=== PATIENT | female | born 1950 | race Caucasian/White ===

== ENCOUNTER → 2018-02-17 13:16 | Outpatient (CLI) | payer OTHER, SELFPAY ==
--- NOTE | 2018-02-17 13:21 | CDU_ITS ---
Reason For Study: Carotid Stenosis Rt. Velocities/BP Lt. Velocities/BP Prox CCA 139/27 cm/sec. Prox CCA 100/20 cm/sec. Mid CCA 121/24 cm/sec. Mid CCA 78/18 cm/sec. Dist CCA 74/17 cm/sec. Dist CCA 72/22 cm/sec. Prox ICA 59/21 cm/sec. Prox ICA 71/24 cm/sec. Mid ICA 83/29 cm/sec. Mid ICA 75/26 cm/sec. Dist ICA 94/30 cm/sec. Dist ICA 111/36 cm/sec. Rt. ICA/CCA = 0.77. Lt. ICA/CCA = 1.42. Prox ECA 85/9 cm/sec. Prox ECA 86/8 cm/sec. Rt. Vert. 29/6 cm/sec. Lt. Vert. 70/29 cm/sec. Right Extracranial There is intimal thickening but no significant atherosclerotic plaque noted in the right common carotid artery. There is homogeneous, smooth atherosclerotic plaque noted in the right internal carotid artery. There is no significant atherosclerotic plaque noted in the right external carotid artery. Antegrade flow is noted in the right vertebral artery. Left Extracranial There is intimal thickening but no significant atherosclerotic plaque noted in the left common carotid artery. There is heterogeneous, irregular atherosclerotic plaque noted in the left internal carotid artery. There is no significant atherosclerotic plaque noted in the left external carotid artery. Antegrade flow is noted in the left vertebral artery. Procedure Carotid Duplex 03644. Exam performed in department. Interpretation Summary Mild (<50%) stenosis right extracranial internal carotid. Mild (<50%) stenosis left extracranial internal carotid. Flow within the vertebral arteries is antegrade bilaterally. Ordering Physician: Cecelia Denny Referring Physician: Cecelia Denny Performed By: Amy Iniguez, KAYLEE, RVT
== END ==
PROVIDERS: Family Provider Internal Medicine; PCP Internal Medicine; Visit Provider Internal Medicine
DX: I65.23 Occlusion and stenosis of bilateral carotid arteries (principal)
CPT/HCPCS: 93880

== ENCOUNTER 2021-07-12 19:44 | Emergency (ER) | payer MEDICARE, OTHER, SELFPAY ==
[2021-07-12 19:45] VITALS: BP 139/72; PULSE 87; RESP 18; TEMP 37.4; O2SAT 95; BMI 47.2
[2021-07-12 20:51] LABS: Absolute Lymphocyte Count 0.68 X10^3/uL (0.83-4.51); Absolute Neutrophil Count 3.7 X10^3/uL (2.0-7.7); Basophil# 0.01 X10^3/uL; Basophil% 0.2 % (0-1); Hematocrit 41.7 % (37-47); Lymphocyte # 0.68 X10^3/ul (0.83-4.51); Lymphocyte % 13.9 % (19-41); Mean Corp Hgb Conc 33.6 g/dL (32-36); Mean Corpuscular Volume 92.5 fL (81-99); Mean Platelet Vol. 10.8 fl (6.2-12.0); Monocyte# 0.48 X10^3/uL; Monocyte% 9.8 % (0-10); NRBC Flagged by Analyzer 0 % (0-5); Neutrophil # 3.69 X10^3/uL (2.7-7.7); Neutrophil % 75.7 % (47-70); Platelet Count 129 K/mm3 (150-450); RBC Distribution Width CV 13.1 % (11.6-14.6); RBC Distribution Width SD 44.3 fl (35.1-43.9); Red Blood Count 4.51 M/mm3 (4.2-5.4); White Blood Count 4.9 K/mm3 (4.4-11.0)
[2021-07-12 21:11] LABS: Anion Gap 9 (5-15); BUN 19 mg/dL (7-18); BUN/Creat Ratio 18.4 RATIO (10-20); Calcium,Total 8.3 mg/dL (8.5-10.1); Chloride 97 mmol/L (98-107); Creatinine, Serum 1.03 mg/dL (0.55-1.02); EST Glomerular Filtration Rate 56 mL/min (>60); Est Glom Filt Rate - Afr Amer 68 mL/min (>60); Estimated Creatinine Clearance 35.46 ml/min; Glucose 116 mg/dL (74-106); Potassium 3.7 mmol/L (3.5-5.1); Sodium Level 132 mmol/L (136-145)
--- NOTE | 2021-07-12 21:20 | EDS_ITS ---
HPI History of Present Illness Chief Complaint: General Illness Informant: patient Onset/Context/Timing Onset: Days (Onset of symptoms July 07) Context: Sudden Onset Timing: Continuous Quality: Upper respiratory and GI Location: Viral illness Current Severity: Mild Maximum Severity: Moderate Worsened by: Nothing Relieved by: Nothing Associated Symptoms Associated Symptoms: Symptoms consistent with Covid Narrative Narrative: Patient is a 70-year-old woman who is unvaccinated and presents because of headache, myalgias, arthralgias, subjective fever, loss of taste and smell, cough and not feeling well. She also reports nausea with diarrhea. Prior similar symptoms: No Recent Illness/Hospitalization: No PFSH PFSH no medical history Allergy/AdvReac Type Severity Reaction Status Date / Time metal Allergy Rash Uncoded 07/12/21 19:48 Social History (Updated 07/12/21 @ 21:[address] Richard José MD) household members: none Smoking Status: Never smoker alcohol intake: current alcohol intake frequency: other substance use type: does not use ROS ROS ED Constitutional Constitutional ED: Reports chills, fever(s), subjective and sweats; Denies weight loss Eyes Eyes: Denies blurry vision, change in vision or diplopia ENT ENT ED: Reports rhinorrhea and sore throat; Denies ear pain Cardiovascular Cardiovascular: Denies chest pain, orthopnea, palpitations or paroxysmal nocturnal dyspnea Respiratory/Chest Respiratory/Chest: Reports cough, dyspnea and dyspnea on exertion; Denies orthopnea, paroxysmal nocturnal dyspnea or sputum Gastrointestinal Gastrointestinal: Reports abdominal pain, diarrhea and nausea; Denies constipa tion or vomiting Genitourinary Genitourinary ED: Denies dysuria, hematuria or urinary frequency Musculoskeletal Musculoskeletal: Denies arthralgias, myalgias or neck pain Integumentary Denies rash Neurologic Neurologic: Reports paresthesias; Denies headache(s) Endocrine Endocrinology: Denies polydipsia, polyphagia or polyuria EXAM Physical Exam Const Vital Signs: 07/12/21 19:45 Temperature 99.3 F H Temperature Source Temporal Pulse Rate 87 Respiratory Rate 18 Blood Pressure 139/72 H Blood Pressure Mean 94 Pulse Ox 95 Oxygen Delivery Method Room Air Positive well nourished, well developed and obese General Appearance ED: well developed and other Patient appears ill but not toxic Nutritional Appearance: obese HEENT Reports TM's clear and moist mucous membranes HEENT Narrative: Nares patent with clear drainage. Tympanic Membrane ED: Yes TM's clear Eyes PERRL and EOMs intact bilaterally General Eye ED: Negative for pale conjunctiva or scleral icterus Neck no lymphadenopathy, supple and no JVD Chest Wall inspection of chest normal Resp normal respiratory effort and No clear to auscultation bilaterally Auscultation: rales bilateral lower Cardio regular rate, regular rhythm, S1 normal heart sound, S2 normal heart sound and no murmurs GI normal to inspection, nondistended, normoactive bowel sounds, non-tender and non-distended Palpation: soft Back/Spine no CVA tenderness Cervical Spine: Negative for cervical spine tenderness Thoracic Spine / Upper Back: Negative for thoracic spinal tenderness or paraspinal muscle tenderness Extremity normal to inspection General Extremety ED: Negative for edema or tenderness General Extremity: Negative for edema Neuro oriented x3 and CN's II-XII intact bilaterally Sensorium / Orientation: alert Motor Exam: strength 5/5 throughout Psych mental status grossly normal Skin no rashes or lesions noted and no wounds MDM MDM MDM Narrative Medical decision making narrative: Patient presents with symptoms consistent with Covid. Patient's Covid test is positive. Since she has bilateral rales she has Covid pneumonia. X-ray will not change diagnosis or treatment. She was referred for monoclonal antibody treatment. Lab Data Attestation: I reviewed the patient's lab results. Lab results narrative: Patient's blood work reveals slight elevation in creatinine of 1.03 with a estimated GFR of 56. Labs: Laboratory Results - last 24 hr 07/12/21 07/12/21 20:40 20:40 WBC 4.9 RBC 4.51 Hgb 14.0 Hct 41.7 MCV 92.5 MCH 31.0 MCHC 33.6 RDW Std Deviation 44.3 H RDW Coeff of Nicola 13.1 Plt Count 129 L MPV 10.8 Immature Gran % (Auto) 0.400 Neut % (Auto) 75.7 H Lymph % (Auto) 13.9 L [place] % (Auto) 9.8 Eos % (Auto) 0.0 Baso % (Auto) 0.2 Absolute Neuts (auto) 3.7 Absolute Lymphs (auto) 0.68 L Nucleated RBC % 0 Sodium 132 L Potassium 3.7 Chloride 97 L Carbon Dioxide 26.0 Anion Gap 9 BUN 19 H Creatinine 1.03 H Estim Creat Clear Calc 35.46 Est GFR (MDRD) Af Amer 68 Est GFR (MDRD) Non-Af 56 L BUN/Creatinine Ratio 18.4 Glucose 116 H Calcium 8.3 L Discharge Plan Triage Chief Complaint: General Illness ED Provider: Richard José Dx/Rx/DC Orders Clinical Impression: Pneumonia due to 2019-nCoV Instructions: Coronavirus Disease 2019 (COVID-19): Caring for Yourself or Others Other Ambulatory Orders: COVID Outpatient Monoclonal Antibody Referral (Routine) Timeframe: 1 Day Facility: [facility] - Location: [facility] Ordered By: Dr. Richard José Primary Care Provider: Cecelia Denny Referrals: Cecelia Denny DO [Primary Care Provider] - Disposition Disposition: Home, Self Care
[2021-07-12 22:02] VITALS: BP 106/73; PULSE 86; RESP 22; O2SAT 92
== END 2021-07-12 22:04 | disposition home or self-care (01) ==
LOC: ED 21:44
PROVIDERS: Emergency Provider Emergency Medicine; PCP Internal Medicine
DX: U07.1 COVID-19 (principal); J12.82 Pneumonia due to coronavirus disease 2019; E66.9 Obesity, unspecified; Z68.42 Body mass index [BMI] 45.0-49.9, adult
CPT/HCPCS: 80048; 85025; 87426; 99282; A4216

== ENCOUNTER 2021-07-13 18:46 | Inpatient (IN) | payer MEDICARE, OTHER, SELFPAY ==
[2021-07-13 18:48] VITALS: BP 128/73; PULSE 51; RESP 16; TEMP 36; O2SAT 89; BMI 48.6
[2021-07-13 20:37] VITALS: BP 123/49; PULSE 93; RESP 28; O2SAT 88; O2SAT 93
[2021-07-13 20:55] VITALS: BP 124/73; PULSE 86; RESP 32; O2SAT 93
--- NOTE | 2021-07-13 21:06 | EKG12_ITS ---
Test Reason : SOB Blood Pressure : / mmHG Vent. Rate : 089 BPM Atrial Rate : 089 BPM P-R Int : 154 ms QRS Dur : 074 ms QT Int : 338 ms P-R-T Axes : 027 -38 032 degrees QTc Int : 411 ms Normal sinus rhythm Left axis deviation Nonspecific ST and T wave abnormality Abnormal ECG Confirmed by MURPHY CAMPA, GABINO ([id number]), news video editor MARTIN CHOU ([id number]) on 07/15/2021 1:32:38 PM Referred By: KHRIS Confirmed By:GABINO ARRINGTON MD
--- NOTE | 2021-07-13 21:07 | ED.VIS.DYS ---
HPI History of Present Illness Chief Complaint: Shortness of Breath Informant: patient Onset/Context/Timing Onset: Days (2) Context: gradual Timing: Continuous Quality: Positive for Dyspnea on exertion Current Severity: Mild Maximum Severity: Moderate Worsened by: Exertion Relieved by: Rest Associated Symptoms cough Chest Pain: Positive for None Narrative Narrative: Patient had a positive outpatient Covid test yesterday for symptoms that are on day #7 today of cough, fatigue, fevers, chills, myalgias, diarrhea, change in taste. She is being referred for outpatient monoclonal antibody infusion, but she was watching her pulse oximeter before she could get the infusion confirmation, she began getting hypoxic today at 88% at home. She has no past medical history otherwise and takes no medications at home before this illness. Patient was not vaccinated for Covid. She lives at home alone and has been feeling so weak she is having trouble getting around. [facility] Medical History Non-smoker Varicose veins of bilateral lower extremities with other complications Home Medications NK 07/12/21 [History Last Taken Unknown] Allergy/AdvReac Type Severity Reaction Status Date / Time metal Allergy Rash Uncoded 07/13/21 18:48 Surgical History (Updated 07/13/21 @ 20:38 by Bert Caputo) History of bilateral knee replacement Social History household members: none Smoking Status: Never smoker alcohol intake: current alcohol intake frequency: other substance use type: does not use ROS ROS ED Constitutional Constitutional ED: Reports body ache(s), chills, fatigue, fever(s), headache(s) and malaise Eyes Eyes: Denies change in vision or diplopia ENT ENT ED: Denies rhinorrhea or sore throat Cardiovascular Cardiovascular: Denies chest pain or palpitations Respiratory/Chest Respiratory/Chest: Reports cough, dyspnea and dyspnea on exertion Gastrointestinal Gastrointestinal: Reports diarrhea; Denies abdominal pain, nausea or vomiting Genitourinary Genitourinary ED: Denies dysuria or hematuria Musculoskeletal Musculoskeletal: Denies back pain or neck pain Integumentary Denies abscess or rash Neurologic Neurologic: Reports headache(s); Denies paresthesias or weakness Psychiatric Psychiatric: Denies anxiety or suicidal thoughts EXAM Physical Exam Const Vital Signs: 07/13/21 18:48 07/13/21 20:37 07/13/21 20:55 Temperature 96.8 F L Temperature Source Temporal Pulse Rate 51 L 93 86 Respiratory Rate 16 28 H 32 H Respiratory Effort Short of Breath Respiratory Depth Shallow Respiratory Pattern Irregular Blood Pressure 128/73 H 123/49 H 124/73 H Blood Pressure Mean 91 73 90 Pulse Ox 89 88 93 Oxygen Delivery Method Room Air Nasal Cannula Nasal Cannula Oxygen Flow Rate (L/min) 3 3 07/13/21 21:15 07/13/21 21:51 07/13/21 22:12 Temperature 98.6 F 98.0 F Temperature Source Temporal Temporal Pulse Rate 85 87 Respiratory Rate 24 H 20 H Respiratory Effort Respiratory Depth Respiratory Pattern Blood Pressure 117/61 107/70 Blood Pressure Mean 79 82 Pulse Ox 94 93 93 Oxygen Delivery Method Room Air Nasal Cannula Nasal Cannula Oxygen Flow Rate (L/min) 3 3 3 07/14/21 00:23 Temperature 96.9 F L Temperature Source Temporal Pulse Rate 76 Respiratory Rate 29 H Respiratory Effort Respiratory Depth Respiratory Pattern Blood Pressure 109/63 Blood Pressure Mean 78 Pulse Ox 93 Oxygen Delivery Method Nasal Cannula Oxygen Flow Rate (L/min) 3 Positive well nourished and well developed Constitutional Narrative: Malaised-appearing, no distress General Appearance ED: well developed and NAD HEENT Reports moist mucous membranes normocephalic and atraumatic Eyes PERRL and EOMs intact bilaterally Neck full ROM and supple Resp normal respiratory effort and clear to auscultation bilaterally Resp Narrative: Frequent bronchospasm Cardio regular rate, regular rhythm and no murmurs Rate: Negative for tachycardic GI non-tender and non-distended Auscultation: normoactive bowel sounds Palpation: soft Back/Spine no CVA tenderness General Back: other FROM Extremity normal to inspection and no calf tenderness General Extremety ED: Negative for edema, pulses abnormal or tenderness General Extremity: Negative for edema or pulses abnormal Neuro oriented x3, CN's II-XII intact bilaterally and no sensory deficits noted Sensorium / Orientation: awake and alert Motor Exam: strength 5/5 throughout Skin no rashes or lesions noted and no wounds MDM MDM MDM Narrative Medical decision making narrative: Patient is hemodynamically stable, and clinically stable on a 2 L nasal cannula satting at 93%. She feels she is too weak to go home on oxygen even if we have that is an option. She was given Decadron 6 mg, and she was ruled out for pulmonary embolus. Discussed with hospitalist. Lab Data Attestation: I reviewed the patient's lab results. Labs: Laboratory Results - last 24 hr 07/13/21 07/13/21 07/13/21 20:43 20:43 21:41 WBC 5.4 RBC 4.44 Hgb 13.7 Hct 41.2 MCV 92.8 MCH 30.9 MCHC 33.3 RDW Std Deviation 44.7 H RDW Coeff of Nicola 13.1 Plt Count 132 L MPV 10.9 Immature Gran % (Auto) 0.600 Neut % (Auto) 75.5 H Lymph % (Auto) 15.4 L Campbell % (Auto) 8.3 Eos % (Auto) 0.0 Baso % (Auto) 0.2 Absolute Neuts (auto) 4.1 Absolute Lymphs (auto) 0.84 Nucleated RBC % 0 Differential Comment SCANNED D-Dimer Quant (PE/DVT) Sodium 133 L Potassium 3.8 Chloride 97 L Carbon Dioxide 26.0 Anion Gap 10 BUN 26 H Creatinine 1.11 H Estim Creat Clear Calc 79.06 Est GFR (MDRD) Af Amer 62 Est GFR (MDRD) Non-Af 51 L BUN/Creatinine Ratio 23.4 H Glucose 114 H Lactic Acid 1.3 Calcium 8.3 L Total Bilirubin 0.40 AST 79 H ALT 58 H Alkaline Phosphatase 61 Troponin I High Sens 14 Total Protein 7.7 Albumin 2.9 L Globulin 4.8 H Albumin/Globulin Ratio 0.6 L 07/13/21 21:41 WBC RBC Hgb Hct MCV MCH MCHC RDW Std Deviation RDW Coeff of Nicola Plt Count MPV Immature Gran % (Auto) Neut % (Auto) Lymph % (Auto) Campbell % (Auto) Eos % (Auto) Baso % (Auto) Absolute Neuts (auto) Absolute Lymphs (auto) Nucleated RBC % Differential Comment D-Dimer Quant (PE/DVT) 2.85 H* Sodium Potassium Chloride Carbon Dioxide Anion Gap BUN Creatinine Estim Creat Clear Calc Est GFR (MDRD) Af Amer Est GFR (MDRD) Non-Af BUN/Creatinine Ratio Glucose Lactic Acid Calcium Total Bilirubin AST ALT Alkaline Phosphatase Troponin I High Sens Total Protein Albumin Globulin Albumin/Globulin Ratio Radiography Diagnostic Testing: Radiology Impression Chest X-Ray 07/13/21 21:20 IMPRESSION: Perihilar and lower lobe reticular and alveolar opacities suspicious for pneumonia. Electronically Signed: Elroy Joseph DO at 22:11 EDT Tel , Service support , Chest CTA 07/13/21 22:32 IMPRESSION: Findings suggest multifocal pneumonia. Normal CTA chest examination, without a demonstrated pulmonary embolism or arterial dissection. Electronically Signed: Adryan Meza MD at 0:18 EDT Tel , Service support , EKG Initial EKG: Attestation: I personally reviewed and interpreted this EKG as follows: Interpretation: Sinus Rhythm, No Acute Injury Pattern and LAFB Comments: PAC, PVC Discharge Plan Dx/Rx/DC Orders Clinical Impression: Pneumonia due to 2019-nCoV, Hypoxemia, Generalized weakness Disposition Disposition: [facility]
[2021-07-13 21:15] VITALS: O2SAT 94
--- NOTE | 2021-07-13 21:20 | RAD_ITS ---
INDICATION: cough EXAMINATION/TECHNIQUE: X-RAY - XR Chest 1 View COMPARISON: Chest x-ray 06/02/2012 FINDINGS: LINES/DEVICES: None. LUNGS: Mixed reticular and alveolar opacities perihilar and lower lobe distribution. No pleural effusion. No pneumothorax. No mass or nodule. MEDIASTINUM AND CARDIOVASCULAR STRUCTURES: Normal size heart with no evidence of pulmonary vascular congestion. BONES AND SOFT TISSUES: Age expected degenerative changes. No fracture or malalignment. RAD/Chest 1 View (Portable) IMPRESSION: Perihilar and lower lobe reticular and alveolar opacities suspicious for pneumonia. Electronically Signed: Elroy Joseph DO at 22:11 EDT Tel , Service support ,
[2021-07-13 21:40] LABS: Absolute Lymphocyte Count 0.84 X10^3/uL (0.83-4.51); Absolute Neutrophil Count 4.1 X10^3/uL (2.0-7.7); Basophil# 0.01 X10^3/uL; Basophil% 0.2 % (0-1); Hematocrit 41.2 % (37-47); Hemoglobin 13.7 g/dL (12.0-15.0); Lymphocyte # 0.84 X10^3/ul (0.83-4.51); Lymphocyte % 15.4 % (19-41); Mean Corp Hgb Conc 33.3 g/dL (32-36); Mean Corpuscular Hgb 30.9 pg (27.0-32.0); Mean Corpuscular Volume 92.8 fL (81-99); Mean Platelet Vol. 10.9 fl (6.2-12.0); Monocyte# 0.45 X10^3/uL; Monocyte% 8.3 % (0-10); NRBC Flagged by Analyzer 0 % (0-5); Neutrophil # 4.11 X10^3/uL (2.7-7.7); Neutrophil % 75.5 % (47-70); POSITIVE MORPHOLOGY YES; Platelet Count 132 K/mm3 (150-450); RBC Distribution Width CV 13.1 % (11.6-14.6); RBC Distribution Width SD 44.7 fl (35.1-43.9); Red Blood Count 4.44 M/mm3 (4.2-5.4); White Blood Count 5.4 K/mm3 (4.4-11.0)
[2021-07-13 21:42] LABS: Differential Indicated SCAN CRITERIA MET
[2021-07-13] MEDS: dexAMETHasone 4 MG/ML Vial 6 MG IV (21:50)
[2021-07-13 21:51] VITALS: BP 117/61; PULSE 85; RESP 24; TEMP 37; O2SAT 93
[2021-07-13 21:52] LABS: ALB/GLOB Ratio 0.6 RATIO (0.9-2.4); AST(SGOT) 79 U/L (15-37); Alanine Aminotransfer ALT/SGPT 58 U/L (13-56); Albumin, Serum 2.9 g/dL (3.2-5.0); Alkaline Phosphatase 61 U/L (45-117); Anion Gap 10 (5-15); BUN 26 mg/dL (7-18); BUN/Creat Ratio 23.4 RATIO (10-20); Calcium,Total 8.3 mg/dL (8.5-10.1); Chloride 97 mmol/L (98-107); Creatinine, Serum 1.11 mg/dL (0.55-1.02); EST Glomerular Filtration Rate 51 mL/min (>60); Est Glom Filt Rate - Afr Amer 62 mL/min (>60); Estimated Creatinine Clearance 79.06 ml/min; Globulin 4.8 g/dL (2.2-4.2); Glucose 114 mg/dL (74-106); Potassium 3.8 mmol/L (3.5-5.1); Protein, Total 7.7 g/dL (6.4-8.2); Sodium Level 133 mmol/L (136-145); Troponin-I HS 14 pg/mL (3.0-54.0)
[2021-07-13 22:05] LABS: Differential Comment SCANNED
[2021-07-13 22:09] LABS: D-Dimer Quantitative (DVT/PE) 2.85 FEU/ug/m (0.27-0.49)
[2021-07-13 22:12] VITALS: BP 107/70; PULSE 87; RESP 20; RESP 25; TEMP 36.7; O2SAT 93
--- NOTE | 2021-07-13 22:32 | CT_ITS ---
STUDY: CTA CHEST REASON FOR EXAM: Female, 70 years old. Covid, hypoxia, elevated d-dimer RADIATION DOSAGE (If Supplied By Facility): CTDIvol = ( 19.76 ) mGy, DLP = ( 524.44 ) mGycm TECHNIQUE: The examination was performed with the intravenous administration of IV 100mL Isovue-370. Post-processing of the angiographic images was performed, with multiplanar reformation and 3D reconstruction. Individualized dose optimization techniques were used for this CT. COMPARISON: None. FINDINGS: Normal enhancement of the main pulmonary artery and right and left pulmonary arteries. Normal enhancement of the bilateral peripheral pulmonary arteries. Respiratory motion complicates evaluation of the peripheral pulmonary arteries. There is no demonstrated central or segmental pulmonary embolism. There is prominence of the main pulmonary arteries without peripheral pulmonary vascular congestion, suggesting pulmonary hypertension. Normal thoracic aorta and visualized great vessels. There is no demonstrated aortic dissection. Normal heart and pericardium. Normal mediastinum. Normal hilar regions. Normal visualized trachea and bronchi. The lungs are well expanded. Diffuse scattered bilateral groundglass densities. Normal pleura. Normal chest wall structures. There are degenerative changes of thoracic spine. No acute abnormal finding in the visualized upper abdomen. CT/CTA Chest W/WO Contrast IMPRESSION: Findings suggest multifocal pneumonia. Normal CTA chest examination, without a demonstrated pulmonary embolism or arterial dissection. Electronically Signed: Adryan Meza MD at 0:18 EDT Tel , Service support ,
[2021-07-13 22:34] LABS: Lactic Acid 1.3 mmol/L (0.4-1.9)
[2021-07-14] VITALS (10 sets, daily range): BP systolic 108–132; BP diastolic 62–83; PULSE 68–100; RESP 18–29; TEMP 36.1–37.2; O2SAT 92–95; BMI 47.5
[2021-07-14] MEDS: 0.9% Normal Saline 1,000 ML 999 ML IV (00:05)
--- NOTE | 2021-07-14 00:45 | HP.PCM.HOS_ITS ---
HPI - General General Date of Admission: 07/14/21 HPI Narrative CHRIS CURRAN, is a 70 F who presents with hypoxia as well as persistent cough and fatigue. Symptoms of Covid started about 7 days ago and she is unvaccinated. She is supposed to get the monoclonal antibody infusion after presentation to the ER yesterday so she was watching her pulse oximetry at home, however she notes that she was becoming hypoxic and came in when she found that her oxygen saturation was 88%. She was found to have an elevated D-dimer so CTA was performed which was negative for PEs but did show Covid pneumonia. [facility] Medical History Non-smoker Varicose veins of bilateral lower extremities with other complications Home Medications NK 07/12/21 [History Last Taken Unknown] Allergy/AdvReac Type Severity Reaction Status Date / Time metal Allergy Rash Uncoded 07/13/21 18:48 Family History (Updated 07/14/21 @ 02:[address] Jesus Manuel Carty MD) Other Diabetes Surgical History (Updated 07/13/21 @ 20:38 by Bert Caputo) History of bilateral knee replacement Social History household members: none Smoking Status: Never smoker alcohol intake: current alcohol intake frequency: other substance use type: does not use ROS Constitutional Constitutional: Reports chills, fatigue and fever(s); Denies malaise Eyes Eyes: Denies blurry vision ENT HEENT: Reports headache(s); Denies nasal discharge Cardiovascular Cardiovascular: Denies chest pain, dyspnea on exertion or syncope Respiratory/Chest Respiratory/Chest: Reports cough; Denies shortness of breath at rest or shortn ess of breath with exertion Gastrointestinal Gastrointestinal: Reports diarrhea; Denies constipation, nausea or vomiting Genitourinary Genitourinary: Denies dysuria Neurologic Neurologic: Denies focal weakness, numbness or tremor(s) Psychiatric Psychiatric: Denies anxiety or depression Vital Signs Vital Signs Vital Signs: 07/13/21 18:48 07/13/21 20:37 07/13/21 20:55 Temperature 96.8 F L Temperature Source Temporal Pulse Rate 51 L 93 86 Respiratory Rate 16 28 H 32 H Respiratory Effort Short of Breath Respiratory Depth Shallow Respiratory Pattern Irregular Blood Pressure 128/73 H 123/49 H 124/73 H Blood Pressure Mean 91 73 90 Pulse Ox 89 88 93 Oxygen Delivery Method Room Air Nasal Cannula Nasal Cannula Oxygen Flow Rate (L/min) 3 3 07/13/21 21:15 07/13/21 21:51 07/13/21 22:12 Temperature 98.6 F 98.0 F Temperature Source Temporal Temporal Pulse Rate 85 87 Respiratory Rate 24 H 20 H Respiratory Effort Respiratory Depth Respiratory Pattern Blood Pressure 117/61 107/70 Blood Pressure Mean 79 82 Pulse Ox 94 93 93 Oxygen Delivery Method Room Air Nasal Cannula Nasal Cannula Oxygen Flow Rate (L/min) 3 3 3 07/14/21 00:23 Temperature 96.9 F L Temperature Source Temporal Pulse Rate 76 Respiratory Rate 29 H Respiratory Effort Respiratory Depth Respiratory Pattern Blood Pressure 109/63 Blood Pressure Mean 78 Pulse Ox 93 Oxygen Delivery Method Nasal Cannula Oxygen Flow Rate (L/min) 3 Weight Weight: 241 lb Body Mass Index (BMI) 48.6 Physical Exam Const alert, oriented x3 and no apparent distress General Appearance: cooperative HEENT normocephalic and moist oral mucous membranes Eyes PERRL, EOMs intact bilaterally and conjunctivae normal Neck supple and no JVD Resp normal respiratory effort, no retractions, no use of accessory muscles and clear to auscultation bilaterally Auscultation: Negative for crackles, rales, rhonchi or wheezes Cardio regular rate, regular rhythm, S1 normal heart sound, S2 normal heart sound and no murmurs GI soft to palpation, non-tender and non-distended; Negative for hepatosplenomegaly Extremity no clubbing, cyanosis or edema Skin no rashes or lesions noted Neuro no focal motor deficits and no sensory deficits noted Psych affect normal Appearance: appropriate Results Lab / Micro Data Result Diagrams: 07/13/21 20:43 07/13/21 20:43 Labs: Laboratory Results - last 24 hr 07/13/21 20:43: WBC 5.4, RBC 4.44, Hgb 13.7, Hct 41.2, MCV 92.8, MCH 30.9, MCHC 33.3, RDW Std Deviation 44.7 H, RDW Coeff of Nicola 13.1, Plt Count 132 L, MPV 10.9, Immature Gran % (Auto) 0.600, Neut % (Auto) 75.5 H, Lymph % (Auto) 15.4 L, [place] % (Auto) 8.3, Eos % (Auto) 0.0, Baso % (Auto) 0.2, Absolute Neuts (auto) 4.1, Absolute Lymphs (auto) 0.84, Nucleated RBC % 0, Differential Comment SCANNED 07/13/21 20:43: Sodium 133 L, Potassium 3.8, Chloride 97 L, Carbon Dioxide 26.0, Anion Gap 10, BUN 26 H, Creatinine 1.11 H, Estim Creat Clear Calc 79.06, Est GFR (MDRD) Af Amer 62, Est GFR (MDRD) Non-Af 51 L, BUN/Creatinine Ratio 23.4 H, Glucose 114 H, Calcium 8.3 L, Total Bilirubin 0.40, AST 79 H, ALT 58 H, Alkaline Phosphatase 61, Troponin I High Sens 14, Total Protein 7.7, Albumin 2.9 L, Globulin 4.8 H, Albumin/Globulin Ratio 0.6 L 07/13/21 21:41: Lactic Acid 1.3 07/13/21 21:41: D-Dimer Quant (PE/DVT) 2.85 H* Micro: Microbiology 07/13/21 21:41 Nasal Secretion SARS-CoV-2 Antigen (Rapid) - Final SARS-CoV-2 (COVID 19) Radiology Impression Chest X-Ray 07/13/21 21:20 IMPRESSION: Perihilar and lower lobe reticular and alveolar opacities suspicious for pneumonia. Electronically Signed: Elroy Joseph DO at 22:11 EDT Tel , Service support , Chest CTA 07/13/21 22:32 IMPRESSION: Findings suggest multifocal pneumonia. Normal CTA chest examination, without a demonstrated pulmonary embolism or arterial dissection. Electronically Signed: Adryan Meza MD at 0:18 EDT Tel , Service support , Assessment & Plan Assessment/Plan (1) Pneumonia due to 2019-nCoV: (2) Acute respiratory failure with hypoxia: PLAN: 1. Acute hypoxic respiratory failure secondary to COVID-19 pneumonia -We will continue with remdesivir and Decadron since symptoms onset is within the last 7 days -Continue with Lovenox, CT of the chest was negative for PE -Encourage incentive spirometry -Encourage ambulation -Continue with nasal cannula -PT/OT for evaluation and possible placement as she is complaining of being a li ttle bit weak -Sputum culture pending DVT: Lovenox Charges/Coding Visit Charges Inpatient E&M: 37193 Init Hosp L2
--- NOTE | 2021-07-14 04:58 | PCS.PANDOC ---
PANDEMIC DOCUMENTATION INITIATED: Date: 06/17/2021 Time: 190
[2021-07-14 07:02] LABS: Absolute Lymphocyte Count 0.67 X10^3/uL (0.83-4.51); Absolute Neutrophil Count 3.2 X10^3/uL (2.0-7.7); Hematocrit 38.7 % (37-47); Hemoglobin 12.7 g/dL (12.0-15.0); Lymphocyte # 0.67 X10^3/ul (0.83-4.51); Lymphocyte % 16.3 % (19-41); Mean Corp Hgb Conc 32.8 g/dL (32-36); Mean Corpuscular Hgb 31.1 pg (27.0-32.0); Mean Corpuscular Volume 94.6 fL (81-99); Mean Platelet Vol. 11.1 fl (6.2-12.0); Monocyte# 0.27 X10^3/uL; Monocyte% 6.6 % (0-10); NRBC Flagged by Analyzer 0 % (0-5); Neutrophil # 3.15 X10^3/uL (2.7-7.7); Neutrophil % 76.6 % (47-70); POSITIVE MORPHOLOGY YES; Platelet Count 142 K/mm3 (150-450); RBC Distribution Width CV 13.3 % (11.6-14.6); RBC Distribution Width SD 46.8 fl (35.1-43.9); Red Blood Count 4.09 M/mm3 (4.2-5.4); White Blood Count 4.1 K/mm3 (4.4-11.0)
[2021-07-14 07:08] LABS: Differential Indicated SCAN CRITERIA MET
[2021-07-14 07:22] LABS: ALB/GLOB Ratio 0.5 RATIO (0.9-2.4); AST(SGOT) 68 U/L (15-37); Alanine Aminotransfer ALT/SGPT 50 U/L (13-56); Albumin, Serum 2.6 g/dL (3.2-5.0); Alkaline Phosphatase 58 U/L (45-117); Anion Gap 8 (5-15); BUN 21 mg/dL (7-18); BUN/Creat Ratio 30.3 RATIO (10-20); Calcium,Total 8.4 mg/dL (8.5-10.1); Chloride 101 mmol/L (98-107); Creatinine, Serum 0.69 mg/dL (0.55-1.02); EST Glomerular Filtration Rate 88 mL/min (>60); Est Glom Filt Rate - Afr Amer 107 mL/min (>60); Estimated Creatinine Clearance 36.53 ml/min; Globulin 4.8 g/dL (2.2-4.2); Glucose 151 mg/dL (74-106); Potassium 4.2 mmol/L (3.5-5.1); Protein, Total 7.4 g/dL (6.4-8.2); Sodium Level 136 mmol/L (136-145)
[2021-07-14 08:11] LABS: Differential Comment SCANNED
[2021-07-14 09:26] LABS: Reactive Lymphocyte 1+
[2021-07-14] MEDS: dexAMETHasone 4 MG Tablet 6 MG PO (09:41)
[2021-07-14] MEDS: Enoxaparin 40 MG/0.4 ML Syringe SC ×2 (09:41→22:09)
[2021-07-14] MEDS: guaiFENesin/D-Methorphan TAB.SR.12H 1 TABLET PO ×2 (13:16→22:09)
--- NOTE | 2021-07-14 13:23 | PCM.PN.HOSP ---
Subjective Subjective Patient admitted with 7 days of cold symptoms started with cough, shortness of breath on exertion, weakness, loss of taste and smell, diarrhea. Patient did not had Covid vaccine. She was found hypoxic at home 88% on room air. Elevated D-dimer CTA negative for PE but showed Covid 19 pneumonia Objective Data Objective Data Vital Signs: Vital Signs Temp Pulse Resp BP Pulse Ox 98.1 F 77 18 110/67 92 07/14/21 13:17 07/14/21 13:17 07/14/21 13:17 07/14/21 13:17 07/14/21 13:17 Oxygen Flow Rate (L/min) 4 Oxygen Delivery Method Room Air Weight: 243 lb 3.2 oz Body Mass Index (BMI) 47.5 Intake & Output: Intake and Output for Last 24 Hours 07/12/21 07/13/21 07/14/21 23:59 23:59 23:59 Intake Total 1620 / 1620 Balance 1620 / 1620 Lab / Micro Data Result Diagrams: 07/14/21 05:58 07/14/21 05:58 Labs: Laboratory Results - last 24 hr 07/13/21 20:43: WBC 5.4, RBC 4.44, Hgb 13.7, Hct 41.2, MCV 92.8, MCH 30.9, MCHC 33.3, RDW Std Deviation 44.7 H, RDW Coeff of Nicola 13.1, Plt Count 132 L, MPV 10.9, Immature Gran % (Auto) 0.600, Neut % (Auto) 75.5 H, Lymph % (Auto) 15.4 L, [place] % (Auto) 8.3, Eos % (Auto) 0.0, Baso % (Auto) 0.2, Absolute Neuts (auto) 4.1, Absolute Lymphs (auto) 0.84, Nucleated RBC % 0, Differential Comment SCANNED 07/13/21 20:43: Sodium 133 L, Potassium 3.8, Chloride 97 L, Carbon Dioxide 26.0, Anion Gap 10, BUN 26 H, Creatinine 1.11 H, Estim Creat Clear Calc 79.06, Est GFR (MDRD) Af Amer 62, Est GFR (MDRD) Non-Af 51 L, BUN/Creatinine Ratio 23.4 H, Glucose 114 H, Calcium 8.3 L, Total Bilirubin 0.40, AST 79 H, ALT 58 H, Alkaline Phosphatase 61, Troponin I High Sens 14, Total Protein 7.7, Albumin 2.9 L, Globulin 4.8 H, Albumin/Globulin Ratio 0.6 L 07/13/21 21:41: Lactic Acid 1.3 07/13/21 21:41: D-Dimer Quant (PE/DVT) 2.85 H* 07/14/21 05:58: WBC 4.1 L, RBC 4.09 L, Hgb 12.7, Hct 38.7, MCV 94.6, MCH 31.1, MCHC 32.8, RDW Std Deviation 46.8 H, RDW Coeff of Nicola 13.3, Plt Count 142 L, MPV 11.1, Immature Gran % (Auto) 0.500, Neut % (Auto) 76.6 H, Lymph % (Auto) 16.3 L, [place] % (Auto) 6.6, Eos % (Auto) 0.0, Baso % (Auto) 0.0, Absolute Neuts (auto) 3.2, Absolute Lymphs (auto) 0.67 L, Nucleated RBC % 0, Differential Comment SCANNED, Atypical Lymphocytes DELIVERY MERCHANDISER, Reactive Lymphocytes 1+ 07/14/21 05:58: Sodium 136, Potassium 4.2, Chloride 101, Carbon Dioxide 27.0, Anion Gap 8, BUN 21 H, Creatinine 0.69, Estim Creat Clear Calc 36.53, Est GFR (MDRD) Af Amer 107, Est GFR (MDRD) Non-Af 88, BUN/Creatinine Ratio 30.3 H, Glucose 151 H, Calcium 8.4 L, Total Bilirubin 0.40, AST 68 H, ALT 50, Alkaline Phosphatase 58, Total Protein 7.4, Albumin 2.6 L, Globulin 4.8 H, Albumin/Globulin Ratio 0.5 L Micro: Microbiology 07/13/21 21:41 Nasal Secretion SARS-CoV-2 Antigen (Rapid) - Final SARS-CoV-2 (COVID 19) Radiography Diagnostic Testing: Radiology Impression Chest X-Ray 07/13/21 21:20 IMPRESSION: Perihilar and lower lobe reticular and alveolar opacities suspicious for pneumonia. Electronically Signed: Elroy Joseph DO at 22:11 EDT Tel , Service support , Chest CTA 07/13/21 22:32 IMPRESSION: Findings suggest multifocal pneumonia. Normal CTA chest examination, without a demonstrated pulmonary embolism or arterial dissection. Electronically Signed: Adryan Meza MD at 0:18 EDT Tel , Service support , Physical Exam Narrative Physical exam. General: Alert, Oriented x3, Cooperative HEENT: Atraumatic, PERRLA, EOMI, Normocephalic Oral: No Gingival or Mucosal Lesions/ Ulcerations Neck: Supple, No JVD, Negative Carotid Bruits Lungs: Air entry diminished in bilateral lung bases. Mild bilateral fine crackles. Cardiovascular: Regular rate, Regular Rhythm, Normal S1, Normal S2, No murmurs Abdomen: Bowel Sounds Present, Soft, Non Tender, Non-Distended : No renal angle tenderness. No suprapubic tenderness. Extremities: No edema, Capillary Refill Less than 3 Seconds Skin: No rashes, No breakdown Musculoskeletal: No Tenderness to Palpation of Joints or Extremities Neurological: Cranial nerves II-XII grossly intact, DTR 2+/4 and Symmetrical, Neuro grossly intact Psych/Mental Status: Normal Affect, Appropriate. Assessment & Plan Assessment/Plan (1) Acute respiratory failure with hypoxia: (2) Pneumonia due to 2019-nCoV: PLAN: This is a 70-year-old female admitted with cough, shortness of breath on exertion nonspecific generalized symptoms of COVID-19 pneumonia. 1. Acute hypoxic respiratory failure secondary to COVID-19 pneumonia: Patient is started on remdesivir and Decadron and discontinued. CTA chest negative for PE as mentioned below. Incentive spirometry, Pep and Mucinex D. Monitor labs CBC CMP while patient on remdesivir. Blood cultures are negative. PT and OT evaluation. Sputum culture ordered. 2. Mild acute viral hepatitis due to COVID-19: AST 68. VTE prophylaxis: Lovenox 40 mgl subcu twice daily. Discontinue if platelet count drops less than 50,000 or hemoglobin less than 8 g% Clinical Impression(s) from Imaging Studies Chest X-Ray 07/13/21 21:20 IMPRESSION: Perihilar and lower lobe reticular and alveolar opacities suspicious for pneumonia. Chest CTA 09/11/21 22:32 IMPRESSION: Findings suggest multifocal pneumonia. Normal CTA chest examination, without a demonstrated pulmonary embolism or arterial dissection. Electronically Signed: Adryan Meza MD at 0:18 EDT Tel , Service support , Charges/Coding Visit Charges Inpatient E&M: 00045 Subs Hosp L2
[2021-07-15] VITALS (7 sets, daily range): BP systolic 104–116; BP diastolic 62–74; PULSE 88–101; RESP 18–24; TEMP 36.6–37; O2SAT 86–94
[2021-07-15 06:47] LABS: Absolute Lymphocyte Count 0.88 X10^3/uL (0.83-4.51); Absolute Neutrophil Count 6.7 X10^3/uL (2.0-7.7); Basophil# 0.02 X10^3/uL; Basophil% 0.2 % (0-1); Hemoglobin 13.4 g/dL (12.0-15.0); Lymphocyte # 0.88 X10^3/ul (0.83-4.51); Lymphocyte % 10.6 % (19-41); Mean Corp Hgb Conc 32.7 g/dL (32-36); Mean Corpuscular Hgb 30.7 pg (27.0-32.0); Monocyte# 0.62 X10^3/uL; Monocyte% 7.5 % (0-10); NRBC Flagged by Analyzer 0 % (0-5); Neutrophil # 6.73 X10^3/uL (2.7-7.7); Neutrophil % 81.1 % (47-70); Platelet Count 169 K/mm3 (150-450); RBC Distribution Width CV 12.9 % (11.6-14.6); Red Blood Count 4.36 M/mm3 (4.2-5.4); White Blood Count 8.3 K/mm3 (4.4-11.0)
[2021-07-15 07:28] LABS: ALB/GLOB Ratio 0.5 RATIO (0.9-2.4); AST(SGOT) 68 U/L (15-37); Alanine Aminotransfer ALT/SGPT 56 U/L (13-56); Albumin, Serum 2.5 g/dL (3.2-5.0); Alkaline Phosphatase 63 U/L (45-117); Anion Gap 7 (5-15); BUN 25 mg/dL (7-18); BUN/Creat Ratio 40.7 RATIO (10-20); Calcium,Total 8.7 mg/dL (8.5-10.1); Chloride 105 mmol/L (98-107); Creatinine, Serum 0.61 mg/dL (0.55-1.02); EST Glomerular Filtration Rate 101 mL/min (>60); Est Glom Filt Rate - Afr Amer 123 mL/min (>60); Estimated Creatinine Clearance 36.53 ml/min; Globulin 4.7 g/dL (2.2-4.2); Glucose 133 mg/dL (74-106); Potassium 3.8 mmol/L (3.5-5.1); Protein, Total 7.2 g/dL (6.4-8.2); Sodium Level 138 mmol/L (136-145)
--- NOTE | 2021-07-15 10:47 | NURSING ---
PTS O2 SAT DROPPED TO 85% ON 7L NC - HIGH FLOW - WHILE AMBULATING IN BR.
[2021-07-15] MEDS: dexAMETHasone 4 MG Tablet 6 MG PO (10:49)
[2021-07-15] MEDS: Enoxaparin 40 MG/0.4 ML Syringe SC ×2 (10:49→21:55)
[2021-07-15] MEDS: guaiFENesin/D-Methorphan TAB.SR.12H 1 TABLET PO ×2 (10:50→21:55)
--- NOTE | 2021-07-15 13:36 | CASEMGMT ---
JOSE GUADALUPE MONTES Assessment: Face to Face with pt for initial transition planning/care coordination assessment. JOSE GUADALUPE MONTES introduced self and role at [facility], pt voices understanding and consents to assessment. Pt is A/O x4 and answers all questions appropriately at this time. Pt sitting up in bed with O2 on in no distress. Care providers, pharmacy, and demographics verified/updated. Admitting Dx: COVID PNA PCP:[facility] Specialists: Pt has a massage therapist, accupuncturist and chiropractor. [facility]erred [facility] Insurance: PhyliciaJANINE Gutiérrez Prescription Benefit: yes LW/HPOA: Pt states she has a LW/DPOA and her DPOA is her son Ervin Rene. She is aware that it is not on file at [facility] and she may bring it in when she is better. LNOK: rEvin Rene, son Living Arrangements: Pt lives alone in a single story condo with no steps to enter. Pt reports being I in ADL's and denies concerns at home. Transportation: Pt drives self and denies concerns with transportation. DME/HHC/SNF: Pt has a cane and walker at home but does not use. Pt states she has had [facility] HHC in the past and has no hx of SNF stays. Pt states she was tested for COVID at the drive [place] area of 's office. Pt states she has family who can provide her with groceries and supplies. Pt provided with a verbal list of local in network DME companies. Pt chose [employer]. Pt states no concerns with going home at time of dc. Pt states no further concerns/needs. CM to follow. Advised pt to ask CM if any further question/concerns/needs arise, voices understanding. Pt Goal: Home Plan: Home
--- NOTE | 2021-07-15 16:07 | PN.HOSP_ITS ---
Subjective Subjective Patient on 6 L of oxygen. Mild dyspnea on exertion. Has cough Objective Data Objective Data Vital Signs: Vital Signs Temp Pulse Resp BP Pulse Ox 97.9 F 101 H 20 H 105/70 92 07/15/21 15:43 07/15/21 15:43 07/15/21 15:43 07/15/21 15:43 07/15/21 15:43 Oxygen Flow Rate (L/min) 7 Oxygen Delivery Method Nasal Cannula Weight: 241 lb 10.026 oz Body Mass Index (BMI) 47.5 Intake & Output: Intake and Output for Last 24 Hours 07/13/21 07/14/21 07/15/21 23:59 23:59 23:59 Intake Total 1919 / 1919 1050 / 1050 Balance 1919 / 1919 1050 / 1050 Lab / Micro Data Result Diagrams: 07/15/21 06:36 07/15/21 06:36 Labs: Laboratory Results - last 24 hr 07/15/21 06:36: WBC 8.3, RBC 4.36, Hgb 13.4, Hct 41.0, MCV 94.0, MCH 30.7, MCHC 32.7, RDW Std Deviation 45.0 H, RDW Coeff of Nicola 12.9, Plt Count 169, MPV 11.0, Immature Gran % (Auto) 0.600, Neut % (Auto) 81.1 H, Lymph % (Auto) 10.6 L, [place] % (Auto) 7.5, Eos % (Auto) 0.0, Baso % (Auto) 0.2, Absolute Neuts (auto) 6.7, Absolute Lymphs (auto) 0.88, Nucleated RBC % 0 07/15/21 06:36: Sodium 138, Potassium 3.8, Chloride 105, Carbon Dioxide 26.0, Anion Gap 7, BUN 25 H, Creatinine 0.61, Estim Creat Clear Calc 36.53, Est GFR (MDRD) Af Amer 123, Est GFR (MDRD) Non-Af 101, BUN/Creatinine Ratio 40.7 H, Glucose 133 H, Calcium 8.7, Total Bilirubin 0.30, AST 68 H, ALT 56, Alkaline Phosphatase 63, Total Protein 7.2, Albumin 2.5 L, Globulin 4.7 H, Albumin/Globulin Ratio 0.5 L Micro: Microbiology 07/14/21 06:25 Sputum, Expectorated/Coughed Gram Stain - Final 07/14/21 06:25 Sputum, Expectorated/Coughed Respiratory Culture - Preliminary Appears to be normal respiratory deny. Further studies to follow. 07/13/21 21:41 Nasal Secretion SARS-CoV-2 Antigen (Rapid) - Final SARS-CoV-2 (COVID 19) Physical Exam Narrative Physical exam. General: Alert, Oriented x3, Cooperative HEENT: Atraumatic, PERRLA, EOMI, Normocephalic Oral: No Gingival or Mucosal Lesions/ Ulcerations Neck: Supple, No JVD, Negative Carotid Bruits Lungs: Air entry diminished in bilateral lung bases. Mild bilateral fine crackles. Cardiovascular: Regular rate, Regular Rhythm, Normal S1, Normal S2, No murmurs Abdomen: Bowel Sounds Present, Soft, Non Tender, Non-Distended : No renal angle tenderness. No suprapubic tenderness. Extremities: No edema, Capillary Refill Less than 3 Seconds Skin: No rashes, No breakdown Musculoskeletal: No Tenderness to Palpation of Joints or Extremities Neurological: Cranial nerves II-XII grossly intact, DTR 2+/4 and Symmetrical, Neuro grossly intact Psych/Mental Status: Normal Affect, Appropriate. Assessment & Plan Assessment/Plan (1) Acute respiratory failure with hypoxia: (2) Pneumonia due to 2019-nCoV: PLAN: This is a 70-year-old female admitted with cough, shortness of breath on exertion nonspecific generalized symptoms of COVID-19 pneumonia. 1. Acute hypoxic respiratory failure secondary to COVID-19 pneumonia: Patient is started on remdesivir and Decadron and discontinued. CTA chest negative for PE as mentioned below. Incentive spirometry, Pep and Mucinex D. Monitor labs CBC CMP while patient on remdesivir. Blood cultures are negative. PT and OT evaluation. Sputum culture ordered. 07/15: Clinical update was given to patient's son Mr. Mueller. Labs reviewed with him. Currently patient saturation 92% on 7 L of oxygen. Incentive spirometry and Pep encouraged. 2. Mild acute viral hepatitis due to COVID-19: AST 68. VTE prophylaxis: Lovenox 40 mgl subcu twice daily. Discontinue if platelet count drops less than 50,000 or hemoglobin less than 8 g% Clinical Impression(s) from Imaging Studies Chest X-Ray 07/13/21 21:20 IMPRESSION: Perihilar and lower lobe reticular and alveolar opacities suspicious for pneumonia. Chest CTA 07/13/21 22:32 IMPRESSION: Findings suggest multifocal pneumonia. Normal CTA chest examination, without a demonstrated pulmonary embolism or arterial dissection. Electronically Signed: Adryan Meza MD at 0:18 EDT Tel , Service support , Charges/Coding Visit Charges Inpatient E&M: 40822 Subs Hosp L2
[2021-07-15] MEDS: 0.9% Saline Lock 10 ML Syringe IV (21:56)
[2021-07-16] VITALS (17 sets, daily range): BP systolic 123–147; BP diastolic 80–94; PULSE 74–120; RESP 18–22; TEMP 36.6–36.7; O2SAT 84–93
--- NOTE | 2021-07-16 00:06 | EKG12_ITS ---
Test Reason : IRREG HEART RATE Blood Pressure : / mmHG Vent. Rate : 103 BPM Atrial Rate : 097 BPM P-R Int : 000 ms QRS Dur : 082 ms QT Int : 310 ms P-R-T Axes : 000 -30 019 degrees QTc Int : 406 ms Atrial fibrillation Left axis deviation Nonspecific ST and T wave abnormality Abnormal ECG Confirmed by DC CAMPA, THANH ([id number]), mapping editor MARTIN CHOU ([id number]) on 07/17/2021 10:44:50 AM Referred By: JOSE Confirmed By:THANH IRWIN MD
--- NOTE | 2021-07-16 01:44 | PCM.PN.BLA ---
Progress Note Patient found to have atrial fibrillation. Reportedly no history of atrial fibrillation. Supplement potassium. Check magnesium. Check TSH. Discontinue prophylactic Lovenox and put on therapeutic dose of Lovenox.
[2021-07-16] MEDS: Potassium Chloride Oral Tablet 20 MEQ PO (02:22)
[2021-07-16 07:31] LABS: Absolute Lymphocyte Count 0.86 X10^3/uL (0.83-4.51); Absolute Neutrophil Count 5.2 X10^3/uL (2.0-7.7); Basophil# 0.02 X10^3/uL; Basophil% 0.3 % (0-1); Hematocrit 43.1 % (37-47); Hemoglobin 13.9 g/dL (12.0-15.0); Lymphocyte # 0.86 X10^3/ul (0.83-4.51); Lymphocyte % 12.9 % (19-41); Mean Corp Hgb Conc 32.3 g/dL (32-36); Mean Corpuscular Hgb 30.8 pg (27.0-32.0); Mean Corpuscular Volume 95.4 fL (81-99); Mean Platelet Vol. 10.6 fl (6.2-12.0); Monocyte# 0.61 X10^3/uL; Monocyte% 9.1 % (0-10); NRBC Flagged by Analyzer 0 % (0-5); Neutrophil # 5.15 X10^3/uL (2.7-7.7); POSITIVE MORPHOLOGY YES; Platelet Count 218 K/mm3 (150-450); RBC Distribution Width CV 13.2 % (11.6-14.6); RBC Distribution Width SD 47.2 fl (35.1-43.9); Red Blood Count 4.52 M/mm3 (4.2-5.4); White Blood Count 6.7 K/mm3 (4.4-11.0)
[2021-07-16 07:33] LABS: Differential Indicated SCAN CRITERIA MET
[2021-07-16] MEDS: Enoxaparin 120 MG/0.8 ML Syringe 110 MG SC ×2 (08:13→22:28)
[2021-07-16] MEDS: dexAMETHasone 4 MG Tablet 6 MG PO (08:14)
[2021-07-16] MEDS: guaiFENesin/D-Methorphan TAB.SR.12H 1 TABLET PO ×2 (08:14→22:27)
[2021-07-16 08:30] LABS: ALB/GLOB Ratio 0.5 RATIO (0.9-2.4); AST(SGOT) 51 U/L (15-37); Alanine Aminotransfer ALT/SGPT 54 U/L (13-56); Albumin, Serum 2.4 g/dL (3.2-5.0); Alkaline Phosphatase 64 U/L (45-117); Anion Gap 8 (5-15); BUN 21 mg/dL (7-18); BUN/Creat Ratio 35.9 RATIO (10-20); Calcium,Total 8.6 mg/dL (8.5-10.1); Chloride 108 mmol/L (98-107); Creatinine, Serum 0.58 mg/dL (0.55-1.02); EST Glomerular Filtration Rate 107 mL/min (>60); Est Glom Filt Rate - Afr Amer 130 mL/min (>60); Estimated Creatinine Clearance 36.53 ml/min; Globulin 4.8 g/dL (2.2-4.2); Glucose 123 mg/dL (74-106); Magnesium 2.2 mg/dL (1.6-2.6); Potassium 3.9 mmol/L (3.5-5.1); Protein, Total 7.2 g/dL (6.4-8.2); Sodium Level 143 mmol/L (136-145)
[2021-07-16 08:35] LABS: Reactive Lymphocyte 1+
--- NOTE | 2021-07-16 08:54 | NURSING ---
DR GARCIA HERE ON UNIT - MADE MD AWARE PT REQUIRING 9L HIGH FLOW O2 TO KEEP SATS 88-90%. ALSO, PT HAS BEEN TACHY. STATES CALL RT TO PLACE PT ON AIRVO.
--- NOTE | 2021-07-16 09:44 | CPS ---
turned flow all the way down, patient had difficulty tolerating it.
--- NOTE | 2021-07-16 11:02 | EKG12_ITS ---
Test Reason : Blood Pressure : / mmHG Vent. Rate : 117 BPM Atrial Rate : 068 BPM P-R Int : 000 ms QRS Dur : 068 ms QT Int : 360 ms P-R-T Axes : 000 -28 032 degrees QTc Int : 502 ms Atrial fibrillation Nonspecific ST and T wave abnormality Abnormal ECG Confirmed by DC CAMPA, THANH ([id number]), editor in chief newspaper MARTIN CHOU ([id number]) on 07/18/2021 10:15:45 AM Referred By: JOSE Confirmed By:THANH IRWIN MD
[2021-07-16] MEDS: dilTIAZem 30 MG Tablet PO ×2 (11:12→11:13)
--- NOTE | 2021-07-16 11:42 | NURSING ---
CALLED PT DAUGHTER IN LAW, TENZIN Ordoñez/RICHY
--- NOTE | 2021-07-16 12:46 | PN.HOSP_ITS ---
Subjective Subjective Overnight events noted. Patient went into A. fib with RVR. Patient does not have history of prior cardiac disease or atrial fibrillation. Potassium was supplemented. Prophylactic Lovenox was converted to therapeutic dose. Potassium magnesium and TSH level normal. I talked to the patient's [id number]. Objective Data Objective Data Vital Signs: Vital Signs Temp Pulse Resp BP Pulse Ox 97.9 F 120 H 20 H 123/84 H 87 07/16/21 08:05 07/16/21 10:00 07/16/21 08:05 07/16/21 08:05 07/16/21 08:19 Oxygen Flow Rate (L/min) 9 Oxygen Delivery Method Nasal Cannula Weight: 242 lb 11.663 oz Body Mass Index (BMI) 47.5 Intake & Output: Intake and Output for Last 24 Hours 07/14/21 07/15/21 07/16/21 23:59 23:59 23:59 Intake Total 1920 / 1920 2450 / 2750 1150 / 1150 Balance 1920 / 1920 2450 / 2750 1150 / 1150 Lab / Micro Data Result Diagrams: 07/16/21 07:00 07/16/21 06:50 Labs: Laboratory Results - last 24 hr 07/16/21 06:50: Sodium 143, Potassium 3.9, Chloride 108 H, Carbon Dioxide 27.0, Anion Gap 8, BUN 21 H, Creatinine 0.58, Estim Creat Clear Calc 36.53, Est GFR (MDRD) Af Amer 130, Est GFR (MDRD) Non-Af 107, BUN/Creatinine Ratio 35.9 H, Glucose 123 H, Calcium 8.6, Magnesium 2.2, Total Bilirubin 0.30, AST 51 H, ALT 54, Alkaline Phosphatase 64, Total Protein 7.2, Albumin 2.4 L, Globulin 4.8 H, Albumin/Globulin Ratio 0.5 L, TSH 1.20 07/16/21 07:00: WBC 6.7, RBC 4.52, Hgb 13.9, Hct 43.1, MCV 95.4, MCH 30.8, MCHC 32.3, RDW Std Deviation 47.2 H, RDW Coeff of Nicola 13.2, Plt Count 218, MPV 10.6, Immature Gran % (Auto) 0.700, Neut % (Auto) 77.0 H, Lymph % (Auto) 12.9 L, [place] % (Auto) 9.1, Eos % (Auto) 0.0, Baso % (Auto) 0.3, Absolute Neuts (auto) 5.2, Absolute Lymphs (auto) 0.86, Nucleated RBC % 0, Reactive Lymphocytes 1+ Micro: Microbiology 07/14/21 06:25 Sputum, Expectorated/Coughed Gram Stain - Final 07/14/21 06:25 Sputum, Expectorated/Coughed Respiratory Culture - Final 07/13/21 21:41 Nasal Secretion SARS-CoV-2 Antigen (Rapid) - Final SARS-CoV-2 (COVID 19) Physical Exam Narrative Physical exam. General: Alert, Oriented x3, Cooperative HEENT: Atraumatic, PERRLA, EOMI, Normocephalic Oral: No Gingival or Mucosal Lesions/ Ulcerations Neck: Supple, No JVD, Negative Carotid Bruits Lungs: Air entry diminished in bilateral lung bases. Mild bilateral fine crackles. No palpable crepitus. Cardiovascular: A. fib with RVR, Normal S1, Normal S2, No murmurs Abdomen: Bowel Sounds Present, Soft, Non Tender, Non-Distended : No renal angle tenderness. No suprapubic tenderness. Extremities: No edema, Capillary Refill Less than 3 Seconds Skin: No rashes, No breakdown Musculoskeletal: No Tenderness to Palpation of Joints or Extremities Neurological: Cranial nerves II-XII grossly intact, DTR 2+/4 and Symmetrical, Neuro grossly intact Psych/Mental Status: Normal Affect, Appropriate. Assessment & Plan Assessment/Plan (1) Acute respiratory failure with hypoxia: (2) Pneumonia due to 2019-nCoV: PLAN: This is a 70-year-old female admitted with cough, shortness of breath on exertion nonspecific generalized symptoms of COVID-19 pneumonia. 1. Acute hypoxic respiratory failure secondary to COVID-19 pneumonia: Patient is started on remdesivir and Decadron and discontinued. CTA chest negative for PE as mentioned below. Incentive spirometry, Pep and Mucinex D. Monitor labs CBC CMP while patient on remdesivir. Blood cultures are negative. PT and OT evaluation. Sputum culture ordered. 07/15: Clinical update was given to patient's son Mr. Mueller. Labs reviewed with him. Currently patient saturation 92% on 7 L of oxygen. Incentive spirometry and Pep encouraged. 07/16: Continue treatment. Patient's [id number], Dinah asked about Tocilizumab. I discussed with ID and usually this is indicated for someone who needs ICU level of care, on BiPAP variable therefore she meets the criteria. We further talked about Baricitinib which is JAK2 inhibitor, nonformulary given for similar indication. He asked to see how senior c software developer feels about it. A. fib with RVR, new onset: Started on Cardizem 60 mg every 6 hourly. Patient on therapeutic dose of Lovenox. No prior history of cardiac or lung disease. May be precipitated by pneumonia/COVID-19 or pulmonary cause. 2. Mild acute viral hepatitis due to COVID-19: AST 68. VTE prophylaxis: Lovenox 40 mgl subcu twice daily. Discontinue if platelet count drops less than 50,000 or hemoglobin less than 8 g% Total time of the visit including total time spent in counseling or coordination of care, (more than 50% of the total time, spent in obtaining medical information from nurses and other ancillary care providers,explaining to the patient about labs, imaging, diagnosis and management), discussion with architectural practice manager/senior c software developer, ID and patient's [id number], review of labs and imaging is 30 minutes. Clinical Impression(s) from Imaging Studies Chest X-Ray 07/13/21 21:20 IMPRESSION: Perihilar and lower lobe reticular and alveolar opacities suspicious for pneumonia. Chest CTA 07/13/21 22:32 IMPRESSION: Findings suggest multifocal pneumonia. Normal CTA chest examination, without a demonstrated pulmonary embolism or arterial dissection. Electronically Signed: Adryan Meza MD at 0:18 EDT Tel , Service support , Charges/Coding Visit Charges Inpatient E&M: 19738 Subs Hosp L3
--- NOTE | 2021-07-16 14:15 | NURSING ---
CALLED TO PT ROOM BY SUPERVISOR OF WAY STATING PT FEELS LIKE SHE IS GOING TO PASS OUT, O2 SATS DROPPED INTO 70'S WHEN UP. SUPERVISOR OF WAY ASSISTED PT INTO CHAIR @ BS & PT O2 SAT RECOVERED FAIRLY QUICKLY. O2 SAT 92% ON AIRVO 40L O2.
--- NOTE | 2021-07-16 16:35 | EX.PCM.CONCC ---
Assessment & Plan Assessment/Plan (1) Acute respiratory failure with hypoxia: (2) Pneumonia due to 2019-nCoV: (3) Generalized weakness: PLAN: RECOMMENDATIONS: 1. Consider DELFINA therapy. Defer to ID 2. Continue with Decadron therapy 3. Attempt mild diuresis as tolerated 4. BiPAP rescue if necessary 5. Consider cardiology consult for A. fib with RVR IMPRESSIONS: 1. Acute hypoxic respiratory failure secondary to COVID-19 pneumonia Patient with significant worsening in hypoxia over the course of the hospitalization. This could be exacerbated by A. fib with RVR, but COVID-19 is suspected as the major etiology. Will attempt to diuresis patient tolerates. Patient is on Remdesivir and Decadron therapy. Patient appears to be tolerating these well. Patient would be a marginal candidate for DELFINA therapy given that symptom onset was approximately 10 days ago. Would defer to ID. Patient's liver function would not preclude therapy in my opinion. 2. New onset A. fib with RVR Patient likely has an element of diastolic dysfunction given age. This would be exacerbated by A. fib with RVR. Patient should have an echocardiogram for quantification clarification of heart function. 3. Advanced age/poor primary care/poor insight Complicates care, management, recovery and prognosis. Patient may have other diagnoses that have not been made secondary to poor follow-up with PCP. Blood sugars are only mildly elevated on Decadron therapy. HPI Consult Data Date of Consult: 07/16/21 HPI Narrative HPI Narrative: CHRIS CURRAN is a 70 F, with no reported past medical history, who presented to [facility] on 07/13/2021 secondary to progressive shortness of breath. Patient did have an outpatient Covid test that was positive on the day prior to presentation. Patient had reported 7 days of cough, fever, chills, fatigue and change in taste. Patient had been referred for monoclonal antibody, but was found to be hypoxic at home. Patient reportedly lives alone and has been feeling weak for a couple of days. In the ER, patient was afebrile, normotensive and not tachycardic. Patient was requiring 3 L nasal cannula to maintain saturations. Laboratory work-up showed a relatively normal CBC except for decreased platelets at 132. Patient did have an elevated creatinine of 1.11. CMP was within normal limits, along with lactate. D-dimer was elevated at 2.85, so patient had a CTA of the chest showing multifocal pneumonia with groundglass opacities and no pulmonary embolism. Patient was admitted to the floor and initiated on Remdesivir and Decadron. Patient also received Mucinex and Lovenox prophylaxis. Patient's oxygenation has continued to worsen over the course of the hospitalization. Patient is currently requiring Airvo to maintain saturations, so a pulmonary consult was obtained. Patient denies any history of respiratory complaints. Patient is not a smoker. Patient states she has no past medical history, but readily admits that she does not follow-up with the PCP like she should. Patient states last time she saw her PCP was approximately 2-1/2 years ago. Patient states that she is very adamant that she should not use medications unless they are absolutely necessary. Patient does use multiple herbal and vitamin supplements. Patient also has acupuncture and massage therapy on a monthly basis. Review of systems otherwise negative from a constitutional, HEENT, respiratory, cardiovascular, GI, genitourinary, musculoskeletal, skin, neurologic, psychiatric and hematologic system unless stated above. [facility] Medical History Non-smoker Varicose veins of bilateral lower extremities with other complications Home Medications NK 07/12/21 [History Last Taken Unknown] Allergy/AdvReac Type Severity Reaction Status Date / Time metal Allergy Rash Uncoded 07/13/21 18:48 Family History (Updated 07/14/21 @ 02:[address] Jesus Manuel Carty MD) Other Diabetes Surgical History History of bilateral knee replacement Social History household members: none Smoking Status: Never smoker alcohol intake: current alcohol intake frequency: other substance use type: does not use ROS ROS Narrative See HPI Physical Exam Const alert, oriented x3 and no apparent distress General Appearance: cooperative HEENT normocephalic and moist oral mucous membranes Eyes PERRL, EOMs intact bilaterally and conjunctivae normal Neck supple and no JVD Chest inspection of chest normal Chest: symmetrical chest wall rise; Negative for crepitus Resp no retractions and no use of accessory muscles Auscultation: diminished lung sounds; Negative for rales, rhonchi or wheezes Cardio regular rate, regular rhythm, S1 normal heart sound, S2 normal heart sound and no murmurs GI soft to palpation, non-tender and non-distended; Negative for hepatosplenomegaly Extremity General Extremity: edema bilateral lower extremity Details: mild; Negative for clubbing or cyanosis Skin no rashes or lesions noted Neuro no focal motor deficits and no sensory deficits noted Psych affect normal Appearance: appropriate Lab / Micro Data Result Diagrams: 07/16/21 07:00 07/16/21 06:50 Labs: Laboratory Results - last 24 hr 07/16/21 06:50: Sodium 143, Potassium 3.9, Chloride 108 H, Carbon Dioxide 27.0, Anion Gap 8, BUN 21 H, Creatinine 0.58, Estim Creat Clear Calc 36.53, Est GFR (MDRD) Af Amer 130, Est GFR (MDRD) Non-Af 107, BUN/Creatinine Ratio 35.9 H, Glucose 123 H, Calcium 8.6, Magnesium 2.2, Total Bilirubin 0.30, AST 51 H, ALT 54, Alkaline Phosphatase 64, Total Protein 7.2, Albumin 2.4 L, Globulin 4.8 H, Albumin/Globulin Ratio 0.5 L, TSH 1.20 07/16/21 07:00: WBC 6.7, RBC 4.52, Hgb 13.9, Hct 43.1, MCV 95.4, MCH 30.8, MCHC 32.3, RDW Std Deviation 47.2 H, RDW Coeff of Nicola 13.2, Plt Count 218, MPV 10.6, Immature Gran % (Auto) 0.700, Neut % (Auto) 77.0 H, Lymph % (Auto) 12.9 L, [place] % (Auto) 9.1, Eos % (Auto) 0.0, Baso % (Auto) 0.3, Absolute Neuts (auto) 5.2, Absolute Lymphs (auto) 0.86, Nucleated RBC % 0, Reactive Lymphocytes 1+ Micro: Microbiology 07/13/21 21:57 Blood Culture (Wb) - Left Hand Blood Culture - Preliminary No growth in 48 hours. 07/13/21 21:41 Blood Culture (Wb) - Anticubital Left Blood Culture - Preliminary No growth in 48 hours. 07/14/21 06:25 Sputum, Expectorated/Coughed Gram Stain - Final 07/14/21 06:25 Sputum, Expectorated/Coughed Respiratory Culture - Final Charges/Coding Visit Charges Inpatient E&M: 10948 Init Hosp L3
[2021-07-16] MEDS: dilTIAZem 60 MG Tablet PO ×2 (17:58→22:51)
[2021-07-16] MEDS: 0.9% Saline Lock 10 ML Syringe IV (22:30)
[2021-07-17] VITALS (20 sets, daily range): BP systolic 109–137; BP diastolic 69–97; PULSE 72–99; RESP 16–63; TEMP 36.1–36.9; O2SAT 89–95
[2021-07-17] MEDS: dilTIAZem 60 MG Tablet PO ×3 (05:16→17:48)
[2021-07-17 06:16] LABS: Absolute Lymphocyte Count 0.96 X10^3/uL (0.83-4.51); Basophil# 0.04 X10^3/uL; Basophil% 0.6 % (0-1); Hematocrit 43.4 % (37-47); Lymphocyte # 0.96 X10^3/ul (0.83-4.51); Lymphocyte % 14.3 % (19-41); Mean Corp Hgb Conc 32.3 g/dL (32-36); Mean Corpuscular Hgb 30.4 pg (27.0-32.0); Mean Corpuscular Volume 94.1 fL (81-99); Mean Platelet Vol. 10.3 fl (6.2-12.0); Monocyte# 0.58 X10^3/uL; Monocyte% 8.7 % (0-10); NRBC Flagged by Analyzer 0 % (0-5); Neutrophil # 5.02 X10^3/uL (2.7-7.7); Neutrophil % 75.1 % (47-70); POSITIVE MORPHOLOGY YES; Platelet Count 241 K/mm3 (150-450); RBC Distribution Width CV 13.1 % (11.6-14.6); RBC Distribution Width SD 45.2 fl (35.1-43.9); Red Blood Count 4.61 M/mm3 (4.2-5.4); White Blood Count 6.7 K/mm3 (4.4-11.0)
[2021-07-17 06:21] LABS: Differential Indicated SCAN CRITERIA MET
[2021-07-17 06:41] LABS: ALB/GLOB Ratio 0.5 RATIO (0.9-2.4); AST(SGOT) 54 U/L (15-37); Alanine Aminotransfer ALT/SGPT 61 U/L (13-56); Albumin, Serum 2.4 g/dL (3.2-5.0); Alkaline Phosphatase 68 U/L (45-117); Anion Gap 7 (5-15); BUN 22 mg/dL (7-18); BUN/Creat Ratio 51.2 RATIO (10-20); Calcium,Total 8.5 mg/dL (8.5-10.1); Chloride 106 mmol/L (98-107); Creatinine, Serum 0.43 mg/dL (0.55-1.02); EST Glomerular Filtration Rate 153 mL/min (>60); Est Glom Filt Rate - Afr Amer 185 mL/min (>60); Estimated Creatinine Clearance 36.53 ml/min; Globulin 4.7 g/dL (2.2-4.2); Glucose 132 mg/dL (74-106); Potassium 3.7 mmol/L (3.5-5.1); Protein, Total 7.1 g/dL (6.4-8.2); Sodium Level 139 mmol/L (136-145)
[2021-07-17 06:47] LABS: Differential Comment SCANNED
--- NOTE | 2021-07-17 08:25 | ECHOD_ITS ---
Reason For Study: New onset Afib Procedure This was a 2D Doppler, Color Flow transthoracic echocardiogram. Technically difficult study due to patients body habitus.. Echo done with patient sitting in the chair. Exam performed portable in patient room. The exam was abbreviated due to the COVID 19 protocol. Left Ventricle Normal LV size. Left ventricular systolic function is normal. The estimated ejection fraction is 55 %. No regional wall motion abnormalities noted. Right Ventricle Normal RV size. Normal systolic function. Atria Normal left atrium. Normal right atrium. Mitral Valve Normal mitral valve. Aortic Valve Trisinus/trileaflet aortic valve. Pulmonic Valve Normal pulmonic valve. Great Vessels Normal aortic root. Pericardium/Pleural Small pericardial effusion. There are no echocardiographic indications of cardiac tamponade. MMode/2D Measurements & Calculations LVIDd: 4.4 cm IVSd: 1.1 cm LA dimension: 4.3 cm LVIDs: 2.8 cm LVPWd: 1.2 cm FS: 36.0 % ECHO/Echo Complete Interpretation Summary Normal LV size. Left ventricular systolic function is normal. The estimated ejection fraction is 55 %. Small pericardial effusion. There are no echocardiographic indications of cardiac tamponade. Ordering Physician: Elio Vera Referring Physician: Cecelia Denny D.O. Performed By: Mat Vicente RCS
--- NOTE | 2021-07-17 10:01 | PCM.PN.INT ---
Assessment & Plan Assessment/Plan (1) Acute respiratory failure with hypoxia: (2) Pneumonia due to 2019-nCoV: (3) Generalized weakness: PLAN: RECOMMENDATIONS: 1. Consider DELFINA therapy. Defer to ID 2. Continue with Decadron therapy 3. Continue diuresis as tolerated 4. BiPAP rescue if necessary 5. Consider cardiology consult for new onset A. fib with RVR IMPRESSIONS: 1. Acute hypoxic respiratory failure secondary to COVID-19 pneumonia Patient with significant worsening in hypoxia over the course of the hospitalization. This could be exacerbated by A. fib with RVR, but COVID-19 is suspected as the major etiology. Will attempt to diuresis patient tolerates. Potassium supplementation has been ordered. Patient is on Remdesivir and Decadron therapy. Patient appears to be tolerating these well. Patient would be a marginal candidate for DELFINA therapy given that symptom onset was approximately 10 days ago. Would defer to ID. Patient's liver function would not preclude therapy in my opinion. 2. New onset A. fib with RVR Patient likely has an element of diastolic dysfunction given age. Rate is controlled at this time. This would be exacerbated by A. fib with RVR. Patient should have an echocardiogram for quantification clarification of heart function. 3. Advanced age/poor primary care/poor insight Complicates care, management, recovery and prognosis. Patient may have other diagnoses that have not been made secondary to poor follow-up with PCP. Blood sugars are only mildly elevated on Decadron therapy. Subjective Subjective Patient did okay overnight. No significant change in overall condition was reported by the patient. She continues to report a cough, but feels this is slightly improved. Patient still having significant dyspnea on exertion. Objective Data Objective Data Vital Signs: Vital Signs Temp Pulse Resp BP Pulse Ox 36.7 C 86 24 H 109/70 90 07/17/21 08:19 07/17/21 08:30 07/17/21 08:30 07/17/21 08:19 07/17/21 08:30 Oxygen Flow Rate (L/min) 40 Oxygen Delivery Method Airvo Weight: 110.1 kg Body Mass Index (BMI) 47.5 Intake & Output: Intake and Output for Last 24 Hours 07/15/21 07/16/21 07/17/21 23:59 23:59 23:59 Intake Total 2450 / 2750 1570 / 1570 250 / 250 Balance 2450 / 2750 1570 / 1570 250 / 250 Lab / Micro Data Result Diagrams: 07/17/21 06:10 07/17/21 06:10 Labs: Laboratory Results - last 24 hr 07/17/21 06:10: WBC 6.7, RBC 4.61, Hgb 14.0, Hct 43.4, MCV 94.1, MCH 30.4, MCHC 32.3, RDW Std Deviation 45.2 H, RDW Coeff of Nicola 13.1, Plt Count 241, MPV 10.3, Immature Gran % (Auto) 1.300 H, Neut % (Auto) 75.1 H, Lymph % (Auto) 14.3 L, [place] % (Auto) 8.7, Eos % (Auto) 0.0, Baso % (Auto) 0.6, Absolute Neuts (auto) 5.0, Absolute Lymphs (auto) 0.96, Nucleated RBC % 0, Differential Comment SCANNED 07/17/21 06:10: Sodium 139, Potassium 3.7, Chloride 106, Carbon Dioxide 26.0, Anion Gap 7, BUN 22 H, Creatinine 0.43 L, Estim Creat Clear Calc 36.53, Est GFR (MDRD) Af Amer 185, Est GFR (MDRD) Non-Af 153, BUN/Creatinine Ratio 51.2 H, Glucose 132 H, Calcium 8.5, Total Bilirubin 0.40, AST 54 H, ALT 61 H, Alkaline Phosphatase 68, Total Protein 7.1, Albumin 2.4 L, Globulin 4.7 H, Albumin/Globulin Ratio 0.5 L Micro: Microbiology 07/13/21 21:57 Blood Culture (Wb) - Left Hand Blood Culture - Preliminary No growth in 48 hours. 07/13/21 21:41 Blood Culture (Wb) - Anticubital Left Blood Culture - Preliminary No growth in 48 hours. 07/14/21 06:25 Sputum, Expectorated/Coughed Gram Stain - Final 07/14/21 06:25 Sputum, Expectorated/Coughed Respiratory Culture - Final 07/13/21 21:41 Nasal Secretion SARS-CoV-2 Antigen (Rapid) - Final SARS-CoV-2 (COVID 19) Physical Exam Const alert and oriented x3 Constitutional Narrative: On Airvo General Appearance: anxious HEENT normocephalic Eyes PERRL, EOMs intact bilaterally, conjunctivae normal and no scleral icterus Chest inspection of chest normal Chest: symmetrical chest wall rise; Negative for crepitus Resp no retractions and no use of accessory muscles Auscultation: diminished lung sounds; Negative for rales, rhonchi or wheezes Cardio regular rate, S1 normal heart sound, S2 normal heart sound, no murmurs, no rub and no gallops Rhythm: abnormal rhythm irregularly irregular GI normal to inspection, nondistended, normoactive bowel sounds Inspection: central obesity Extremity General Extremity: edema bilateral lower extremity Details: mild; Negative for clubbing or cyanosis Skin no rashes or lesions noted Neuro oriented x3, CN's II-XII intact bilaterally, moves all extremities and no focal motor deficits Psych mental status grossly normal and thought process normal Charges/Coding Visit Charges Inpatient E&M: 27039 Subs Hosp L3
[2021-07-17] MEDS: guaiFENesin/D-Methorphan TAB.SR.12H 1 TABLET PO ×2 (10:03→22:10)
[2021-07-17] MEDS: dexAMETHasone 4 MG Tablet 6 MG PO (10:03)
[2021-07-17] MEDS: Furosemide 40 MG/4 ML Vial IV (10:03)
[2021-07-17] MEDS: Enoxaparin 120 MG/0.8 ML Syringe 110 MG SC ×2 (10:03→22:11)
[2021-07-17] MEDS: 0.9% Saline Lock 10 ML Syringe IV ×2 (10:04→22:06)
--- NOTE | 2021-07-17 13:28 | PN.HOSP_ITS ---
Subjective Subjective Patient heart rate is controlled in the 80S. In A. fib. On therapeutic coagulation patient does not have chest pain/palpitation or dizziness. Short of breath. Patient wanted me to call his son but I said we have been talking to his [id number] as per her statement yesterday and will maintain 1 person for communication to avoid misunderstanding. Objective Data Objective Data Vital Signs: Vital Signs Temp Pulse Resp BP Pulse Ox 97.0 F L 82 18 137/69 H 94 07/17/21 10:13 07/17/21 11:00 07/17/21 10:13 07/17/21 10:13 07/17/21 10:13 Oxygen Flow Rate (L/min) 40 Oxygen Delivery Method Airvo Weight: 242 lb 11.663 oz Body Mass Index (BMI) 47.5 Intake & Output: Intake and Output for Last 24 Hours 07/15/21 07/16/21 07/17/21 23:59 23:59 23:59 Intake Total 2450 / 2750 1570 / 1570 800 / 800 Output Total 1000 / 1000 Balance 2450 / 2750 1570 / 1570 -200 / -200 Lab / Micro Data Result Diagrams: 07/17/21 06:10 07/17/21 06:10 Labs: Laboratory Results - last 24 hr 07/17/21 06:10: WBC 6.7, RBC 4.61, Hgb 14.0, Hct 43.4, MCV 94.1, MCH 30.4, MCHC 32.3, RDW Std Deviation 45.2 H, RDW Coeff of Nicola 13.1, Plt Count 241, MPV 10.3, Immature Gran % (Auto) 1.300 H, Neut % (Auto) 75.1 H, Lymph % (Auto) 14.3 L, [place] % (Auto) 8.7, Eos % (Auto) 0.0, Baso % (Auto) 0.6, Absolute Neuts (auto) 5.0, Absolute Lymphs (auto) 0.96, Nucleated RBC % 0, Differential Comment SCANNED 07/17/21 06:10: Sodium 139, Potassium 3.7, Chloride 106, Carbon Dioxide 26.0, Anion Gap 7, BUN 22 H, Creatinine 0.43 L, Estim Creat Clear Calc 36.53, Est GFR (MDRD) Af Amer 185, Est GFR (MDRD) Non-Af 153, BUN/Creatinine Ratio 51.2 H, Glucose 132 H, Calcium 8.5, Total Bilirubin 0.40, AST 54 H, ALT 61 H, Alkaline Phosphatase 68, Total Protein 7.1, Albumin 2.4 L, Globulin 4.7 H, Albumin/Globulin Ratio 0.5 L Micro: Microbiology 07/13/21 21:57 Blood Culture (Wb) - Left Hand Blood Culture - Preliminary No growth in 48 hours. 07/13/21 21:41 Blood Culture (Wb) - Anticubital Left Blood Culture - Preliminary No growth in 48 hours. 07/14/21 06:25 Sputum, Expectorated/Coughed Gram Stain - Final 07/14/21 06:25 Sputum, Expectorated/Coughed Respiratory Culture - Final 07/13/21 21:41 Nasal Secretion SARS-CoV-2 Antigen (Rapid) - Final SARS-CoV-2 (COVID 19) Physical Exam Narrative Physical exam. General: Alert, Oriented x3, Cooperative HEENT: Atraumatic, PERRLA, EOMI, Normocephalic Oral: No Gingival or Mucosal Lesions/ Ulcerations Neck: Supple, No JVD, Negative Carotid Bruits Lungs: Air entry diminished in bilateral lung bases. Mild bilateral fine crackles. Dyspnea on exertion. No palpable crepitus. Cardiovascular: A. fib, heart rate controlled. Normal S1, Normal S2, No murmurs Abdomen: Bowel Sounds Present, Soft, Non Tender, Non-Distended : No renal angle tenderness. No suprapubic tenderness. Extremities: No edema, Capillary Refill Less than 3 Seconds Skin: No rashes, No breakdown Musculoskeletal: No Tenderness to Palpation of Joints or Extremities Neurological: Cranial nerves II-XII grossly intact, DTR 2+/4 and Symmetrical, Neuro grossly intact Psych/Mental Status: Normal Affect, Appropriate. Assessment & Plan Assessment/Plan (1) Acute respiratory failure with hypoxia: (2) Pneumonia due to 2019-nCoV: PLAN: This is a 70-year-old female admitted with cough, shortness of breath on exertion nonspecific generalized symptoms of COVID-19 pneumonia. 1. Acute hypoxic respiratory failure secondary to COVID-19 pneumonia: Patient is started on remdesivir and Decadron and discontinued. CTA chest negative for PE as mentioned below. Incentive spirometry, Pep and Mucinex D. Monitor labs CBC CMP while patient on remdesivir. Blood cultures are negative. PT and OT evaluation. Sputum culture ordered. 07/15: Clinical update was given to patient's son Mr. Mueller. Labs reviewed with him. Currently patient saturation 92% on 7 L of oxygen. Incentive spirometry and Pep encouraged. 07/16: Continue treatment. Patient's [id number], Dinah asked about Tocilizumab. I discussed with ID and usually this is indicated for someone who needs ICU level of care, on BiPAP variable therefore she meets the criteria. We further talked about Baricitinib which is JAK2 inhibitor, nonformulary given for similar indication. He asked to see how business operations coordinator feels about it. 07/17: Discussed with the business operations coordinator and consult appreciated. He deferred Baricitinib negative to ID. Will maintain communication to patient's [id number], Dinah as I talked to her yesterday. A. fib with RVR, new onset: Started on Cardizem 60 mg every 6 hourly. Patient on therapeutic dose of Lovenox. No prior history of cardiac or lung disease. May be precipitated by pneumonia/COVID-19 or pulmonary cause. 07/17: 2D echo is ordered. Heart rate is controlled. Patient asymptomatic from A. fib. 2. Mild acute viral hepatitis due to COVID-19: AST 68. VTE prophylaxis: Lovenox 40 mgl subcu twice daily. Discontinue if platelet count drops less than 50,000 or hemoglobin less than 8 g% Total time of the visit including total time spent in counseling or coordination of care, (more than 50% of the total time, spent in obtaining medical information from nurses and other ancillary care providers,explaining to the patient about labs, imaging, diagnosis and management), discussion with taper printed circuit layout/business operations coordinator, ID and patient's [id number], review of labs and imaging is 30 minutes. Clinical Impression(s) from Imaging Studies Chest X-Ray 07/13/21 21:20 IMPRESSION: Perihilar and lower lobe reticular and alveolar opacities suspicious for pneumonia. Chest CTA 07/13/21 22:32 IMPRESSION: Findings suggest multifocal pneumonia. Normal CTA chest examination, without a demonstrated pulmonary embolism or arterial dissection. Charges/Coding Visit Charges Inpatient E&M: 33772 Subs Hosp L2
[2021-07-17] MEDS: Potassium Chloride Oral Tablet 20 MEQ PO (17:48)
--- NOTE | 2021-07-17 19:59 | CON.PCM.ID_ITS ---
Assessment & Plan Assessment/Plan (1) Acute respiratory failure with hypoxia: (2) Pneumonia due to 2019-nCoV: PLAN: Sx started 07/07. Unvaccinated. On dex, remdesivir. Worsening resp failure, now on airvo. Reviewed EUA and risks/benefits, she agrees to start baricitinib. D/w pharmacy who will start now. Quarantine for 20 days until 07/27, after that recommend covid vaccine. Will follow, thank you, d/w Dr. Basurto HPI Consult Data Date of Consult: 07/17/21 HPI Narrative HPI Narrative: CHRIS CURRAN, is a 70 F who presented 07/14 with sx starting around 07/07 with n/v/d, headache, aches, change in taste, cough, not feeling well. Unvaccinated. Had progressive dyspnea, came to ED. Lives alone. Children are all vaccinated. Admitted on dex and remdesivir, 07/16 with worsening O2, put on airvo. Feeling frustrated and anxious, has never had to take medicine before, concerned about side effects. Goes to acupuncture, massage therapy, and chiropracter regularly. Full ROS performed and neg except as noted above. [facility] Medical History Non-smoker Varicose veins of bilateral lower extremities with other complications Home Medications NK 07/12/21 [History Last Taken Unknown] Allergy/AdvReac Type Severity Reaction Status Date / Time metal Allergy Rash Uncoded 07/13/21 18:48 Family History (Updated 07/14/21 @ 02:[address] Jesus Manuel Carty MD) Other Diabetes Surgical History History of bilateral knee replacement Social History household members: none Smoking Status: Never smoker alcohol intake: current alcohol intake frequency: other substance use type: does not use Physical Exam Const alert and oriented x3 General Appearance: cooperative Exam Limitations: no limitations HEENT normocephalic and head/scalp atraumatic Eyes PERRL and EOMs intact bilaterally Neck supple and No nodes Resp Auscultation: diminished lung sounds Cardio regular rate and regular rhythm GI normal to inspection, nondistended, normoactive bowel sounds Extremity no clubbing, cyanosis or edema Skin no rashes or lesions noted Neuro CN's II-XII intact bilaterally Lab / Micro Data Result Diagrams: 07/17/21 06:10 07/17/21 06:10 Labs: Laboratory Results - last 24 hr 07/17/21 06:10: WBC 6.7, RBC 4.61, Hgb 14.0, Hct 43.4, MCV 94.1, MCH 30.4, MCHC 32.3, RDW Std Deviation 45.2 H, RDW Coeff of Nicola 13.1, Plt Count 241, MPV 10.3, Immature Gran % (Auto) 1.300 H, Neut % (Auto) 75.1 H, Lymph % (Auto) 14.3 L, [place] % (Auto) 8.7, Eos % (Auto) 0.0, Baso % (Auto) 0.6, Absolute Neuts (auto) 5.0, Absolute Lymphs (auto) 0.96, Nucleated RBC % 0, Differential Comment SCANNED 07/17/21 06:10: Sodium 139, Potassium 3.7, Chloride 106, Carbon Dioxide 26.0, Anion Gap 7, BUN 22 H, Creatinine 0.43 L, Estim Creat Clear Calc 36.53, Est GFR (MDRD) Af Amer 185, Est GFR (MDRD) Non-Af 153, BUN/Creatinine Ratio 51.2 H, Glucose 132 H, Calcium 8.5, Total Bilirubin 0.40, AST 54 H, ALT 61 H, Alkaline Phosphatase 68, Total Protein 7.1, Albumin 2.4 L, Globulin 4.7 H, Albumin/Globulin Ratio 0.5 L Radiology Impression Echocardiogram 07/17/21 08:25 Interpretation Summary Normal LV size. Left ventricular systolic function is normal. The estimated ejection fraction is 55 %. Small pericardial effusion. There are no echocardiographic indications of cardiac tamponade. _ Ordering Physician: Elio Vera Referring Physician: Cecelia Denny D.O. Performed By: Mat Vicente RCS
[2021-07-18] VITALS (17 sets, daily range): BP systolic 94–130; BP diastolic 64–90; PULSE 64–91; RESP 18–26; TEMP 36.2–36.8; O2SAT 83–93
[2021-07-18] MEDS: dilTIAZem 60 MG Tablet PO ×4 (00:11→17:40)
[2021-07-18] MEDS: Sodium Chloride 0.65% 1 SPRAY SPRAY.BTL 2 SPRAY NASAL (05:51)
[2021-07-18 06:36] LABS: Absolute Lymphocyte Count 0.99 X10^3/uL (0.83-4.51); Absolute Neutrophil Count 4.4 X10^3/uL (2.0-7.7); Basophil# 0.06 X10^3/uL; Eosinophil# 0.03 X10^3/uL; Eosinophils% 0.5 % (0-5); Hematocrit 42.7 % (37-47); Hemoglobin 14.2 g/dL (12.0-15.0); Lymphocyte # 0.99 X10^3/ul (0.83-4.51); Lymphocyte % 16.1 % (19-41); Mean Corp Hgb Conc 33.3 g/dL (32-36); Mean Corpuscular Hgb 30.7 pg (27.0-32.0); Mean Corpuscular Volume 92.4 fL (81-99); Mean Platelet Vol. 10.3 fl (6.2-12.0); Monocyte% 8.1 % (0-10); NRBC Flagged by Analyzer 0 % (0-5); Neutrophil % 71.5 % (47-70); POSITIVE MORPHOLOGY YES; Platelet Count 299 K/mm3 (150-450); RBC Distribution Width SD 43.8 fl (35.1-43.9); Red Blood Count 4.62 M/mm3 (4.2-5.4); White Blood Count 6.2 K/mm3 (4.4-11.0)
[2021-07-18 06:47] LABS: Differential Indicated SCAN CRITERIA MET
[2021-07-18 07:01] LABS: ALB/GLOB Ratio 0.5 RATIO (0.9-2.4); AST(SGOT) 33 U/L (15-37); Alanine Aminotransfer ALT/SGPT 59 U/L (13-56); Albumin, Serum 2.3 g/dL (3.2-5.0); Alkaline Phosphatase 74 U/L (45-117); Anion Gap 7 (5-15); BUN 23 mg/dL (7-18); BUN/Creat Ratio 40.6 RATIO (10-20); Calcium,Total 8.6 mg/dL (8.5-10.1); Chloride 103 mmol/L (98-107); Creatinine, Serum 0.57 mg/dL (0.55-1.02); EST Glomerular Filtration Rate 111 mL/min (>60); Est Glom Filt Rate - Afr Amer 135 mL/min (>60); Estimated Creatinine Clearance 35.99 ml/min; Globulin 4.7 g/dL (2.2-4.2); Glucose 147 mg/dL (74-106); Potassium 3.8 mmol/L (3.5-5.1); Sodium Level 138 mmol/L (136-145)
[2021-07-18 07:14] LABS: Differential Comment SCANNED
[2021-07-18] MEDS: Potassium Chloride Oral Tablet 20 MEQ PO (08:05)
[2021-07-18] MEDS: Enoxaparin 120 MG/0.8 ML Syringe 110 MG SC ×2 (08:06→22:11)
[2021-07-18] MEDS: dexAMETHasone 4 MG Tablet 6 MG PO (08:06)
[2021-07-18] MEDS: guaiFENesin/D-Methorphan TAB.SR.12H 1 TABLET PO ×2 (08:07→22:11)
--- NOTE | 2021-07-18 08:14 | NURSING ---
pt did 2 incentive spirometry and pox dropped to 87% with slow recovery. teaching given to not do again till alarm goes away for a bit.
[2021-07-18] MEDS: QUEtiapine 25 MG Tablet PO ×2 (10:31→22:11)
--- NOTE | 2021-07-18 10:35 | PN.CC_ITS ---
Assessment & Plan Assessment/Plan (1) Acute respiratory failure with hypoxia: (2) Pneumonia due to 2019-nCoV: (3) Generalized weakness: PLAN: RECOMMENDATIONS: 1. DELFINA therapy per ID. Monitor liver function daily 2. Continue with Decadron therapy 3. Continue diuresis as tolerated 4. BiPAP rescue if necessary 5. Add Seroquel IMPRESSIONS: 1. Acute hypoxic respiratory failure secondary to COVID-19 pneumonia Patient with significant worsening in hypoxia over the course of the hospitalization. This could be exacerbated by A. fib with RVR, but COVID-19 is suspected as the major etiology. Will attempt to diuresis patient tolerates. Potassium supplementation has been ordered. Patient is on Remdesivir and Decadron therapy. Patient appears to be tolerating these well. Patient on DELFINA therapy per ID. Patient's liver function would not preclude therapy in my opinion. Unclear if anxiety is complicating pulmonary mechanics. Patient was open to initiation of Seroquel therapy 2. New onset A. fib with RVR Patient likely has an element of diastolic dysfunction given age. Rate is controlled at this time. This would be exacerbated by A. fib with RVR. Echocardiogram was relatively unremarkable except for a small pericardial effusion with no signs of tamponade. 3. Advanced age/poor primary care/poor insight Complicates care, management, recovery and prognosis. Patient may have other diagnoses that have not been made secondary to poor follow-up with PCP. Blood sugars are only mildly elevated on Decadron therapy. However, blood sugars are trending up and glargine may be necessary. Subjective Subjective Patient did okay overnight. Patient subjectively feels unchanged compared to previous. Patient does report that she is anxious and not used to being limited like this. Patient has not needed medications previously for anxiety. Objective Data Objective Data Vital Signs: Vital Signs Temp Pulse Resp BP Pulse Ox 36.2 C L 73 20 H 104/84 H 90 07/18/21 08:01 07/18/21 08:01 07/18/21 08:01 07/18/21 08:01 07/18/21 08:01 Oxygen Flow Rate (L/min) 50 Oxygen Delivery Method Airvo Weight: 109.6 kg Body Mass Index (BMI) 47.5 Intake & Output: Intake and Output for Last 24 Hours 07/16/21 07/17/21 07/18/21 23:59 23:59 23:59 Intake Total 1570 / 1570 1320 / 1320 250 / 250 Output Total 2200 / 2200 300 / 300 Balance 1570 / 1570 -880 / -880 -50 / -50 Lab / Micro Data Result Diagrams: 07/18/21 06:16 07/18/21 06:16 Labs: Laboratory Results - last 24 hr 07/18/21 06:16: WBC 6.2, RBC 4.62, Hgb 14.2, Hct 42.7, MCV 92.4, MCH 30.7, MCHC 33.3, RDW Std Deviation 43.8, RDW Coeff of Nicola 13.0, Plt Count 299, MPV 10.3, Immature Gran % (Auto) 2.800 H, Neut % (Auto) 71.5 H, Lymph % (Auto) 16.1 L, [place] % (Auto) 8.1, Eos % (Auto) 0.5, Baso % (Auto) 1.0, Absolute Neuts (auto) 4.4, Absolute Lymphs (auto) 0.99, Nucleated RBC % 0, Differential Comment SCANNED 07/18/21 06:16: Sodium 138, Potassium 3.8, Chloride 103, Carbon Dioxide 28.0, Anion Gap 7, BUN 23 H, Creatinine 0.57, Estim Creat Clear Calc 35.99, Est GFR (MDRD) Af Amer 135, Est GFR (MDRD) Non-Af 111, BUN/Creatinine Ratio 40.6 H, Glucose 147 H, Calcium 8.6, Total Bilirubin 0.30, AST 33, ALT 59 H, Alkaline Angelo sphatase 74, Total Protein 7.0, Albumin 2.3 L, Globulin 4.7 H, Albumin/Globulin Ratio 0.5 L Micro: Microbiology 07/13/21 21:57 Blood Culture (Wb) - Left Hand Blood Culture - Preliminary No growth in 48 hours. 07/13/21 21:41 Blood Culture (Wb) - Anticubital Left Blood Culture - Preliminary No growth in 48 hours. 07/14/21 06:25 Sputum, Expectorated/Coughed Gram Stain - Final 07/14/21 06:25 Sputum, Expectorated/Coughed Respiratory Culture - Final 07/13/21 21:41 Nasal Secretion SARS-CoV-2 Antigen (Rapid) - Final SARS-CoV-2 (COVID 19) Radiography Diagnostic Testing: Radiology Impression Echocardiogram 07/17/21 08:25 Interpretation Summary Normal LV size. Left ventricular systolic function is normal. The estimated ejection fraction is 55 %. Small pericardial effusion. There are no echocardiographic indications of cardiac tamponade. Ordering Physician: Elio Vera Referring Physician: Cecelia Denny D.O. Performed By: Mat Vicente RCS Physical Exam Const alert and oriented x3 Constitutional Narrative: On Airvo General Appearance: anxious HEENT normocephalic Eyes PERRL, EOMs intact bilaterally, conjunctivae normal and no scleral icterus Chest inspection of chest normal Chest: symmetrical chest wall rise; Negative for crepitus Resp no retractions and no use of accessory muscles Auscultation: diminished lung sounds; Negative for rales, rhonchi or wheezes Cardio regular rate, S1 normal heart sound, S2 normal heart sound, no murmurs, no rub and no gallops Rhythm: abnormal rhythm irregularly irregular GI normal to inspection, nondistended, normoactive bowel sounds Inspection: central obesity Extremity General Extremity: edema bilateral lower extremity Details: mild; Negative for clubbing or cyanosis Skin no rashes or lesions noted Neuro oriented x3, CN's II-XII intact bilaterally, moves all extremities and no focal motor deficits Psych Attitude: engaged Activity / Motor Behavior: restless Mood & Affect: anxious Charges/Coding Visit Charges Inpatient E&M: 15110 Subs Hosp L3
[2021-07-18] MEDS: Furosemide 40 MG/4 ML Vial IV (11:17)
--- NOTE | 2021-07-18 16:56 | PCM.PN.HOSP ---
Subjective Subjective The patient was started on baricitinib yesterday. She feels better in regard of shortness of breath or dyspnea, unclear medication or placebo effect. On airVo 67% FiO2 Afebrile Objective Data Objective Data Vital Signs: Vital Signs Temp Pulse Resp BP Pulse Ox 98.3 F 81 26 H 94/64 93 07/18/21 13:14 07/18/21 14:00 07/18/21 13:55 07/18/21 13:14 07/18/21 13:55 Oxygen Flow Rate (L/min) 50 Oxygen Delivery Method Airvo Weight: 241 lb 10.026 oz Body Mass Index (BMI) 47.5 Intake & Output: Intake and Output for Last 24 Hours 07/16/21 07/17/21 07/18/21 23:59 23:59 23:59 Intake Total 1570 / 1570 1320 / 1320 790 / 790 Output Total 2200 / 2200 1300 / 1300 Balance 1570 / 1570 -880 / -880 -510 / -510 Lab / Micro Data Result Diagrams: 07/18/21 06:16 07/18/21 06:16 Labs: Laboratory Results - last 24 hr 07/18/21 06:16: WBC 6.2, RBC 4.62, Hgb 14.2, Hct 42.7, MCV 92.4, MCH 30.7, MCHC 33.3, RDW Std Deviation 43.8, RDW Coeff of Nicola 13.0, Plt Count 299, MPV 10.3, Immature Gran % (Auto) 2.800 H, Neut % (Auto) 71.5 H, Lymph % (Auto) 16.1 L, [place] % (Auto) 8.1, Eos % (Auto) 0.5, Baso % (Auto) 1.0, Absolute Neuts (auto) 4.4, Absolute Lymphs (auto) 0.99, Nucleated RBC % 0, Differential Comment SCANNED 07/18/21 06:16: Sodium 138, Potassium 3.8, Chloride 103, Carbon Dioxide 28.0, Anion Gap 7, BUN 23 H, Creatinine 0.57, Estim Creat Clear Calc 35.99, Est GFR (MDRD) Af Amer 135, Est GFR (MDRD) Non-Af 111, BUN/Creatinine Ratio 40.6 H, Glucose 147 H, Calcium 8.6, Total Bilirubin 0.30, AST 33, ALT 59 H, Alkaline Phosphatase 74, Total Protein 7.0, Albumin 2.3 L, Globulin 4.7 H, Albumin/Globulin Ratio 0.5 L Micro: Microbiology 07/13/21 21:57 Blood Culture (Wb) - Left Hand Blood Culture - Preliminary No growth in 48 hours. 07/13/21 21:41 Blood Culture (Wb) - Anticubital Left Blood Culture - Preliminary No growth in 48 hours. 07/14/21 06:25 Sputum, Expectorated/Coughed Gram Stain - Final 07/14/21 06:25 Sputum, Expectorated/Coughed Respiratory Culture - Final 07/13/21 21:41 Nasal Secretion SARS-CoV-2 Antigen (Rapid) - Final SARS-CoV-2 (COVID 19) Physical Exam Narrative Physical exam. General: Alert, Oriented x3, Cooperative HEENT: Atraumatic, PERRLA, EOMI, Normocephalic Oral: No Gingival or Mucosal Lesions/ Ulcerations Neck: Supple, No JVD, Negative Carotid Bruits Lungs: Air entry diminished in bilateral lung bases. Bilateral lung bases crepitations. Dyspnea on exertion. No palpable crepitus. Cardiovascular: A. fib, heart rate controlled. Normal S1, Normal S2, No murmurs Abdomen: Bowel Sounds Present, Soft, Non Tender, Non-Distended : No renal angle tenderness. No suprapubic tenderness. Extremities: No edema, Capillary Refill Less than 3 Seconds Skin: No rashes, No breakdown Musculoskeletal: No Tenderness to Palpation of Joints or Extremities Neurological: Cranial nerves II-XII grossly intact, DTR 2+/4 and Symmetrical, Neuro grossly intact Psych/Mental Status: Normal Affect, Appropriate. Assessment & Plan Assessment/Plan (1) Acute respiratory failure with hypoxia: (2) Pneumonia due to 2019-nCoV: PLAN: This is a 70-year-old female admitted with cough, shortness of breath on exertion nonspecific generalized symptoms of COVID-19 pneumonia. 1. Acute hypoxic respiratory failure secondary to COVID-19 pneumonia: Patient is started on remdesivir and Decadron and discontinued. CTA chest negative for PE as mentioned below. Incentive spirometry, Pep and Mucinex D. Monitor labs CBC CMP while patient on remdesivir. Blood cultures are negative. PT and OT evaluation. Sputum culture ordered. 07/15: Clinical update was given to patient's son Mr. Mueller. Labs reviewed with him. Currently patient saturation 92% on 7 L of oxygen. Incentive spirometry and Pep encouraged. 07/16: Continue treatment. Patient's [id number], Dinah asked about Tocilizumab. I discussed with ID and usually this is indicated for someone who needs ICU level of care, on BiPAP variable therefore she meets the criteria. We further talked about Baricitinib which is JAK2 inhibitor, nonformulary given for similar indication. He asked to see how eco industrial development consultant feels about it. 07/17: Discussed with the eco industrial development consultant and consult appreciated. He deferred Baricitinib negative to ID. Will maintain communication to patient's [id number], Dinah as I talked to her yesterday. 07/18: Bariticinib started yesterday. Patient reports shortness of breath better. Monitor liver function daily. Patient on Decadron. Pulmonary consult reviewed. BiPAP rescue if necessary A. fib with RVR, new onset: Started on Cardizem 60 mg every 6 hourly. Patient on therapeutic dose of Lovenox. No prior history of cardiac or lung disease. May be precipitated by pneumonia/COVID-19 or pulmonary cause. 07/17: 2D echo is ordered. Heart rate is controlled. Patient asymptomatic from A. fib. 07/18: EF 55%. LV systolic function normal. Normal RV size. Small pericardial effusion but no cardiac tamponade. 2. Mild acute viral hepatitis due to COVID-19: AST 68. VTE prophylaxis: Lovenox 40 mgl subcu twice daily. Discontinue if platelet count drops less than 50,000 or hemoglobin less than 8 g% Total time of the visit including total time spent in counseling or coordination of care, (more than 50% of the total time, spent in obtaining medical information from nurses and other ancillary care providers,explaining to the patient about labs, imaging, diagnosis and management), discussion with riding double/eco industrial development consultant, ID and patient's [id number], review of labs and imaging is 30 minutes. Clinical Impression(s) from Imaging Studies Chest X-Ray 07/13/21 21:20 IMPRESSION: Perihilar and lower lobe reticular and alveolar opacities suspicious for pneumonia. Chest CTA 07/13/21 22:32 IMPRESSION: Findings suggest multifocal pneumonia. Normal CTA chest examination, without a demonstrated pulmonary embolism or arterial dissection. Charges/Coding Visit Charges Inpatient E&M: 35641 [facility] Hosp L3
--- NOTE | 2021-07-18 20:28 | CPS ---
o2 increased to 70% for low sat
[2021-07-19] VITALS (17 sets, daily range): BP systolic 105–139; BP diastolic 70–90; PULSE 66–91; RESP 20–26; TEMP 36.4–36.9; O2SAT 88–95
[2021-07-19] MEDS: dilTIAZem 60 MG Tablet PO ×5 (02:03→22:45)
[2021-07-19 08:12] LABS: Hematocrit 43.2 % (37-47); Hemoglobin 14.5 g/dL (12.0-15.0); Mean Corp Hgb Conc 33.6 g/dL (32-36); Mean Corpuscular Hgb 30.9 pg (27.0-32.0); Mean Corpuscular Volume 92.1 fL (81-99); POSITIVE COUNT YES; POSITIVE MORPHOLOGY YES; Platelet Count 331 K/mm3 (150-450); RBC Distribution Width CV 13.1 % (11.6-14.6); RBC Distribution Width SD 44.4 fl (35.1-43.9); Red Blood Count 4.69 M/mm3 (4.2-5.4); White Blood Count 8.7 K/mm3 (4.4-11.0)
[2021-07-19 08:14] LABS: Differential Indicated MANUAL DIFF
[2021-07-19 08:27] LABS: ALB/GLOB Ratio 0.5 RATIO (0.9-2.4); AST(SGOT) 25 U/L (15-37); Alanine Aminotransfer ALT/SGPT 53 U/L (13-56); Albumin, Serum 2.3 g/dL (3.2-5.0); Alkaline Phosphatase 72 U/L (45-117); Anion Gap 7 (5-15); BUN 33 mg/dL (7-18); Calcium,Total 8.5 mg/dL (8.5-10.1); Chloride 105 mmol/L (98-107); Creatinine, Serum 0.67 mg/dL (0.55-1.02); EST Glomerular Filtration Rate 91 mL/min (>60); Est Glom Filt Rate - Afr Amer 110 mL/min (>60); Estimated Creatinine Clearance 35.99 ml/min; Globulin 4.8 g/dL (2.2-4.2); Glucose 185 mg/dL (74-106); Potassium 3.9 mmol/L (3.5-5.1); Protein, Total 7.1 g/dL (6.4-8.2); Sodium Level 138 mmol/L (136-145)
--- NOTE | 2021-07-19 08:35 | PCM.PN.INT ---
Assessment & Plan Assessment/Plan (1) Acute respiratory failure with hypoxia: (2) Pneumonia due to 2019-nCoV: (3) Generalized weakness: PLAN: RECOMMENDATIONS: 1. DELFINA therapy per ID. Monitor liver function daily. No indication for cessation 2. Continue with Decadron therapy 3. Continue diuresis as tolerated 4. BiPAP rescue if necessary 5. Continue Seroquel IMPRESSIONS: 1. Acute hypoxic respiratory failure secondary to COVID-19 pneumonia Patient with significant worsening in hypoxia over the course of the hospitalization. This could be exacerbated by A. fib with RVR, but COVID-19 is suspected as the major etiology. Will continue to attempt to diuresis patient tolerates. Potassium supplementation has been ordered as indicated. Completed Remdesivir. Plan to complete course of Decadron therapy. Patient appears to be tolerating these well. Patient on DELFINA therapy per ID. Patient's liver function would not preclude therapy in my opinion. Unclear if anxiety is complicating pulmonary mechanics. Patient was open to continuation of Seroquel therapy 2. New onset A. fib with RVR Patient likely has an element of diastolic dysfunction given age. Rate is controlled at this time. This would be exacerbated by A. fib with RVR. Echocardiogram was relatively unremarkable except for a small pericardial effusion with no signs of tamponade. 3. Advanced age/poor primary care/poor insight Complicates care, management, recovery and prognosis. Patient may have other diagnoses that have not been made secondary to poor follow-up with PCP. Blood sugars are only mildly elevated on Decadron therapy. However, blood sugars are trending up and glargine may be necessary in the future. Subjective Subjective Patient did well overnight. No acute issues were reported. Patient states that she thought that the angiolytic was helpful. Patient is not requesting an increased dose. Patient subjectively feels unchanged compared to previous. Objective Data Objective Data Vital Signs: Vital Signs Temp Pulse Resp BP Pulse Ox 36.7 C 83 20 H 139/70 H 88 07/19/21 06:45 07/19/21 08:08 07/19/21 08:08 07/19/21 06:45 07/19/21 08:08 Oxygen Flow Rate (L/min) 50 Oxygen Delivery Method Airvo Weight: 109.4 kg Body Mass Index (BMI) 47.5 Intake & Output: Intake and Output for Last 24 Hours 07/17/21 07/18/21 07/19/21 23:59 23:59 23:59 Intake Total 1320 / 1320 1030 / 1030 100 / 100 Output Total 2200 / 2200 1750 / 1750 Balance -880 / -880 -720 / -720 100 / 100 Lab / Micro Data Result Diagrams: 07/19/21 07:53 07/19/21 07:53 Labs: Laboratory Results - last 24 hr 07/19/21 07:53: WBC 8.7, RBC 4.69, Hgb 14.5, Hct 43.2, MCV 92.1, MCH 30.9, MCHC 33.6, RDW Std Deviation 44.4 H, RDW Coeff of Nicola 13.1, Plt Count 331, MPV 10.0, Neut % (Auto) Not Reportable 07/19/21 07:53: Sodium 138, Potassium 3.9, Chloride 105, Carbon Dioxide 26.0, Anion Gap 7, BUN 33 H, Creatinine 0.67, Estim Creat Clear Calc 35.99, Est GFR (MDRD) Af Amer 110, Est GFR (MDRD) Non-Af 91, BUN/Creatinine Ratio 49.0 H, Glucose 185 H, Calcium 8.5, Total Bilirubin 0.50, AST 25, ALT 53, Alkaline Phosphatase 72, Total Protein 7.1, Albumin 2.3 L, Globulin 4.8 H, Albumin/Globulin Ratio 0.5 L Micro: Microbiology 07/13/21 21:57 Blood Culture (Wb) - Left Hand Blood Culture - Final No growth in 5 days. 07/13/21 21:41 Blood Culture (Wb) - Anticubital Left Blood Culture - Final No growth in 5 days. 07/14/21 06:25 Sputum, Expectorated/Coughed Gram Stain - Final 07/14/21 06:25 Sputum, Expectorated/Coughed Respiratory Culture - Final 07/13/21 21:41 Nasal Secretion SARS-CoV-2 Antigen (Rapid) - Final SARS-CoV-2 (COVID 19) Physical Exam Const alert and oriented x3 Constitutional Narrative: On Airvo General Appearance: anxious HEENT normocephalic Eyes PERRL, EOMs intact bilaterally, conjunctivae normal and no scleral icterus Chest inspection of chest normal Chest: symmetrical chest wall rise; Negative for crepitus Resp no retractions and no use of accessory muscles Auscultation: diminished lung sounds; Negative for rales, rhonchi or wheezes Cardio regular rate, S1 normal heart sound, S2 normal heart sound, no murmurs, no rub and no gallops Rhythm: abnormal rhythm irregularly irregular GI normal to inspection, nondistended, normoactive bowel sounds Inspection: central obesity Extremity General Extremity: edema bilateral lower extremity Details: mild; Negative for clubbing or cyanosis Skin no rashes or lesions noted Neuro oriented x3, CN's II-XII intact bilaterally, moves all extremities and no focal motor deficits Psych mental status grossly normal and thought process normal Attitude: engaged Activity / Motor Behavior: restless Mood & Affect: anxious Charges/Coding Visit Charges Inpatient E&M: 46627 Subs Hosp L3
[2021-07-19 08:49] LABS: Lymphocyte 10 % (19-41); Monocyte 6 % (0-10); Neutrophil-Band 1 % (0-5); Neutrophil-Segmented 82 % (47-70); Plasma Cell 1 %; Platelet Estimate ADEQUATE (ADEQ); Red Cell Morphology NORM C+C NORMAL (NORM C&C); Total Cells Counted 100 (MANUAL DIFF)
[2021-07-19 08:50] LABS: Absolute Lymphocyte Count 0.87 X10^3/uL (0.83-4.51); Absolute Neutrophil Count 7.2 X10^3/uL (2.0-7.7); Lymphocyte # 0.87 X10^3/ul (0.83-4.51)
[2021-07-19] MEDS: Furosemide 40 MG/4 ML Vial IV (09:17)
[2021-07-19] MEDS: Enoxaparin 120 MG/0.8 ML Syringe 110 MG SC ×2 (09:18→22:41)
[2021-07-19] MEDS: QUEtiapine 25 MG Tablet PO ×2 (09:19→22:41)
[2021-07-19] MEDS: dexAMETHasone 4 MG Tablet 6 MG PO (09:20)
[2021-07-19] MEDS: guaiFENesin/D-Methorphan TAB.SR.12H 1 TABLET PO ×2 (09:20→22:41)
--- NOTE | 2021-07-19 16:24 | NURSING ---
Update given to Ervin Per patients request.
--- NOTE | 2021-07-19 20:02 | PN.HOSP_ITS ---
Subjective Subjective Patient was seen and examined today, she is currently on Airvo at an FiO2 of 0.71. Patient question whether she could have physical therapy, I told her that she would be too limited to participate in any physical therapy or occupational therapy at this time due to her high oxygen flow rate. She stated she wanted somebody to massage her legs I told her it was not something that physical therapy did and that was not a reason to have physical therapy see her. I told her that if she improved her oxygenation, I would have PT and OT see the patient. Patient denies any fevers or chills Objective Data Objective Data Vital Signs: Vital Signs Temp Pulse Resp BP Pulse Ox 97.6 F L 87 24 H 109/81 H 91 07/19/21 14:00 07/19/21 18:47 07/19/21 16:37 07/19/21 14:00 07/19/21 16:37 Oxygen Flow Rate (L/min) 50 Oxygen Delivery Method Airvo Weight: 109.4 kg Body Mass Index (BMI) 47.5 Intake & Output: Intake and Output for Last 24 Hours 07/17/21 07/18/21 07/19/21 23:59 23:59 23:59 Intake Total 1320 / 1320 1030 / 1030 810 / 810 Output Total 2200 / 2200 1750 / 1750 800 / 800 Balance -880 / -880 -720 / -720 Lab / Micro Data Result Diagrams: 07/19/21 07:53 07/19/21 07:53 Labs: Laboratory Results - last 24 hr 07/19/21 07:53: WBC 8.7, RBC 4.69, Hgb 14.5, Hct 43.2, MCV 92.1, MCH 30.9, MCHC 33.6, RDW Std Deviation 44.4 H, RDW Coeff of Nicola 13.1, Plt Count 331, MPV 10.0, Neut % (Auto) Not Reportable, Absolute Neuts (auto) 7.2, Absolute Lymphs (auto) 0.87, Total Counted 100, Neutrophils % (Manual) 82 H, Band Neutrophils % 1, Lymphocytes % (Manual) 10 L, Monocytes % (Manual) 6, Plasma Cell % (Manual) 1, Diff Path Review March, Platelet Estimate ADEQUATE, RBC Morphology NORM C+C 07/19/21 07:53: Sodium 138, Potassium 3.9, Chloride 105, Carbon Dioxide 26.0, Anion Gap 7, BUN 33 H, Creatinine 0.67, Estim Creat Clear Calc 35.99, Est GFR (MDRD) Af Amer 110, Est GFR (MDRD) Non-Af 91, BUN/Creatinine Ratio 49.0 H, Glucose 185 H, Calcium 8.5, Total Bilirubin 0.50, AST 25, ALT 53, Alkaline Phosphatase 72, Total Protein 7.1, Albumin 2.3 L, Globulin 4.8 H, Albumin/ Globulin Ratio 0.5 L Micro: Microbiology 07/13/21 21:57 Blood Culture (Wb) - Left Hand Blood Culture - Final No growth in 5 days. 07/13/21 21:41 Blood Culture (Wb) - Anticubital Left Blood Culture - Final No growth in 5 days. 07/14/21 06:25 Sputum, Expectorated/Coughed Gram Stain - Final 07/14/21 06:25 Sputum, Expectorated/Coughed Respiratory Culture - Final 07/13/21 21:41 Nasal Secretion SARS-CoV-2 Antigen (Rapid) - Final SARS-CoV-2 (COVID 19) Physical Exam Const alert, oriented x3 and no apparent distress General Appearance: cooperative, well kempt and well developed Orientation / Consciousness: awake, oriented to person, oriented to place and oriented to time HEENT normocephalic, head/scalp atraumatic and moist oral mucous membranes Head and Scalp: normocephalic Eyes PERRL, EOMs intact bilaterally and conjunctivae normal Neck nuchal rigidity, supple, no JVD, thyroid normal and no carotid bruits General: trachea midline Resp normal respiratory effort, no retractions and no use of accessory muscles Resp Narrative: Breath sounds were distant bilaterally Auscultation: Negative for rales, rhonchi or wheezes Cardio regular rhythm, S1 normal heart sound, S2 normal heart sound, no murmurs, no rub and no gallops Cardio Narrative: Heart rate and rhythm is irregular GI normal to inspection, nondistended, normoactive bowel sounds, soft to palpation, non-tender and non-distended Extremity normal to inspection and no clubbing, cyanosis or edema Skin no rashes or lesions noted, no wounds and skin turgor normal General Skin Exam: no breakdown Neuro oriented x3, CN's II-XII intact bilaterally, no focal motor deficits and no sensory deficits noted Sensorium / Orientation: awake and alert Speech: speech normal Psych thought process normal and affect normal Assessment & Plan Assessment/Plan (1) Pneumonia due to 2019-nCoV: PLAN: 1. COVID-19 pneumonia-patient is currently on dexamethasone and ba ricitinib. She is being seen by infectious diseases. Patient finished her remdesivir #2 acute hypoxic respiratory failure-pulmonary medicine is participating in her care #3 new onset A. fib-continue full anticoagulation, monitor on telemetry Charges/Coding Visit Charges Inpatient E&M: 45010 Subs Hosp L2
[2021-07-19] MEDS: 0.9% Saline Lock 10 ML Syringe IV (22:42)
[2021-07-20] VITALS (19 sets, daily range): BP systolic 110–130; BP diastolic 72–90; PULSE 64–103; RESP 18–24; TEMP 36.5–37; O2SAT 87–93
[2021-07-20] MEDS: dilTIAZem 60 MG Tablet PO ×4 (05:20→22:42)
[2021-07-20 08:43] LABS: Hematocrit 45.9 % (37-47); Hemoglobin 15.1 g/dL (12.0-15.0); Mean Corp Hgb Conc 32.9 g/dL (32-36); Mean Corpuscular Hgb 30.8 pg (27.0-32.0); Mean Corpuscular Volume 93.5 fL (81-99); Mean Platelet Vol. 10.1 fl (6.2-12.0); POSITIVE COUNT YES; POSITIVE MORPHOLOGY YES; Platelet Count 386 K/mm3 (150-450); RBC Distribution Width CV 13.1 % (11.6-14.6); Red Blood Count 4.91 M/mm3 (4.2-5.4); White Blood Count 9.9 K/mm3 (4.4-11.0)
[2021-07-20 08:46] LABS: Differential Indicated MANUAL DIFF
[2021-07-20 09:18] LABS: ALB/GLOB Ratio 0.5 RATIO (0.9-2.4); AST(SGOT) 22 U/L (15-37); Alanine Aminotransfer ALT/SGPT 51 U/L (13-56); Albumin, Serum 2.5 g/dL (3.2-5.0); Alkaline Phosphatase 73 U/L (45-117); Anion Gap 8 (5-15); BUN 39 mg/dL (7-18); BUN/Creat Ratio 52.9 RATIO (10-20); Calcium,Total 8.6 mg/dL (8.5-10.1); Chloride 102 mmol/L (98-107); Creatinine, Serum 0.74 mg/dL (0.55-1.02); EST Glomerular Filtration Rate 82 mL/min (>60); Est Glom Filt Rate - Afr Amer 99 mL/min (>60); Estimated Creatinine Clearance 35.99 ml/min; Globulin 4.7 g/dL (2.2-4.2); Glucose 141 mg/dL (74-106); Potassium 4.2 mmol/L (3.5-5.1); Protein, Total 7.2 g/dL (6.4-8.2); Sodium Level 139 mmol/L (136-145)
[2021-07-20 09:38] LABS: Lymphocyte 12 % (19-41); Monocyte 10 % (0-10); Myelocyte 1 % (0-0); Neutrophil-Segmented 77 % (47-70); Total Cells Counted 100 (MANUAL DIFF)
[2021-07-20 09:39] LABS: Platelet Estimate ADEQUATE (ADEQ); Red Cell Morphology NORM C+C NORMAL (NORM C&C)
[2021-07-20 09:40] LABS: Absolute Lymphocyte Count 1.19 X10^3/uL (0.83-4.51); Absolute Neutrophil Count 7.7 X10^3/uL (2.0-7.7)
[2021-07-20] MEDS: Enoxaparin 120 MG/0.8 ML Syringe 110 MG SC ×2 (10:03→22:41)
[2021-07-20] MEDS: dexAMETHasone 4 MG Tablet 6 MG PO (10:03)
[2021-07-20] MEDS: guaiFENesin/D-Methorphan TAB.SR.12H 1 TABLET PO (10:03)
[2021-07-20] MEDS: QUEtiapine 25 MG Tablet PO ×2 (10:04→22:41)
[2021-07-20] MEDS: Furosemide 40 MG/4 ML Vial IV ×2 (12:07→16:40)
[2021-07-20] MEDS: 0.9% Saline Lock 10 ML Syringe IV ×2 (12:07→16:40)
--- NOTE | 2021-07-20 12:28 | PN.CC_ITS ---
Assessment & Plan Assessment/Plan (1) Acute respiratory failure with hypoxia: (2) Pneumonia due to 2019-nCoV: (3) Generalized weakness: PLAN: RECOMMENDATIONS: 1. DELFINA therapy per ID. Monitor liver function daily. No indication for cessation 2. Continue with Decadron therapy to complete a 10-day course (07/24/2021) 3. Continue diuresis as tolerated 4. BiPAP rescue if necessary 5. Continue Seroquel 6. Consider transition to 10 a inhibitor IMPRESSIONS: 1. Acute hypoxic respiratory failure secondary to COVID-19 pneumonia Patient with significant worsening in hypoxia over the course of the hospitalization. This could be exacerbated by A. fib with RVR, but COVID-19 is suspected as the major etiology. Will continue to attempt to diuresis patient tolerates. Potassium supplementation will be ordered as indicated. Completed Remdesivir. Plan to complete course of Decadron therapy. Patient appears to be tolerating these well. Patient on DELFINA therapy per ID. Patient's liver function would not preclude therapy in my opinion. Patient appears to have responded well to Seroquel therapy. Could consider transitioning to p.o. anticoagulation 2. New onset A. fib with RVR Patient likely has an element of diastolic dysfunction given age. Rate is controlled at this time. This would be exacerbated by A. fib with RVR. Echocardiogram was relatively unremarkable except for a small pericardial effusion with no signs of tamponade. 3. Advanced age/poor primary care/poor insight Complicates care, management, recovery and prognosis. Patient may have other diagnoses that have not been made secondary to poor follow-up with PCP. Blood sugars are only mildly elevated on Decadron therapy. However, blood sugars are trending up and glargine may be necessary in the future. Subjective Subjective Patient has required increased FiO2 over the last 24 hours. However, patient states that she feels subjectively improved compared to previous. Patient believes her anxiety is much improved. Patient does report coughing with intermittent production. Objective Data Objective Data Vital Signs: Vital Signs Temp Pulse Resp BP Pulse Ox 36.7 C 76 18 117/78 92 07/20/21 09:59 07/20/21 09:59 07/20/21 09:59 07/20/21 09:59 07/20/21 09:59 Oxygen Flow Rate (L/min) 60 Oxygen Delivery Method Airvo Weight: 108.1 kg Body Mass Index (BMI) 47.5 Intake & Output: Intake and Output for Last 24 Hours 07/18/21 07/19/21 07/20/21 23:59 23:59 23:59 Intake Total 1030 / 1030 810 / 810 200 / 200 Output Total 1750 / 1750 800 / 800 Balance -720 / -720 200 / 200 Lab / Micro Data Result Diagrams: 07/20/21 08:26 07/20/21 08:26 Labs: Laboratory Results - last 24 hr 07/20/21 08:26: WBC 9.9, RBC 4.91, Hgb 15.1 H, Hct 45.9, MCV 93.5, MCH 30.8, MCHC 32.9, RDW Std Deviation 45.0 H, RDW Coeff of Nicola 13.1, Plt Count 386, MPV 10.1, Neut % (Auto) Not Reportable, Absolute Neuts (auto) 7.7, Absolute Lymphs (auto) 1.19, Total Counted 100, Neutrophils % (Manual) 77 H, Lymphocytes % (Manual) 12 L, Monocytes % (Manual) 10, Myelocytes % 1 H, Diff Path Review March, Platelet Estimate ADEQUATE, RBC Morphology NORM C+C 07/20/21 08:26: Sodium 139, Potassium 4.2, Chloride 102, Carbon Dioxide 29.0, Anion Gap 8, BUN 39 H, Creatinine 0.74, Estim Creat Clear Calc 35.99, Est GFR (MDRD) Af Amer 99, Est GFR (MDRD) Non-Af 82, BUN/Creatinine Ratio 52.9 H, Glucose 141 H, Calcium 8.6, Total Bilirubin 0.50, AST 22, ALT 51, Alkaline Phosphatase 73, Total Protein 7.2, Albumin 2.5 L, Globulin 4.7 H, Albumin/Globul in Ratio 0.5 L Micro: Microbiology 07/13/21 21:57 Blood Culture (Wb) - Left Hand Blood Culture - Final No growth in 5 days. 07/13/21 21:41 Blood Culture (Wb) - Anticubital Left Blood Culture - Final No growth in 5 days. 07/14/21 06:25 Sputum, Expectorated/Coughed Gram Stain - Final 07/14/21 06:25 Sputum, Expectorated/Coughed Respiratory Culture - Final 07/13/21 21:41 Nasal Secretion SARS-CoV-2 Antigen (Rapid) - Final SARS-CoV-2 (COVID 19) Physical Exam Const alert and oriented x3 Constitutional Narrative: On Airvo General Appearance: anxious HEENT normocephalic Eyes PERRL, EOMs intact bilaterally, conjunctivae normal and no scleral icterus Chest inspection of chest normal Chest: symmetrical chest wall rise; Negative for crepitus Resp no retractions and no use of accessory muscles Auscultation: diminished lung sounds; Negative for rales, rhonchi or wheezes Cardio regular rate, S1 normal heart sound, S2 normal heart sound, no murmurs, no rub and no gallops Rhythm: abnormal rhythm irregularly irregular GI normal to inspection, nondistended, normoactive bowel sounds Inspection: central obesity Extremity General Extremity: edema bilateral lower extremity Details: mild; Negative for clubbing or cyanosis Skin no rashes or lesions noted Neuro oriented x3, CN's II-XII intact bilaterally, moves all extremities and no focal motor deficits Psych mental status grossly normal and thought process normal Attitude: engaged Activity / Motor Behavior: restless Mood & Affect: anxious Charges/Coding Visit Charges Inpatient E&M: 81133 Subs Hosp L3
--- NOTE | 2021-07-20 18:57 | PCM.PN.HOSP ---
Subjective Subjective Patient was seen and examined today, she is currently on Airvo at an FiO2 of 0.8. Patient denies any fevers or chills. Objective Data Objective Data Vital Signs: Vital Signs Temp Pulse Resp BP Pulse Ox 98.4 F 81 24 H 116/72 92 07/20/21 18:42 07/20/21 18:42 07/20/21 18:42 07/20/21 18:42 07/20/21 18:42 Oxygen Flow Rate (L/min) 60 Oxygen Delivery Method Airvo Weight: 108.1 kg Body Mass Index (BMI) 47.5 Intake & Output: Intake and Output for Last 24 Hours 07/18/21 07/19/21 07/20/21 23:59 23:59 23:59 Intake Total 1030 / 1030 810 / 810 800 / 800 Output Total 1750 / 1750 800 / 800 1100 / 1100 Balance -720 / -720 -300 / -300 Lab / Micro Data Result Diagrams: 07/20/21 08:26 07/20/21 08:26 Labs: Laboratory Results - last 24 hr 07/20/21 08:26: WBC 9.9, RBC 4.91, Hgb 15.1 H, Hct 45.9, MCV 93.5, MCH 30.8, MCHC 32.9, RDW Std Deviation 45.0 H, RDW Coeff of Nicola 13.1, Plt Count 386, MPV 10.1, Neut % (Auto) Not Reportable, Absolute Neuts (auto) 7.7, Absolute Lymphs (auto) 1.19, Total Counted 100, Neutrophils % (Manual) 77 H, Lymphocytes % (Manual) 12 L, Monocytes % (Manual) 10, Myelocytes % 1 H, Diff Path Review March, Platelet Estimate ADEQUATE, RBC Morphology NORM C+C 07/20/21 08:26: Sodium 139, Potassium 4.2, Chloride 102, Carbon Dioxide 29.0, Anion Gap 8, BUN 39 H, Creatinine 0.74, Estim Creat Clear Calc 35.99, Est GFR (MDRD) Af Amer 99, Est GFR (MDRD) Non-Af 82, BUN/Creatinine Ratio 52.9 H, Glucose 141 H, Calcium 8.6, Total Bilirubin 0.50, AST 22, ALT 51, Alkaline Phosphatase 73, Total Protein 7.2, Albumin 2.5 L, Globulin 4.7 H, Albumin/Globulin Ratio 0.5 L Micro: Microbiology 07/13/21 21:57 Blood Culture (Wb) - Left Hand Blood Culture - Final No growth in 5 days. 07/13/21 21:41 Blood Culture (Wb) - Anticubital Left Blood Culture - Final No growth in 5 days. 07/14/21 06:25 Sputum, Expectorated/Coughed Gram Stain - Final 07/14/21 06:25 Sputum, Expectorated/Coughed Respiratory Culture - Final 07/13/21 21:41 Nasal Secretion SARS-CoV-2 Antigen (Rapid) - Final SARS-CoV-2 (COVID 19) Physical Exam Narrative alert, oriented x3 and no apparent distress General Appearance: cooperative, well kempt and well developed Orientation / Consciousness: awake, oriented to person, oriented to place and oriented to time HEENT normocephalic, head/scalp atraumatic and moist oral mucous membranes Head and Scalp: normocephalic Eyes PERRL, EOMs intact bilaterally and conjunctivae normal Neck nuchal rigidity, supple, no JVD, thyroid normal and no carotid bruits General: trachea midline Resp normal respiratory effort, no retractions and no use of accessory muscles Resp Narrative: Breath sounds were distant bilaterally Auscultation: Negative for rales, rhonchi or wheezes Cardio irregular rhythm, S1 normal heart sound, S2 normal heart sound, no murmurs, no rub and no gallops Cardio Narrative: Heart rate and rhythm is irregular GI normal to inspection, nondistended, normoactive bowel sounds, soft to palpation, non-tender and non-distended Extremity normal to inspection and no clubbing, cyanosis or edema Skin no rashes or lesions noted, no wounds and skin turgor normal General Skin Exam: no breakdown Neuro oriented x3, CN's II-XII intact bilaterally, no focal motor deficits and no sensory deficits noted Sensorium / Orientation: awake and alert Speech: speech normal Psych thought process normal and affect normal Assessment & Plan Assessment/Plan (1) Pneumonia due to 2019-nCoV: PLAN: 1. COVID-19 pneumonia-patient is currently on dexamethasone and baricitinib. She is being seen by infectious diseases. Patient finished her remdesivir, pulmonary medicine is participating in her care #2 acute hypoxic respiratory failure-pulmonary medicine is participating in her care #3 new onset A. fib-continue full anticoagulation, monitor on telemetry Charges/Coding Visit Charges Inpatient E&M: 31758 Subs Hosp L2
[2021-07-20] MEDS: guaiFENesin 1,200 MG Tablet 1200 MG PO (22:41)
[2021-07-21] VITALS (15 sets, daily range): BP systolic 108–123; BP diastolic 62–85; PULSE 64–110; RESP 17–28; TEMP 36.3–36.7; O2SAT 90–94
[2021-07-21] MEDS: dilTIAZem 60 MG Tablet PO ×4 (05:47→22:39)
[2021-07-21 08:19] LABS: Hematocrit 46.2 % (37-47); Hemoglobin 15.3 g/dL (12.0-15.0); Mean Corp Hgb Conc 33.1 g/dL (32-36); Mean Corpuscular Hgb 30.4 pg (27.0-32.0); Mean Corpuscular Volume 91.8 fL (81-99); Mean Platelet Vol. 10.3 fl (6.2-12.0); POSITIVE COUNT YES; POSITIVE MORPHOLOGY YES; Platelet Count 374 K/mm3 (150-450); RBC Distribution Width CV 13.1 % (11.6-14.6); Red Blood Count 5.03 M/mm3 (4.2-5.4); White Blood Count 11.1 K/mm3 (4.4-11.0)
[2021-07-21 08:20] LABS: Differential Indicated MANUAL DIFF
[2021-07-21] MEDS: Enoxaparin 120 MG/0.8 ML Syringe 110 MG SC ×2 (08:37→22:39)
[2021-07-21] MEDS: dexAMETHasone 4 MG Tablet 6 MG PO (08:38)
[2021-07-21] MEDS: QUEtiapine 25 MG Tablet PO ×2 (08:38→22:39)
[2021-07-21] MEDS: guaiFENesin 1,200 MG Tablet 1200 MG PO ×2 (08:42→22:39)
[2021-07-21 08:44] LABS: ALB/GLOB Ratio 0.5 RATIO (0.9-2.4); AST(SGOT) 20 U/L (15-37); Alanine Aminotransfer ALT/SGPT 47 U/L (13-56); Albumin, Serum 2.4 g/dL (3.2-5.0); Alkaline Phosphatase 74 U/L (45-117); Anion Gap 8 (5-15); BUN 42 mg/dL (7-18); Calcium,Total 8.5 mg/dL (8.5-10.1); Chloride 99 mmol/L (98-107); Creatinine, Serum 0.72 mg/dL (0.55-1.02); EST Glomerular Filtration Rate 84 mL/min (>60); Est Glom Filt Rate - Afr Amer 102 mL/min (>60); Estimated Creatinine Clearance 35.99 ml/min; Globulin 4.8 g/dL (2.2-4.2); Glucose 145 mg/dL (74-106); Potassium 4.2 mmol/L (3.5-5.1); Protein, Total 7.2 g/dL (6.4-8.2); Sodium Level 134 mmol/L (136-145)
[2021-07-21 08:48] LABS: Lymphocyte 8 % (19-41); Monocyte 15 % (0-10); Neutrophil-Band 1 % (0-5); Neutrophil-Segmented 76 % (47-70); Total Cells Counted 100 (MANUAL DIFF)
[2021-07-21 08:50] LABS: Absolute Lymphocyte Count 0.89 X10^3/uL (0.83-4.51); Absolute Neutrophil Count 8.6 X10^3/uL (2.0-7.7); Platelet Estimate ADEQUATE (ADEQ); Red Cell Morphology NORM C+C NORMAL (NORM C&C)
[2021-07-21] MEDS: 0.9% Saline Lock 10 ML Syringe IV ×2 (11:48→17:41)
[2021-07-21] MEDS: Furosemide 40 MG/4 ML Vial IV ×2 (11:48→17:41)
[2021-07-21] MEDS: Sodium Chloride 0.65% 1 SPRAY SPRAY.BTL 2 SPRAY NASAL (11:48)
--- NOTE | 2021-07-21 12:32 | PN.CC_ITS ---
Assessment & Plan Assessment/Plan (1) Acute respiratory failure with hypoxia: (2) Pneumonia due to 2019-nCoV: (3) Generalized weakness: PLAN: RECOMMENDATIONS: 1. DELFINA therapy per ID. Monitor liver function daily. No indication for cessation 2. Continue with Decadron therapy to complete a 10-day course (07/24/2021) 3. Continue diuresis as tolerated 4. BiPAP rescue if necessary 5. Continue Seroquel 6. Consider transition to 10 a inhibitor 7. Add nasal saline IMPRESSIONS: 1. Acute hypoxic respiratory failure secondary to COVID-19 pneumonia Patient with significant worsening in hypoxia over the course of the hospitalization. This could be exacerbated by A. fib with RVR, but COVID-19 is suspected as the major etiology. Will continue to attempt to diuresis patient tolerates. Potassium supplementation will be ordered as indicated. Will place patient on nasal saline to help with epistaxis. Completed Remdesivir. Plan to complete course of Decadron therapy. Patient appears to be tolerating these well. Patient on DELFINA therapy per ID. Patient's liver function would not preclude therapy in my opinion. Patient appears to have responded well to Seroquel therapy. Could consider transitioning to p.o. anticoagulation 2. New onset A. fib with RVR Patient likely has an element of diastolic dysfunction given age. Rate is controlled at this time. This would be exacerbated by A. fib with RVR. Echocardiogram was relatively unremarkable except for a small pericardial effusion with no signs of tamponade. Patient is on systemic anticoagulation. 3. Advanced age/poor primary care/poor insight Complicates care, management, recovery and prognosis. Patient may have other diagnoses that have not been made secondary to poor follow-up with PCP. B lood sugars are only mildly elevated on Decadron therapy. Blood sugar appears to be acceptable at this time. Subjective Subjective Patient did okay overnight. Patient is reporting intermittent epistaxis that is complicating oxygenation. Patient has had intermittent coughing and reports compliance with incentive spirometer. Objective Data Objective Data Vital Signs: Vital Signs Temp Pulse Resp BP Pulse Ox 36.6 C 64 18 115/75 92 07/21/21 11:57 07/21/21 11:57 07/21/21 11:57 07/21/21 11:57 07/21/21 11:57 Oxygen Flow Rate (L/min) 60 Oxygen Delivery Method Airvo Weight: 106.6 kg Body Mass Index (BMI) 47.5 Intake & Output: Intake and Output for Last 24 Hours 07/19/21 07/20/21 07/21/21 23:59 23:59 23:59 Intake Total 810 / 810 1400 / 1700 500 / 500 Output Total 800 / 800 2900 / 2900 250 / 250 Balance -1500 / -1200 250 / 250 Lab / Micro Data Result Diagrams: 07/21/21 07:38 07/21/21 07:38 Labs: Laboratory Results - last 24 hr 07/21/21 07:38: WBC 11.1 H, RBC 5.03, Hgb 15.3 H, Hct 46.2, MCV 91.8, MCH 30.4, MCHC 33.1, RDW Std Deviation 44.0 H, RDW Coeff of Nicola 13.1, Plt Count 374, MPV 10.3, Neut % (Auto) Not Reportable, Absolute Neuts (auto) 8.6 H, Absolute Lymphs (auto) 0.89, Total Counted 100, Neutrophils % (Manual) 76 H, Band Neutrophils % 1, Lymphocytes % (Manual) 8 L, Monocytes % (Manual) 15 H, Platelet Estimate ADEQUATE, RBC Morphology NORM C+C 07/21/21 07:38: Sodium 134 L, Potassium 4.2, Chloride 99, Carbon Dioxide 27.0, Anion Gap 8, BUN 42 H, Creatinine 0.72, Estim Creat Clear Calc 35.99, Est GFR (MDRD) Af Amer 102, Est GFR (MDRD) Non-Af 84, BUN/Creatinine Ratio 58.0 H, Glucose 145 H, Calcium 8.5, Total Bilirubin 0.40, AST 20, ALT 47, Alkaline Phosphatase 74, Total Protein 7.2, Albumin 2.4 L, Globulin 4.8 H, Albumin/Globul in Ratio 0.5 L Micro: Microbiology 07/13/21 21:57 Blood Culture (Wb) - Left Hand Blood Culture - Final No growth in 5 days. 07/13/21 21:41 Blood Culture (Wb) - Anticubital Left Blood Culture - Final No growth in 5 days. 07/14/21 06:25 Sputum, Expectorated/Coughed Gram Stain - Final 07/14/21 06:25 Sputum, Expectorated/Coughed Respiratory Culture - Final 07/13/21 21:41 Nasal Secretion SARS-CoV-2 Antigen (Rapid) - Final SARS-CoV-2 (COVID 19) Physical Exam Const alert and oriented x3 Constitutional Narrative: On Airvo General Appearance: anxious HEENT normocephalic Eyes PERRL, EOMs intact bilaterally, conjunctivae normal and no scleral icterus Chest inspection of chest normal Chest: symmetrical chest wall rise; Negative for crepitus Resp no retractions and no use of accessory muscles Auscultation: diminished lung sounds; Negative for rales, rhonchi or wheezes Cardio regular rate, S1 normal heart sound, S2 normal heart sound, no murmurs, no rub and no gallops Rhythm: abnormal rhythm irregularly irregular GI normal to inspection, nondistended, normoactive bowel sounds Inspection: central obesity Extremity General Extremity: edema bilateral lower extremity Details: mild; Negative for clubbing or cyanosis Skin no rashes or lesions noted Neuro oriented x3, CN's II-XII intact bilaterally, moves all extremities and no focal motor deficits Psych mental status grossly normal and thought process normal Attitude: engaged Activity / Motor Behavior: restless Mood & Affect: anxious Charges/Coding Visit Charges Inpatient E&M: 19985 Subs Hosp L3
--- NOTE | 2021-07-21 18:18 | PCM.PN.HOSP ---
Subjective Subjective Patient was seen and examined today, she is currently on Airvo at an FiO2 of 0.82, she does not appear dyspneic at rest, she is sitting in a chair and does not complain of any chest discomfort, fever or chills. Objective Data Objective Data Vital Signs: Vital Signs Temp Pulse Resp BP Pulse Ox 97.4 F L 64 17 108/62 91 07/21/21 17:46 07/21/21 17:46 07/21/21 17:46 07/21/21 17:46 07/21/21 17:46 Oxygen Flow Rate (L/min) 60 Oxygen Delivery Method Airvo Weight: 106.6 kg Body Mass Index (BMI) 47.5 Intake & Output: Intake and Output for Last 24 Hours 07/19/21 07/20/21 07/21/21 23:59 23:59 23:59 Intake Total 810 / 810 1400 / 1700 2000 / 2000 Output Total 800 / 800 2900 / 2900 1300 / 1300 Balance 10 -1500 / -1200 700 / 700 Lab / Micro Data Result Diagrams: 07/21/21 07:38 07/21/21 07:38 Labs: Laboratory Results - last 24 hr 07/21/21 07:38: WBC 11.1 H, RBC 5.03, Hgb 15.3 H, Hct 46.2, MCV 91.8, MCH 30.4, MCHC 33.1, RDW Std Deviation 44.0 H, RDW Coeff of Nicola 13.1, Plt Count 374, MPV 10.3, Neut % (Auto) Not Reportable, Absolute Neuts (auto) 8.6 H, Absolute Lymphs (auto) 0.89, Total Counted 100, Neutrophils % (Manual) 76 H, Band Neutrophils % 1, Lymphocytes % (Manual) 8 L, Monocytes % (Manual) 15 H, Platelet Estimate ADEQUATE, RBC Morphology NORM C+C 07/21/21 07:38: Sodium 134 L, Potassium 4.2, Chloride 99, Carbon Dioxide 27.0, Anion Gap 8, BUN 42 H, Creatinine 0.72, Estim Creat Clear Calc 35.99, Est GFR (MDRD) Af Amer 102, Est GFR (MDRD) Non-Af 84, BUN/Creatinine Ratio 58.0 H, Glucose 145 H, Calcium 8.5, Total Bilirubin 0.40, AST 20, ALT 47, Alkaline Phosphatase 74, Total Protein 7.2, Albumin 2.4 L, Globulin 4.8 H, Albumin/Globulin Ratio 0.5 L Micro: Microbiology 07/13/21 21:57 Blood Culture (Wb) - Left Hand Blood Culture - Final No growth in 5 days. 07/13/21 21:41 Blood Culture (Wb) - Anticubital Left Blood Culture - Final No growth in 5 days. 07/14/21 06:25 Sputum, Expectorated/Coughed Gram Stain - Final 07/14/21 06:25 Sputum, Expectorated/Coughed Respiratory Culture - Final 07/13/21 21:41 Nasal Secretion SARS-CoV-2 Antigen (Rapid) - Final SARS-CoV-2 (COVID 19) Physical Exam Narrative alert, oriented x3 and no apparent distress General Appearance: cooperative, well kempt and well developed Orientation / Consciousness: awake, oriented to person, oriented to place and oriented to time HEENT normocephalic, head/scalp atraumatic and moist oral mucous membranes Head and Scalp: normocephalic Eyes PERRL, EOMs intact bilaterally and conjunctivae normal Neck nuchal rigidity, supple, no JVD, thyroid normal and no carotid bruits General: trachea midline Resp normal respiratory effort, no retractions and no use of accessory muscles Resp Narrative: Breath sounds were distant bilaterally Auscultation: Negative for rales, rhonchi or wheezes Cardio irregular rhythm, S1 normal heart sound, S2 normal heart sound, no murmurs, no rub and no gallops Cardio Narrative: Heart rate and rhythm is irregular GI normal to inspection, nondistended, normoactive bowel sounds, soft to palpation, non-tender and non-distended Extremity normal to inspection and no clubbing, cyanosis or edema Skin no rashes or lesions noted, no wounds and skin turgor normal General Skin Exam: no breakdown Neuro oriented x3, CN's II-XII intact bilaterally, no focal motor deficits and no sensory deficits noted Sensorium / Orientation: awake and alert Speech: speech normal Psych thought process normal and affect normal Assessment & Plan Assessment/Plan (1) Pneumonia due to 2019-nCoV: PLAN: 1. COVID-19 pneumonia-patient is currently on dexamethasone and baricitinib. She is being seen by infectious diseases. Patient finished her remdesivir, pulmonary medicine is participating in her care #2 acute hypoxic respiratory failure-pulmonary medicine is participating in her care #3 new onset A. fib-continue full anticoagulation, monitor on telemetry Prognosis remains guarded at this time Charges/Coding Visit Charges Inpatient E&M: 38345 Subs Hosp L2
[2021-07-22] VITALS (17 sets, daily range): BP systolic 108–122; BP diastolic 53–83; PULSE 52–96; RESP 18–23; TEMP 36.1–36.8; O2SAT 91–94
[2021-07-22] MEDS: dilTIAZem 60 MG Tablet PO ×4 (05:33→23:29)
[2021-07-22] MEDS: guaiFENesin 1,200 MG Tablet 1200 MG PO ×2 (10:36→20:58)
[2021-07-22] MEDS: Enoxaparin 120 MG/0.8 ML Syringe 110 MG SC ×2 (10:36→20:57)
[2021-07-22] MEDS: QUEtiapine 25 MG Tablet PO ×2 (10:37→20:58)
[2021-07-22] MEDS: dexAMETHasone 4 MG Tablet 6 MG PO (10:37)
--- NOTE | 2021-07-22 11:01 | NURSING ---
Flori Mahajan patient wants to get cleaned up before lunch.
[2021-07-22 13:00] LABS: Pathologist Review Reviewed
[2021-07-22 13:01] LABS: Pathologist Review Reviewed
--- NOTE | 2021-07-22 16:03 | PCM.PN.ID ---
Physical Exam Narrative Feeling better, breathing improved, no fever Const alert General Appearance: cooperative Resp clear to auscultation bilaterally Auscultation: diminished lung sounds Cardio regular rate and regular rhythm GI normal to inspection, nondistended, normoactive bowel sounds Extremity no clubbing, cyanosis or edema Skin no rashes or lesions noted ID ID: Route of nutrition/ use of supplements: [] Nutritional Intake: [] IV Site: [] [place] Catheter: [] Assessment & Plan Assessment/Plan (1) Acute respiratory failure with hypoxia: (2) Pneumonia due to 2019-nCoV: PLAN: Sx started 07/07. Unvaccinated. On dex and baricitinib, completed remdesivir. Isolate for 20 days until 07/27, after that recommend covid vaccine. Will follow
--- NOTE | 2021-07-22 19:06 | PCM.PN.HOSP ---
Subjective Subjective Patient was seen and examined today, she does not appear in any respiratory distress and does not complain of any chest pain or shortness of breath at rest. Patient remains on Airvo at this time. Objective Data Objective Data Vital Signs: Vital Signs Temp Pulse Resp BP Pulse Ox 97.4 F L 52 L 20 H 114/70 93 07/22/21 14:36 07/22/21 17:25 07/22/21 15:25 07/22/21 14:36 07/22/21 17:25 Oxygen Flow Rate (L/min) 60 Oxygen Delivery Method Airvo Weight: 107 kg Body Mass Index (BMI) 47.5 Intake & Output: Intake and Output for Last 24 Hours 07/20/21 07/21/21 07/22/21 23:59 23:59 23:59 Intake Total 1400 / 1700 2000 / 2300 1650 / 1650 Output Total 2900 / 2900 1300 / 1300 100 / 100 Balance -1500 / -1200 700 / 1000 1550 / 1550 Lab / Micro Data Result Diagrams: 07/21/21 07:38 07/21/21 07:38 Labs: Laboratory Results - last 24 hr 07/19/21 07:53: Diff Path Review Reviewed 07/20/21 08:26: Diff Path Review Reviewed Micro: Microbiology 07/13/21 21:57 Blood Culture (Wb) - Left Hand Blood Culture - Final No growth in 5 days. 07/13/21 21:41 Blood Culture (Wb) - Anticubital Left Blood Culture - Final No growth in 5 days. 07/14/21 06:25 Sputum, Expectorated/Coughed Gram Stain - Final 07/14/21 06:25 Sputum, Expectorated/Coughed Respiratory Culture - Final 07/13/21 21:41 Nasal Secretion SARS-CoV-2 Antigen (Rapid) - Final SARS-CoV-2 (COVID 19) Physical Exam Narrative alert, oriented x3 and no apparent distress General Appearance: cooperative, well kempt and well developed Orientation / Consciousness: awake, oriented to person, oriented to place and oriented to time HEENT normocephalic, head/scalp atraumatic and moist oral mucous membranes Head and Scalp: normocephalic Eyes PERRL, EOMs intact bilaterally and conjunctivae normal Neck nuchal rigidity, supple, no JVD, thyroid normal and no carotid bruits General: trachea midline Resp normal respiratory effort, no retractions and no use of accessory muscles Resp Narrative: Breath sounds were distant bilaterally Auscultation: Negative for rales, rhonchi or wheezes Cardio irregular rhythm, S1 normal heart sound, S2 normal heart sound, no murmurs, no rub and no gallops Cardio Narrative: Heart rate and rhythm is irregular GI normal to inspection, nondistended, normoactive bowel sounds, soft to palpation, non-tender and non-distended Extremity normal to inspection and no clubbing, cyanosis or edema Skin no rashes or lesions noted, no wounds and skin turgor normal General Skin Exam: no breakdown Neuro oriented x3, CN's II-XII intact bilaterally, no focal motor deficits and no sensory deficits noted Sensorium / Orientation: awake and alert Speech: speech normal Psych thought process normal and affect normal Assessment & Plan Assessment/Plan (1) Pneumonia due to 2019-nCoV: PLAN: 1. COVID-19 pneumonia-patient is currently on dexamethasone and baricitinib. She is being seen by infectious diseases. Patient finished her remdesivir, pulmonary medicine is participating in her care #2 acute hypoxic respiratory failure-pulmonary medicine is participating in her care, no changes at this time #3 new onset A. fib-continue full anticoagulation, monitor on telemetry Prognosis remains guarded at this time Charges/Coding Visit Charges Inpatient E&M: 04738 Subs Hosp L2
[2021-07-23] VITALS (15 sets, daily range): BP systolic 95–133; BP diastolic 69–93; PULSE 60–93; RESP 16–28; TEMP 36.6–36.8; O2SAT 89–94
[2021-07-23] MEDS: dilTIAZem 60 MG Tablet PO ×3 (05:28→23:03)
[2021-07-23] MEDS: Enoxaparin 120 MG/0.8 ML Syringe 110 MG SC ×2 (09:55→20:20)
[2021-07-23] MEDS: dexAMETHasone 4 MG Tablet 6 MG PO (09:55)
[2021-07-23] MEDS: guaiFENesin 1,200 MG Tablet 1200 MG PO ×2 (09:56→20:20)
[2021-07-23] MEDS: QUEtiapine 25 MG Tablet PO ×2 (09:57→20:20)
--- NOTE | 2021-07-23 12:44 | PN.CC_ITS ---
Assessment & Plan Assessment/Plan (1) Acute respiratory failure with hypoxia: (2) Pneumonia due to 2019-nCoV: (3) Generalized weakness: PLAN: RECOMMENDATIONS: 1. Continue to wean FiO2 to maintain oxygen saturations at or above 90%. 2. Continue Decadron to complete 10-day treatment course. 3. Continue baricitinib per ID recommendations. 4. Continue Lovenox as ordered. 5. Encourage incentive spirometer use and mobilize patient as tolerated. 6. Intermittent use of diuretics can be entertained to maintain euvolemic state. IMPRESSIONS: 1. Acute hypoxic respiratory failure secondary to COVID-19 pneumonia The patient has completed a treatment course of remdesivir overall remain on Decadron to complete 10 days of therapy. In addition, she will be continued on meropenem per ID recommendations. Plan to continue to wean supplemental oxygen as tolerated. Continue diuretic therapy as tolerated by hemodynamics and renal function. Continue Lovenox. 2. Advanced age/poor primary care/poor insight Complicates care, management, recovery and prognosis. This note was generated with [employer] dictation software. It may contain incorrect words, spelling, and punctuation that were not noted in checking the note before signing. Subjective Subjective The patient was seen and examined at the bedside this morning. Events from the last 24 hours have been reviewed. The patient is currently afebrile, hemodynamically stable and maintaining appropriate oxygen saturations on Airvo heated high flow with an FiO2 requirement of 86%. The patient is currently documented to be overall net +4.6 L for the hospital admission. She remains on Decadron, Lovenox and baricitinib. Objective Data Objective Data The patient's most recent lab work, culture data and imaging studies have all been personally reviewed. Rapid coronavirus antigen testing was positive on July 12. Vital Signs: Vital Signs Temp Pulse Resp BP Pulse Ox 98.1 F 89 24 H 106/71 90 07/23/21 09:52 07/23/21 12:35 07/23/21 10:52 07/23/21 12:35 07/23/21 10:52 Oxygen Flow Rate (L/min) 59 Oxygen Delivery Method Airvo Weight: 106.776 kg Body Mass Index (BMI) 47.5 Intake & Output: Intake and Output for Last 24 Hours 07/21/21 07/22/21 07/23/21 23:59 23:59 23:59 Intake Total 1999 / 2299 1650 / 1650 Output Total 1300 / 1300 100 / 100 450 / 450 Balance 700 / 1000 1550 / 1550 -450 / -450 Lab / Micro Data Attestation: I reviewed the patient's lab results. Result Diagrams: 07/21/21 07:38 07/21/21 07:38 Labs: Laboratory Results - last 24 hr 07/19/21 07:53: Diff Path Review Reviewed 07/20/21 08:26: Diff Path Review Reviewed Micro: Microbiology 07/13/21 21:57 Blood Culture (Wb) - Left Hand Blood Culture - Final No growth in 5 days. 07/13/21 21:41 Blood Culture (Wb) - Anticubital Left Blood Culture - Final No growth in 5 days. 07/14/21 06:25 Sputum, Expectorated/Coughed Gram Stain - Final 07/14/21 06:25 Sputum, Expectorated/Coughed Respiratory Culture - Final 07/13/21 21:41 Nasal Secretion SARS-CoV-2 Antigen (Rapid) - Final SARS-CoV-2 (COVID 19) Physical Exam Const alert and no apparent distress General Appearance: cooperative HEENT normocephalic and head/scalp atraumatic Eyes PERRL, EOMs intact bilaterally and conjunctivae normal Neck supple General: trachea midline Chest inspection of chest normal Resp Auscultation: diminished lung sounds; Negative for rales, rhonchi or wheezes Cardio regular rate and regular rhythm GI normal to inspection, nondistended, normoactive bowel sounds Extremity General Extremity: edema bilateral lower extremity; Negative for clubbing Skin no rashes or lesions noted Neuro no focal motor deficits Psych Mood & Affect: anxious Charges/Coding Visit Charges Inpatient E&M: 06928 Subs Hosp L3
--- NOTE | 2021-07-23 18:18 | PCM.PN.HOSP ---
Subjective Subjective Patient was seen and examined today, she remains on Airvo, she does not complain of any shortness of breath at rest. Objective Data Objective Data Vital Signs: Vital Signs Temp Pulse Resp BP Pulse Ox 97.9 F 81 20 H 116/80 93 07/23/21 16:26 07/23/21 16:26 07/23/21 16:26 07/23/21 16:26 07/23/21 16:26 Oxygen Flow Rate (L/min) 59 Oxygen Delivery Method Airvo Weight: 106.776 kg Body Mass Index (BMI) 47.5 Intake & Output: Intake and Output for Last 24 Hours 07/21/21 07/22/21 07/23/21 23:59 23:59 23:59 Intake Total 2000 / 2300 1650 / 1650 Output Total 1300 / 1300 100 / 100 450 / 450 Balance 700 / 1000 1550 / 1550 -450 / -450 Lab / Micro Data Result Diagrams: 07/21/21 07:38 07/21/21 07:38 Micro: Microbiology 07/13/21 21:41 Blood Culture (Wb) - Anticubital Left Blood Culture - Final No growth in 5 days. 07/13/21 21:57 Blood Culture (Wb) - Left Hand Blood Culture - Final No growth in 5 days. 07/14/21 06:25 Sputum, Expectorated/Coughed Gram Stain - Final 07/14/21 06:25 Sputum, Expectorated/Coughed Respiratory Culture - Final 07/13/21 21:41 Nasal Secretion SARS-CoV-2 Antigen (Rapid) - Final SARS-CoV-2 (COVID 19) Physical Exam Const alert, oriented x3, no apparent distress and healthy appearing General Appearance: cooperative, well kempt and well developed Orientation / Consciousness: awake, oriented to person, oriented to place and oriented to time HEENT normocephalic and moist oral mucous membranes Eyes PERRL, EOMs intact bilaterally and conjunctivae normal Neck nuchal rigidity, supple, no JVD, thyroid normal and no carotid bruits General: trachea midline Resp normal respiratory effort, no retractions, no use of accessory muscles and clear to auscultation bilaterally Auscultation: Negative for rales, rhonchi or wheezes Cardio S1 normal heart sound, S2 normal heart sound, no murmurs, no rub and no gallops Cardio Narrative: Heart rate and rhythm irregular GI normal to inspection, nondistended, normoactive bowel sounds, soft to palpation, non-tender and non-distended Extremity no clubbing, cyanosis or edema Skin no rashes or lesions noted General Skin Exam: no breakdown Neuro oriented x3, CN's II-XII intact bilaterally, no focal motor deficits and no sensory deficits noted Sensorium / Orientation: awake and alert Speech: speech normal Psych thought process normal and affect normal Assessment & Plan Assessment/Plan (1) Pneumonia due to 2019-nCoV: PLAN: 1. COVID-19 pneumonia-patient is currently on dexamethasone (07/24/21 is her 10th dose) and baricitinib. She is being seen by infectious diseases. Patient finished her remdesivir, pulmonary medicine is participating in her care #2 acute hypoxic respiratory failure-pulmonary medicine is participating in her care, no changes at this time #3 new onset A. fib-continue full anticoagulation Prognosis remains guarded at this time Charges/Coding Visit Charges Inpatient E&M: 59605 Subs Hosp L2
[2021-07-23] MEDS: 0.9% Saline Lock 10 ML Syringe IV (20:24)
[2021-07-24] VITALS (10 sets, daily range): BP systolic 125–137; BP diastolic 74–86; PULSE 53–69; RESP 18–24; TEMP 36.6–36.8; O2SAT 90–94
[2021-07-24] MEDS: Enoxaparin 120 MG/0.8 ML Syringe 110 MG SC ×2 (08:43→21:31)
[2021-07-24] MEDS: dexAMETHasone 4 MG Tablet 6 MG PO (08:44)
[2021-07-24] MEDS: QUEtiapine 25 MG Tablet PO ×2 (08:44→21:31)
[2021-07-24] MEDS: guaiFENesin 1,200 MG Tablet 1200 MG PO ×2 (08:44→21:31)
[2021-07-24] MEDS: dilTIAZem 60 MG Tablet PO ×2 (11:50→17:20)
--- NOTE | 2021-07-24 19:05 | PCM.PN.HOSP ---
Subjective Subjective Patient was seen and examined today, she remains on Airvo, she appears comfortable at rest, she question whether she could get up and take shower and I told her that she would not be able to as long she was on high flow oxygen. Objective Data Objective Data Vital Signs: Vital Signs Temp Pulse Resp BP Pulse Ox 98.2 F 67 20 H 125/79 H 92 07/24/21 17:20 07/24/21 17:20 07/24/21 17:20 07/24/21 17:20 07/24/21 17:20 Oxygen Flow Rate (L/min) 60 Oxygen Delivery Method Airvo Weight: 106.1 kg Body Mass Index (BMI) 47.5 Intake & Output: Intake and Output for Last 24 Hours 07/22/21 07/23/21 07/24/21 23:59 23:59 23:59 Intake Total 1650 / 1650 760 / 760 Output Total 100 / 100 700 / 700 Balance 1550 / 1550 -700 / -700 760 / 760 Lab / Micro Data Result Diagrams: 07/21/21 07:38 07/21/21 07:38 Micro: Microbiology 07/13/21 21:41 Blood Culture (Wb) - Anticubital Left Blood Culture - Final No growth in 5 days. 07/13/21 21:57 Blood Culture (Wb) - Left Hand Blood Culture - Final No growth in 5 days. 07/14/21 06:25 Sputum, Expectorated/Coughed Gram Stain - Final 07/14/21 06:25 Sputum, Expectorated/Coughed Respiratory Culture - Final 07/13/21 21:41 Nasal Secretion SARS-CoV-2 Antigen (Rapid) - Final SARS-CoV-2 (COVID 19) Physical Exam Narrative alert, oriented x3, no apparent distress and healthy appearing General Appearance: cooperative, well kempt and well developed Orientation / Consciousness: awake, oriented to person, oriented to place and oriented to time HEENT normocephalic and moist oral mucous membranes Eyes PERRL, EOMs intact bilaterally and conjunctivae normal Neck nuchal rigidity, supple, no JVD, thyroid normal and no carotid bruits General: trachea midline Resp normal respiratory effort, no retractions, no use of accessory muscles and clear to auscultation bilaterally Auscultation: Negative for rales, rhonchi or wheezes Cardio S1 normal heart sound, S2 normal heart sound, no murmurs, no rub and no gallops Cardio Narrative: Heart rate and rhythm irregular GI normal to inspection, nondistended, normoactive bowel sounds, soft to palpation, non-tender and non-distended Extremity no clubbing, cyanosis or edema Skin no rashes or lesions noted General Skin Exam: no breakdown Neuro oriented x3, CN's II-XII intact bilaterally, no focal motor deficits and no sensory deficits noted Sensorium / Orientation: awake and alert Speech: speech normal Psych thought process normal and affect normal Assessment & Plan Assessment/Plan (1) Acute respiratory failure with hypoxia: (2) Pneumonia due to 2019-nCoV: PLAN: 1. COVID-19 pneumonia-patient is currently on dexamethasone (07/24/21 is her 10th dose) and baricitinib. She is being seen by infectious diseases. Patient finished her remdesivir, pulmonary medicine is participating in her care. #2 acute hypoxic respiratory failure-pulmonary medicine is participating in her care, no changes at this time #3 new onset A. fib-continue full anticoagulation, I will change her immediate release Cardizem to Cardizem CD Prognosis remains guarded at this time Charges/Coding Visit Charges Inpatient E&M: 85721 Subs Hosp L2
[2021-07-25] VITALS (13 sets, daily range): BP systolic 123–145; BP diastolic 68–79; PULSE 54–78; RESP 18–24; TEMP 36.5–37.1; O2SAT 90–93
[2021-07-25] MEDS: dexAMETHasone 4 MG Tablet 6 MG PO (08:07)
[2021-07-25] MEDS: Enoxaparin 120 MG/0.8 ML Syringe 110 MG SC ×2 (08:07→20:14)
[2021-07-25] MEDS: Potassium Chloride Oral Tablet 20 MEQ PO (08:08)
[2021-07-25] MEDS: Furosemide 40 MG Tablet PO (08:08)
[2021-07-25] MEDS: guaiFENesin 1,200 MG Tablet 1200 MG PO ×2 (08:08→20:14)
[2021-07-25] MEDS: dilTIAZem CD 240 MG Capsule PO (08:08)
[2021-07-25] MEDS: QUEtiapine 25 MG Tablet PO ×2 (08:08→20:14)
--- NOTE | 2021-07-25 18:57 | PCM.PN.HOSP ---
Subjective Subjective Patient was seen and examined today, she remains on Airvo at this time, she does not appear short of breath and has no complaints of chest discomfort. I stop the patient's dexamethasone today, she has received 10 days of treatment. Objective Data Objective Data Vital Signs: Vital Signs Temp Pulse Resp BP Pulse Ox 98.2 F 71 20 H 128/74 H 92 07/25/21 16:22 07/25/21 16:22 07/25/21 18:09 07/25/21 16:22 07/25/21 16:22 Oxygen Flow Rate (L/min) 60 Oxygen Delivery Method Airvo Weight: 107.8 kg Body Mass Index (BMI) 47.5 Intake & Output: Intake and Output for Last 24 Hours 07/23/21 07/24/21 07/25/21 23:59 23:59 23:59 Intake Total 760 / 760 1500 / 1500 Output Total 700 / 700 300 / 300 Balance -700 / -700 460 / 460 1500 / 1500 Lab / Micro Data Result Diagrams: 07/21/21 07:38 07/21/21 07:38 Micro: Microbiology 07/13/21 21:41 Blood Culture (Wb) - Anticubital Left Blood Culture - Final No growth in 5 days. 07/13/21 21:57 Blood Culture (Wb) - Left Hand Blood Culture - Final No growth in 5 days. 07/14/21 06:25 Sputum, Expectorated/Coughed Gram Stain - Final 07/14/21 06:25 Sputum, Expectorated/Coughed Respiratory Culture - Final 07/13/21 21:41 Nasal Secretion SARS-CoV-2 Antigen (Rapid) - Final SARS-CoV-2 (COVID 19) Physical Exam Narrative alert, oriented x3, no apparent distress and healthy appearing General Appearance: cooperative, well kempt and well developed Orientation / Consciousness: awake, oriented to person, oriented to place and oriented to time HEENT normocephalic and moist oral mucous membranes Eyes PERRL, EOMs intact bilaterally and conjunctivae normal Neck nuchal rigidity, supple, no JVD, thyroid normal and no carotid bruits General: trachea midline Resp normal respiratory effort, no retractions, no use of accessory muscles and clear to auscultation bilaterally Auscultation: Negative for rales, rhonchi or wheezes Cardio S1 normal heart sound, S2 normal heart sound, no murmurs, no rub and no gallops Cardio Narrative: Heart rate and rhythm irregular GI normal to inspection, nondistended, normoactive bowel sounds, soft to palpation, non-tender and non-distended Extremity no clubbing, cyanosis or edema Skin no rashes or lesions noted General Skin Exam: no breakdown Neuro oriented x3, CN's II-XII intact bilaterally, no focal motor deficits and no sensory deficits noted Sensorium / Orientation: awake and alert Speech: speech normal Psych thought process normal and affect normal Assessment & Plan Assessment/Plan (1) Pneumonia due to 2019-nCoV: (2) Acute respiratory failure with hypoxia: PLAN: 1. COVID-19 pneumonia-patient is currently on baricitinib. She is being seen by infectious diseases. Patient finished her remdesivir and dexamethasone, pulmonary medicine is participating in her care. #2 acute hypoxic respiratory failure-pulmonary medicine is participating in her care, no changes at this time #3 new onset A. fib-continue full anticoagulation Prognosis remains guarded at this time Charges/Coding Visit Charges Inpatient E&M: 48511 Subs Hosp L2
[2021-07-26] VITALS (11 sets, daily range): BP systolic 124–140; BP diastolic 68–85; PULSE 56–92; RESP 18–20; TEMP 36.5–37.3; O2SAT 88–94
[2021-07-26] MEDS: Enoxaparin 120 MG/0.8 ML Syringe 110 MG SC ×2 (08:21→20:42)
[2021-07-26] MEDS: dilTIAZem CD 240 MG Capsule PO (08:22)
[2021-07-26] MEDS: guaiFENesin 1,200 MG Tablet 1200 MG PO ×2 (08:22→20:42)
[2021-07-26] MEDS: Furosemide 40 MG Tablet PO (08:22)
[2021-07-26] MEDS: QUEtiapine 25 MG Tablet PO ×2 (08:24→20:42)
[2021-07-26] MEDS: Potassium Chloride Oral Tablet 20 MEQ PO (08:24)
[2021-07-26 13:24] LABS: Anion Gap 6 (5-15); BUN 37 mg/dL (7-18); BUN/Creat Ratio 44.5 RATIO (10-20); Calcium,Total 8.2 mg/dL (8.5-10.1); Chloride 102 mmol/L (98-107); Creatinine, Serum 0.83 mg/dL (0.55-1.02); EST Glomerular Filtration Rate 72 mL/min (>60); Est Glom Filt Rate - Afr Amer 87 mL/min (>60); Estimated Creatinine Clearance 43.36 ml/min; Glucose 138 mg/dL (74-106); Potassium 3.9 mmol/L (3.5-5.1); Sodium Level 136 mmol/L (136-145)
--- NOTE | 2021-07-26 15:46 | CASEMGMT ---
Social Work Note SW in to speak with pt to provide support. Pt has been at [facility] for 12 days and is currently on Airvo. SW introduced self and role at [facility]. Pt is alert and orientated, engages appropriately in conversation with this worker. Pt states that she is doing good, states that she is 71 years old and has never been in a hospital up until now. SW offered support to pt. Pt states that she feels supportive and has a good support system through family and friends. Pt asked this worker about a bill for pt's hospital stay. SW explained that this worker doesn't know if she will get a bill or not, just depends on pt's policy and deductible. SW informed pt that if she does get a bill for hospital stay then she can reach out to billing/patient financial services to set up a payment plan. Pt states understanding. Pt denied additional needs or concerns at this time. SW offered much support to pt during conversation. Pt engaged appropriately in conversation and maintained appropriate eye contact. Sangeetha Brody SELF DEFENSE INSTRUCTOR, FENCE INSTALLER HELPER
--- NOTE | 2021-07-26 18:27 | PCM.PN.HOSP ---
Subjective Subjective Patient was seen and examined today, she remains on Airvo at this time, she does not appear short of breath at rest. Objective Data Objective Data Vital Signs: Vital Signs Temp Pulse Resp BP Pulse Ox 99.2 F H 71 20 H 127/84 H 94 07/26/21 17:33 07/26/21 17:33 07/26/21 17:33 07/26/21 17:33 07/26/21 17:33 Oxygen Flow Rate (L/min) 60 Oxygen Delivery Method Non-Rebreather Weight: 106.6 kg Body Mass Index (BMI) 47.5 Intake & Output: Intake and Output for Last 24 Hours 07/24/21 07/25/21 07/26/21 23:59 23:59 23:59 Intake Total 760 / 760 1500 / 1500 1500 / 1500 Output Total 300 / 300 500 / 500 Balance 460 / 460 1500 / 1500 1000 / 1000 Lab / Micro Data Result Diagrams: 07/21/21 07:38 07/26/21 12:23 Labs: Laboratory Results - last 24 hr 07/26/21 12:23: Sodium 136, Potassium 3.9, Chloride 102, Carbon Dioxide 28.0, Anion Gap 6, BUN 37 H, Creatinine 0.83, Estim Creat Clear Calc 43.36, Est GFR (MDRD) Af Amer 87, Est GFR (MDRD) Non-Af 72, BUN/Creatinine Ratio 44.5 H, Glucose 138 H, Calcium 8.2 L Micro: Microbiology 07/13/21 21:41 Blood Culture (Wb) - Anticubital Left Blood Culture - Final No growth in 5 days. 07/13/21 21:57 Blood Culture (Wb) - Left Hand Blood Culture - Final No growth in 5 days. 07/14/21 06:25 Sputum, Expectorated/Coughed Gram Stain - Final 07/14/21 06:25 Sputum, Expectorated/Coughed Respiratory Culture - Final 07/13/21 21:41 Nasal Secretion SARS-CoV-2 Antigen (Rapid) - Final SARS-CoV-2 (COVID 19) Physical Exam Const alert, oriented x3 and no apparent distress General Appearance: cooperative, well kempt and well developed Orientation / Consciousness: awake, oriented to person, oriented to place and oriented to time Nutritional Appearance: morbidly obese HEENT normocephalic, head/scalp atraumatic and moist oral mucous membranes Head and Scalp: normocephalic Eyes PERRL, EOMs intact bilaterally and conjunctivae normal Neck nuchal rigidity, supple, no JVD, thyroid normal and no carotid bruits General: trachea midline Resp normal respiratory effort, no retractions, no use of accessory muscles and clear to auscultation bilaterally Auscultation: Negative for rales, rhonchi or wheezes Cardio no murmurs, no rub and no gallops Cardio Narrative: Heart rate and rhythm was irregular GI normal to inspection, nondistended, normoactive bowel sounds, soft to palpation, non-tender and non-distended GI Narrative: Patient is morbidly obese Extremity no clubbing, cyanosis or edema Skin no rashes or lesions noted General Skin Exam: no breakdown Neuro oriented x3, CN's II-XII intact bilaterally, no focal motor deficits and no sensory deficits noted Sensorium / Orientation: awake and alert Speech: speech normal Psych thought process normal and affect normal Assessment & Plan Assessment/Plan (1) Acute respiratory failure with hypoxia: (2) Pneumonia due to 2019-nCoV: PLAN: 1. COVID-19 pneumonia-patient is currently on baricitinib. She is being seen by infectious diseases. Patient finished her remdesivir and dexamethasone, pulmonary medicine is participating in her care. She remains on Lasix p.o. daily. #2 acute hypoxic respiratory failure-pulmonary medicine is participating in her care, no changes at this time #3 new onset A. fib-continue full anticoagulation Prognosis remains guarded at this time Charges/Coding Visit Charges Inpatient E&M: 39114 Subs Hosp L2
[2021-07-26] MEDS: Acetaminophen 325 MG Tablet 650 MG PO (20:43)
[2021-07-27] VITALS (10 sets, daily range): BP systolic 111–117; BP diastolic 59–80; PULSE 58–82; RESP 18–24; TEMP 36.1–37.2; O2SAT 80–95
[2021-07-27] MEDS: Enoxaparin 120 MG/0.8 ML Syringe 110 MG SC ×2 (08:30→21:18)
[2021-07-27] MEDS: QUEtiapine 25 MG Tablet PO ×2 (08:31→21:19)
[2021-07-27] MEDS: Potassium Chloride Oral Tablet 20 MEQ PO (08:32)
[2021-07-27] MEDS: Furosemide 40 MG Tablet PO (08:33)
[2021-07-27] MEDS: guaiFENesin 1,200 MG Tablet 1200 MG PO ×2 (08:33→21:18)
[2021-07-27] MEDS: dilTIAZem CD 240 MG Capsule PO (08:33)
--- NOTE | 2021-07-27 17:14 | PN.HOSP_ITS ---
Subjective Subjective Patient was seen and examined today, she remains on Airvo at this time. Patient states she is coughing up thick mucus. I will order aerosol treatments for the patient. Patient can come out of respiratory isolation today. Objective Data Objective Data Vital Signs: Vital Signs Temp Pulse Resp BP Pulse Ox 99.0 F 70 20 H 114/59 L 94 07/27/21 15:22 07/27/21 15:22 07/27/21 15:22 07/27/21 15:22 07/27/21 15:22 Oxygen Flow Rate (L/min) 60 Oxygen Delivery Method Airvo Weight: 109.1 kg Body Mass Index (BMI) 47.5 Intake & Output: Intake and Output for Last 24 Hours 07/25/21 07/26/21 07/27/21 23:59 23:59 23:59 Intake Total 1500 / 1500 1500 / 1500 Output Total 700 / 700 150 / 150 Balance 1500 / 1500 800 / 800 -150 / -150 Lab / Micro Data Result Diagrams: 07/21/21 07:38 07/26/21 12:23 Micro: Microbiology 07/13/21 21:41 Blood Culture (Wb) - Anticubital Left Blood Culture - Final No growth in 5 days. 07/13/21 21:57 Blood Culture (Wb) - Left Hand Blood Culture - Final No growth in 5 days. 07/14/21 06:25 Sputum, Expectorated/Coughed Gram Stain - Final 07/14/21 06:25 Sputum, Expectorated/Coughed Respiratory Culture - Final 07/13/21 21:41 Nasal Secretion SARS-CoV-2 Antigen (Rapid) - Final SARS-CoV-2 (COVID 19) Physical Exam Const alert, oriented x3, no apparent distress and healthy appearing General Appearance: cooperative, well kempt and well developed Orientation / Consciousness: awake, oriented to person, oriented to place and oriented to time HEENT normocephalic, head/scalp atraumatic and moist oral mucous membranes Head and Scalp: normocephalic Eyes PERRL, EOMs intact bilaterally and conjunctivae normal Neck nuchal rigidity, supple, no JVD, thyroid normal and no carotid bruits General: trachea midline Resp normal respiratory effort, no retractions, no use of accessory muscles and clear to auscultation bilaterally Auscultation: Negative for rales, rhonchi or wheezes Cardio S1 normal heart sound, S2 normal heart sound, no murmurs, no rub and no gallops Cardio Narrative: Heart rate and rhythm is irregular GI normal to inspection, nondistended, normoactive bowel sounds, soft to palpation, non-tender and non-distended Extremity normal to inspection and no clubbing, cyanosis or edema Skin no rashes or lesions noted, no wounds and skin turgor normal General Skin Exam: no breakdown Neuro oriented x3, CN's II-XII intact bilaterally, no focal motor deficits and no s ensory deficits noted Sensorium / Orientation: awake and alert Speech: speech normal Psych thought process normal and affect normal Assessment & Plan Assessment/Plan (1) Acute respiratory failure with hypoxia: (2) Pneumonia due to 2019-nCoV: PLAN: 1. COVID-19 pneumonia-patient is currently on baricitinib. She is being seen by infectious diseases. Patient finished her remdesivir and dexamethasone, pulmonary medicine is participating in her care. She remains on Lasix p.o. daily. Patient can come out of isolation today. I have decided to place the patient on albuterol aerosol treatments #2 acute hypoxic respiratory failure-pulmonary medicine is participating in her care, no changes at this time #3 new onset A. fib-continue full anticoagulation Prognosis remains guarded at this time Charges/Coding Visit Charges Inpatient E&M: 16904 Subs Hosp L2
[2021-07-27] MEDS: Albuterol 2.5 MG/3 ML VIAL.NEB. INHALATION (19:26)
[2021-07-28] VITALS (16 sets, daily range): BP systolic 97–125; BP diastolic 60–78; PULSE 70–90; RESP 18–32; TEMP 36.5–37.2; O2SAT 83–93
[2021-07-28] MEDS: Albuterol 2.5 MG/3 ML VIAL.NEB. INHALATION ×3 (06:57→18:55)
--- NOTE | 2021-07-28 07:48 | PN.CC_ITS ---
Assessment & Plan Assessment/Plan (1) Acute respiratory failure with hypoxia: (2) Pneumonia due to 2019-nCoV: (3) Generalized weakness: PLAN: RECOMMENDATIONS: 1. Continue to wean FiO2 to maintain oxygen saturations at or above 90%. 2. Continue baricitinib per ID recommendations. 3. Continue Lovenox as ordered. 4. Encourage incentive spirometer use and mobilize patient as tolerated. 5. Change from p.o. to IV Lasix today for further volume optimization. IMPRESSIONS: 1. Acute hypoxic respiratory failure secondary to COVID-19 pneumonia The patient has completed a treatment course of remdesivir and Decadron. Her oxygen status remains quite tenuous. Attempts to utilize BiPAP therapy were unsuccessful and the patient is now refusing any form of PAP therapy. The patient will be continued on baricitinib to complete her treatment course along with therapeutic Lovenox. I would recommend that we more aggressively attempt to diurese her today. Continue to encourage incentive spirometer use and mobilize patient as tolerated. 2. Advanced age/poor primary care/poor insight Complicates care, management, recovery and prognosis. This note was generated with [employer] dictation software. It may contain incorrect words, spelling, and punctuation that were not noted in checking the note before signing. Subjective Subjective The patient was seen and examined at the bedside this morning. Events from the last 24 hours have been reviewed. The patient is currently afebrile, hemodynamically stable and maintaining appropriate oxygen saturations on Airvo heated high flow with an FiO2 requirement of 90% and flow rate of 60 L/min. The patient is documented to be overall net +7.8 L for the hospital admission. She remains on therapeutic Lovenox, baricitinib and Lasix. The patient is quite anxious this morning. We did attempt to place her on BiPAP therapy, which was unsuccessful. The patient is now refusing to consider PAP therapy. Objective Data Objective Data The patient's most recent lab work, culture data and imaging studies have all b caylan personally reviewed. Rapid coronavirus antigen testing was positive on July 12. Vital Signs: Vital Signs Temp Pulse Resp BP Pulse Ox 98.1 F 83 28 H 99/67 89 07/28/21 04:28 07/28/21 06:59 07/28/21 06:59 07/28/21 04:28 07/28/21 06:59 Oxygen Flow Rate (L/min) 60 Oxygen Delivery Method Airvo Weight: 109.1 kg Body Mass Index (BMI) 47.5 Intake & Output: Intake and Output for Last 24 Hours 07/26/21 07/27/21 07/28/21 23:59 23:59 23:59 Intake Total 1500 / 1500 300 / 300 500 / 500 Output Total 700 / 700 150 / 150 Balance 800 / 800 150 / 150 500 / 500 Lab / Micro Data Attestation: I reviewed the patient's lab results. Result Diagrams: 07/21/21 07:38 07/26/21 12:23 Micro: Microbiology 07/13/21 21:41 Blood Culture (Wb) - Anticubital Left Blood Culture - Final No growth in 5 days. 07/13/21 21:57 Blood Culture (Wb) - Left Hand Blood Culture - Final No growth in 5 days. 07/14/21 06:25 Sputum, Expectorated/Coughed Gram Stain - Final 07/14/21 06:25 Sputum, Expectorated/Coughed Respiratory Culture - Final 07/13/21 21:41 Nasal Secretion SARS-CoV-2 Antigen (Rapid) - Final SARS-CoV-2 (COVID 19) Physical Exam Const alert General Appearance: cooperative and anxious Nutritional Appearance: morbidly obese HEENT normocephalic and head/scalp atraumatic Eyes PERRL, EOMs intact bilaterally and conjunctivae normal Neck supple General: trachea midline Chest inspection of chest normal Resp Effort and Inspection: tachypneic and labored Auscultation: diminished lung sounds; Negative for rales, rhonchi or wheezes Cardio regular rate and regular rhythm GI normal to inspection, nondistended, normoactive bowel sounds Extremity General Extremity: edema bilateral lower extremity; Negative for clubbing Skin no rashes or lesions noted Neuro no focal motor deficits Psych Mood & Affect: anxious Charges/Coding Visit Charges Inpatient E&M: 49447 Subs Hosp L3
[2021-07-28] MEDS: Enoxaparin 120 MG/0.8 ML Syringe 110 MG SC (08:32)
[2021-07-28] MEDS: dilTIAZem CD 240 MG Capsule PO (08:32)
[2021-07-28] MEDS: QUEtiapine 25 MG Tablet PO ×2 (08:33→20:30)
[2021-07-28] MEDS: Furosemide 40 MG Tablet PO (08:33)
[2021-07-28] MEDS: Potassium Chloride Oral Tablet 20 MEQ PO (08:33)
[2021-07-28] MEDS: guaiFENesin 1,200 MG Tablet 1200 MG PO ×2 (08:33→20:31)
[2021-07-28] MEDS: 0.9% Saline Lock 10 ML Syringe IV ×2 (11:03→20:32)
--- NOTE | 2021-07-28 17:53 | PCM.PN.HOSP ---
Subjective Subjective Patient was seen and examined today, she remains on Airvo at this time, I talked briefly with pulmonary medicine about her care. I will change the patient to Eliquis for anticoagulation and stop her Lovenox. Patient had a brief fainting episode when she stood up today after walking a short distance, her daughter in the room stated that the patient has had these episodes since she was young. Pulmonary medicine asked me to put the patient on IV Lasix to see if diuresing the patient would help with her oxygen requirement. I placed the patient on IV Lasix today. Objective Data Objective Data Vital Signs: Vital Signs Temp Pulse Resp BP Pulse Ox 98.9 F 78 20 H 125/70 H 88 07/28/21 17:00 07/28/21 17:00 07/28/21 17:00 07/28/21 17:00 07/28/21 17:00 Oxygen Flow Rate (L/min) 84 Oxygen Delivery Method Airvo Weight: 106.7 kg Body Mass Index (BMI) 47.5 Intake & Output: Intake and Output for Last 24 Hours 07/26/21 07/27/21 07/28/21 23:59 23:59 23:59 Intake Total 1500 / 1500 300 / 300 500 / 500 Output Total 700 / 700 150 / 150 200 / 200 Balance 800 / 800 150 / 150 300 / 300 Lab / Micro Data Result Diagrams: 07/21/21 07:38 07/26/21 12:23 Micro: Microbiology 07/13/21 21:41 Blood Culture (Wb) - Anticubital Left Blood Culture - Final No growth in 5 days. 07/13/21 21:57 Blood Culture (Wb) - Left Hand Blood Culture - Final No growth in 5 days. 07/14/21 06:25 Sputum, Expectorated/Coughed Gram Stain - Final 07/14/21 06:25 Sputum, Expectorated/Coughed Respiratory Culture - Final 07/13/21 21:41 Nasal Secretion SARS-CoV-2 Antigen (Rapid) - Final SARS-CoV-2 (COVID 19) Physical Exam Const alert, oriented x3 and no apparent distress General Appearance: cooperative, well kempt and well developed Orientation / Consciousness: awake, oriented to person, oriented to place and oriented to time Nutritional Appearance: morbidly obese HEENT normocephalic and moist oral mucous membranes Eyes PERRL, EOMs intact bilaterally and conjunctivae normal Neck nuchal rigidity, supple, no JVD, thyroid normal and no carotid bruits General: trachea midline Resp normal respiratory effort, no retractions, no use of accessory muscles and clear to auscultation bilaterally Auscultation: Negative for rales, rhonchi or wheezes Cardio S1 normal heart sound, S2 normal heart sound, no murmurs, no rub and no gallops Cardio Narrative: Heart rate and rhythm is irregular GI normal to inspection, nondistended, normoactive bowel sounds, soft to palpation, non-tender and non-distended Extremity no clubbing, cyanosis or edema Skin no rashes or lesions noted General Skin Exam: no breakdown Neuro oriented x3, CN's II-XII intact bilaterally, no focal motor deficits and no sensory deficits noted Sensorium / Orientation: awake and alert Speech: speech normal Psych thought process normal and affect normal Assessment & Plan Assessment/Plan (1) Pneumonia due to 2019-nCoV: (2) Acute respiratory failure with hypoxia: PLAN: 1. COVID-19 pneumonia-patient is currently on baricitinib. She is being seen by infectious diseases. Patient finished her remdesivir and dexamethasone, pulmonary medicine is participating in her care. I placed the patient on IV Lasix 20 mg every 8 hours, patient remains on aerosol treatments #2 acute hypoxic respiratory failure-pulmonary medicine is participating in her care, no changes at this time #3 new onset A. fib-continue full anticoagulation, I placed the patient on Eliquis 5 mg twice daily starting today Prognosis remains guarded at this time Charges/Coding Visit Charges Inpatient E&M: 63277 Subs Hosp L2
--- NOTE | 2021-07-28 19:07 | CPS ---
talked with patient about wearing BIPAP but she says she can't tolerate it strapped to her head so she doesn't want to wear it. R.T. pulled PAP machine from room.
[2021-07-28] MEDS: MELATONIN 3 MG TABLET PO (20:30)
[2021-07-28] MEDS: APIXABAN 5 MG TABLET PO (20:31)
[2021-07-28] MEDS: Furosemide 20 MG/2 ML VIAL IV (20:32)
[2021-07-29] VITALS (10 sets, daily range): BP systolic 98–109; BP diastolic 62–73; PULSE 75–89; RESP 19–36; TEMP 36.6–37.1; O2SAT 84–89
[2021-07-29] MEDS: Albuterol 2.5 MG/3 ML VIAL.NEB. INHALATION (07:19)
[2021-07-29 08:58] LABS: Anion Gap 11 (5-15); BUN 44 mg/dL (7-18); BUN/Creat Ratio 59.5 RATIO (10-20); Calcium,Total 7.8 mg/dL (8.5-10.1); Chloride 99 mmol/L (98-107); Creatinine, Serum 0.74 mg/dL (0.55-1.02); EST Glomerular Filtration Rate 82 mL/min (>60); Est Glom Filt Rate - Afr Amer 99 mL/min (>60); Estimated Creatinine Clearance 35.99 ml/min; Glucose 110 mg/dL (74-106); Magnesium 2.5 mg/dL (1.6-2.6); Phosphorus 3.5 mg/dL (2.5-4.9); Potassium 3.8 mmol/L (3.5-5.1); Sodium Level 136 mmol/L (136-145)
[2021-07-29] MEDS: dilTIAZem CD 240 MG Capsule PO (09:26)
[2021-07-29] MEDS: QUEtiapine 25 MG Tablet PO (09:26)
[2021-07-29] MEDS: APIXABAN 5 MG TABLET PO (09:26)
[2021-07-29] MEDS: Potassium Chloride Oral Tablet 20 MEQ PO (09:27)
[2021-07-29] MEDS: guaiFENesin 1,200 MG Tablet 1200 MG PO (09:27)
[2021-07-29] MEDS: Furosemide 20 MG/2 ML VIAL IV (09:27)
--- NOTE | 2021-07-29 10:35 | EKG12_ITS ---
Test Reason : Blood Pressure : / mmHG Vent. Rate : 090 BPM Atrial Rate : 090 BPM P-R Int : 150 ms QRS Dur : 068 ms QT Int : 362 ms P-R-T Axes : 048 -48 117 degrees QTc Int : 442 ms Sinus rhythm with Premature atrial complexes Left anterior fascicular block ST & T wave abnormality, consider lateral ischemia Abnormal ECG Confirmed by MURPHY CAMPA, GABINO ([id number]), restaurant expeditor MARTIN CHOU ([id number]) on 08/01/2021 8:32:13 AM Referred By: MARLEY Confirmed By:GABINO ARRINGTON MD
--- NOTE | 2021-07-29 10:39 | PCM.PN.INT ---
Assessment & Plan Assessment/Plan (1) Acute respiratory failure with hypoxia: (2) Pneumonia due to 2019-nCoV: (3) Generalized weakness: PLAN: RECOMMENDATIONS: 1. Continue to wean FiO2 to maintain oxygen saturations at or above 90%. 2. Continue baricitinib per ID recommendations. 3. Continue Lovenox as ordered. 4. Encourage incentive spirometer use and mobilize patient as tolerated. 5. Continue IV Lasix today for further volume optimization. 6. Call family the bedside 7. Obtain EKG. Haldol as needed if QTC less than 450 IMPRESSIONS: 1. Acute hypoxic respiratory failure secondary to COVID-19 pneumonia The patient has completed a treatment course of remdesivir and Decadron. Her oxygen status remains quite tenuous. Attempts to utilize BiPAP therapy were unsuccessful and the patient is now refusing any form of PAP therapy. The patient will be continued on baricitinib to complete her treatment course along with therapeutic Lovenox. Continue with aggressive diuresis. Patient continues to desaturate despite BiPAP therapy. Given patient's CODE STATUS to DNR Comfort Care arrest without intubation, patient's family should likely be called to the bedside. Patient may benefit from palliative measures if hypoxia does not improve with the recruitment of BiPAP. Obtain EKG. Possible Haldol candidate to help with compliance. Poor prognosis if patient does get intubated given protracted symptoms with significant resistant hypoxia. 2. Advanced age/poor primary care/poor insight Complicates care, management, recovery and prognosis. This note was generated with [employer] dictation software. It may contain incorrect words, spelling, and punctuation that were not noted in checking the note before signing. Subjective Subjective Patient with significant decompensation over the last 24 hours. Patient was saturating in the mid 80s on Airvo this morning. Attempted to transition to BiPAP 100% FiO2, but saturations remained in the 80s. Patient reports dyspnea, but no chest pain. Patient's respiratory effort is improved per nursing. I&O's have been inaccurate secondary to incontinence Objective Data Objective Data Vital Signs: Vital Signs Temp Pulse Resp BP Pulse Ox 36.7 C 88 22 H 98/62 84 07/29/21 08:59 07/29/21 10:15 07/29/21 10:15 07/29/21 08:59 07/29/21 10:15 Oxygen Flow Rate (L/min) 60 Oxygen Delivery Method Bi-pap Weight: 107.1 kg Body Mass Index (BMI) 47.5 Intake & Output: Intake and Output for Last 24 Hours 07/27/21 07/28/21 07/29/21 23:59 23:59 23:59 Intake Total 300 / 300 500 / 600 300 / 300 Output Total 150 / 150 200 / 400 200 / 200 Balance 150 / 150 300 / 200 100 / 100 Lab / Micro Data Result Diagrams: 07/21/21 07:38 07/29/21 07:39 Labs: Laboratory Results - last 24 hr 07/29/21 07:39: Sodium 136, Potassium 3.8, Chloride 99, Carbon Dioxide 26.0, Anion Gap 11, BUN 44 H, Creatinine 0.74, Estim Creat Clear Calc 35.99, Est GFR (MDRD) Af Amer 99, Est GFR (MDRD) Non-Af 82, BUN/Creatinine Ratio 59.5 H, Glucose 110 H, Calcium 7.8 L, Phosphorus 3.5, Magnesium 2.5 Micro: Microbiology 07/13/21 21:41 Blood Culture (Wb) - Anticubital Left Blood Culture - Final No growth in 5 days. 07/13/21 21:57 Blood Culture (Wb) - Left Hand Blood Culture - Final No growth in 5 days. 07/14/21 06:25 Sputum, Expectorated/Coughed Gram Stain - Final 07/14/21 06:25 Sputum, Expectorated/Coughed Respiratory Culture - Final 07/13/21 21:41 Nasal Secretion SARS-CoV-2 Antigen (Rapid) - Final SARS-CoV-2 (COVID 19) Physical Exam Const alert General Appearance: cooperative, anxious and on BiPAP Nutritional Appearance: morbidly obese HEENT normocephalic and head/scalp atraumatic Eyes PERRL, EOMs intact bilaterally and conjunctivae normal Neck supple General: trachea midline Chest inspection of chest normal Chest: symmetrical chest wall rise; Negative for crepitus Resp Effort and Inspection: tachypneic and labored Auscultation: diminished lung sounds; Negative for rales, rhonchi or wheezes Cardio regular rate, regular rhythm, S1 normal heart sound, S2 normal heart sound, no murmurs, no rub and no gallops GI normal to inspection, nondistended, normoactive bowel sounds Extremity General Extremity: edema bilateral lower extremity; Negative for clubbing Skin no rashes or lesions noted Neuro no focal motor deficits Psych Mood & Affect: anxious Charges/Coding Visit Charges Inpatient E&M: 00130 Subs Hosp L3
--- NOTE | 2021-07-29 11:29 | PCM.PN.HOSP ---
Subjective Subjective Oxygen saturations are in the low 80s despite being on maximal air Vo as well as a nonrebreather of her Pap. She refuses intubation and has difficulty keeping her BiPAP on secondary to anxiety from claustrophobia. Objective Data Objective Data Vital Signs: Vital Signs Temp Pulse Resp BP Pulse Ox 98.1 F 89 22 H 98/62 84 07/29/21 08:59 07/29/21 11:17 07/29/21 11:17 07/29/21 08:59 07/29/21 11:17 Oxygen Flow Rate (L/min) 60 Oxygen Delivery Method Bi-pap Weight: 236 lb 1.841 oz Body Mass Index (BMI) 47.5 Intake & Output: Intake and Output for Last 24 Hours 07/28/21 07/29/21 07/30/21 03:59 03:59 03:59 Intake Total 500 / 500 400 / 400 200 / 200 Output Total 150 / 150 400 / 400 Balance 350 / 350 0 / 0 200 / 200 Lab / Micro Data Result Diagrams: 07/21/21 07:38 07/29/21 07:39 Labs: Laboratory Results - last 24 hr 07/29/21 07:39: Sodium 136, Potassium 3.8, Chloride 99, Carbon Dioxide 26.0, Anion Gap 11, BUN 44 H, Creatinine 0.74, Estim Creat Clear Calc 35.99, Est GFR (MDRD) Af Amer 99, Est GFR (MDRD) Non-Af 82, BUN/Creatinine Ratio 59.5 H, Glucose 110 H, Calcium 7.8 L, Phosphorus 3.5, Magnesium 2.5 Micro: Microbiology 07/13/21 21:41 Blood Culture (Wb) - Anticubital Left Blood Culture - Final No growth in 5 days. 07/13/21 21:57 Blood Culture (Wb) - Left Hand Blood Culture - Final No growth in 5 days. 07/14/21 06:25 Sputum, Expectorated/Coughed Gram Stain - Final 07/14/21 06:25 Sputum, Expectorated/Coughed Respiratory Culture - Final 07/13/21 21:41 Nasal Secretion SARS-CoV-2 Antigen (Rapid) - Final SARS-CoV-2 (COVID 19) Physical Exam Const alert, oriented x3 and no apparent distress General Appearance: cooperative HEENT normocephalic Mouth: dry mucous membranes Eyes PERRL, EOMs intact bilaterally and conjunctivae normal Neck supple and no JVD Resp no retractions Effort and Inspection: tachypneic and respiratory distress Auscultation: crackles; Negative for rales, rhonchi or wheezes Cardio regular rate, regular rhythm, S1 normal heart sound, S2 normal heart sound and no murmurs GI soft to palpation, non-tender and non-distended; Negative for hepatosplenomegaly Extremity no clubbing, cyanosis or edema Skin no rashes or lesions noted Neuro no focal motor deficits and no sensory deficits noted Psych affect normal Appearance: appropriate Assessment & Plan Assessment/Plan (1) Pneumonia due to 2019-nCoV: (2) Acute respiratory failure with hypoxia: PLAN: 1. Acute hypoxic respiratory failure secondary to COVID-19 pneumonia -This is day 15 of admission and she is outside of precautions -She has completed Decadron and remdesivir on is currently on baricitinib -She is struggling with keeping on the oxygen, and she is refusing intubation. -She did agree to dose Lasix as well as to try the BiPAP if she can get something for anxiety -I had a 30-minute discussion with her and her daughter on advance care planning, and they are leaning towards hospice care however they are waiting for a son from [place] to arrive. At that point we will remove her oxygen completely and place her under DNR CC with Ativan for some anxiety and potentially morphine for any respiratory distress. 2. New onset A. fib -Continue with Eliquis DVT: Eliquis Charges/Coding Visit Charges Inpatient E&M: 60934 Subs Hosp L2 Procedures Hospitalists Procedures: 78694 Advncd Care Plan 30 Min
[2021-07-29] MEDS: LORazepam 2 MG/ML Syringe 0.5 MG IV (12:51)
--- NOTE | 2021-07-29 14:08 | CHAPLAIN ---
Type of Pastoral Visit _x__ Initial Visit ___ Follow-up Visit ___ On-call Visit ___ General Patient Visit ___ Spiritual Assessment ___ Family Conference ___ Bereavement ___ Rapid Response ___ Code Blue ___ Other (describe below) Pastoral Care Referral From ___ Patient ___ Family _x__ Nurse ___ Physician ___ Binding Stitcher ___ Camera Assembler ___ Other (describe below) Sacrament/Intervention _x__ Active listening ___ Anointing ___ Spiritism ___ Bereavement ___ Communion ___ Delma exploration ___ ___ Life review _x__ Prayer ___ Reconciliation ___ Sacrament of Sick _x__ Supportive presence ___ Wedding ___ Other (describe below) Pastoral Comments DOCUMENTATION CLERK notified this ice cream dispenser that patient will be removed from bi-pap and that family is gathering to be near her at this time; entered pt room to find pt and daughter; daughter is tearful; pt is able to talk through the bi-pap and states that she is ok and that I am ready; conversation and support for pt is given; this ice cream dispenser asks again how pt is doing and if she is ready to which the pt affirms that she is ready and agrees that God is in control; daughter says that pt is a Hindu and pt agrees to prayer at this time; offer of support given to daughter and those other family members that will be arriving later
--- NOTE | 2021-07-29 14:42 | CASEMGMT ---
Addendum entered by Sangeetha Brody 07/29/21 17:19: SW did update computer network specialist that pt's son Vinh is requesting work release form. Original Note: Social Work Note SW updated that pt has decided to not do Bipap and has decided she no longer wants to wear non rebreather. SW in to speak with pt. Pt's children Jennifer, Vinh, and Elroy present at [facility]. [facility]roy currently out [facility]. SW offered support to pt, and pt's children. Pt states she is ok with decision states it is a new beginning and she will get to be reunited with her oldest son. Jennifer states pt's oldest son in 2017. SW offered much supprot to pt and pt's children. SW offered bereavement/grief counseling and pt's children denied. Pt's son Vinh states he will need a work release form, SW informed Vinh that this worker will check on work release form. Pt and pt's children denied additional needs or concerns at this time. Sangeetha Brody PROVER, TOOLING ENGINEER
[2021-07-29] MEDS: LORazepam 2 MG/ML Syringe 1 MG IV ×3 (15:14→18:50)
[2021-07-29] MEDS: Morphine 4 MG/ML Syringe IV ×4 (15:14→18:28)
--- NOTE | 2021-07-29 20:00 | NURSING ---
2000. family requesting that no meds, vitals, or assessment be done on pt, as they would like to be left alone to grieve
--- NOTE | 2021-07-29 20:38 | PCM.PN.BLA ---
Progress Note Notified by nursing team that patient on 07/29/2021 at 2027.
--- NOTE | 2021-07-29 20:46 | EXP.PCM_ITS ---
Preliminary Cause of Preliminary Cause of Preliminary Cause of : Acute hypoxemic respiratory failure secondary to covid-19 pnuemonia Date of Admission: 07/14/21 Principle Diagnosis Problem List: Active and Suspected Problems (Updated 07/14/21 @ 01:[address] Jesus Manuel Carty MD) Acute respiratory failure with hypoxia (Acute) Pneumonia due to 2019-nCoV (Acute) Hypoxemia (Acute) Generalized weakness (Acute) Hospital Course hpi: Patient admitted with 7 days of cold symptoms started with cough, shortness of breath on exertion, weakness, loss of taste and smell, diarrhea. Patient did not had Covid vaccine. She was found hypoxic at home 88% on room air. Elevated D-dimer CTA negative for PE but showed Covid 19 pneumonia Hospital course: Patient was treated with Decadron and remdesivir. She was also started on baricitinib. Patient was followed by hospitalist, elementary summer school teacher and infectious disease specialist. Patient received Lasix therapy. Patient went into atrial fibrillation. Echocardiogram showed normal ejection fraction and small pericardial effusion. She tried BiPAP but she could not tolerate. She continued to have a poor oxygenation with maximum airvo and non-rebreather. Upon family discussion CODE STATUS was changed to DNR comfort care. Patient received morphine IV and Ativan IV for comfort. On 07/29/2021 at 2027 Staff reported that patient . Date of 07/29/2021. Time of :2027 Immediate cause of (final disease of condition resulting in ): Acute hypoxemic respiratory failure. Duration: Days/month/years: Weeks Listed conditions leading to cause of (due to or as a consequence of) : COVID-19 pneumonia Day/month/years: Weeks Listed other significant conditions contributing to but not resulting in the underlying cause of : Atrial fibrillation Did tobacco contribute to : No patient was a non-smoker.
== END 2021-07-29 22:10 | DRG 177 ==
LOC: ED 22:11 → MS3 07-14 05:06
PROVIDERS: Internal Medicine; Internal Medicine Critical Care Medicine; Admitting Provider Family Medicine; Emergency Provider Emergency Medicine; PCP Internal Medicine; Visit Provider Family Medicine
DX: U07.1 COVID-19 (principal); J12.82 Pneumonia due to coronavirus disease 2019; J96.01 Acute respiratory failure with hypoxia; I31.3 Pericardial effusion (noninflammatory); Z68.42 Body mass index [BMI] 45.0-49.9, adult; B17.8 Other specified acute viral hepatitis; I49.1 Atrial premature depolarization; I49.3 Ventricular premature depolarization; I48.91 Unspecified atrial fibrillation; R04.0 Epistaxis; F40.240 Claustrophobia; R55 Syncope and collapse; Z66 Do not resuscitate; E66.01 Morbid (severe) obesity due to excess calories; R32 Unspecified urinary incontinence; Z91.19 Patient's noncompliance with other medical treatment and regimen; Z96.653 Presence of artificial knee joint, bilateral
CPT/HCPCS: 36415; 71045; 71275; 80048; 80053; 83605; 83735; 84100; 84443; 84484; 85025; 85379; 87040; 87070; 87205; 87426; 93005; 93306; 94003; 94640; 94660; 94668; 94762; 99251; 99285; J7030; J7050; Q9967; A4216; G0463; J1940